=== PATIENT | male | born 1950 | race African-American/Black ===

== ENCOUNTER 2019-09-18 09:07 | Inpatient (IN) | payer OTHER ==
--- NOTE | 2019-09-18 09:26 | PDOC ---
History of Present Illness - General Chief Complaint: Shortness of Breath Stated Complaint: SOB Time Seen by Provider: 09/18/19 09:24 History Source: Patient Exam Limitations: No Limitations - History of Present Illness Initial Comments: 09/18/19 11:21 69 yo M with a hx of schizophrenia, COPD, CAD (s/p pacemaker), aortic aneurysm, CVA, and previous [place] presents to the emergency department with SOB that began yesterday. The patient is presenting from [facility] (formerly [facility]). Per the patient, he started having SOB last night and was unable to tolerate laying down. He does not use home O2. Denies the following: fevers, chills, cough, chest pain, lightheadedness, headache, arm and neck pain, back pain, and abdominal pain. Allergies: PCN 09/18/19 13:44 Past History - Past Medical History Allergies/Adverse Reactions: Allergies Allergy/AdvReac Type Severity Reaction Status Date / Time Penicillins Allergy Verified 09/18/19 09:31 Home Medications: Ambulatory Orders Albuterol Sulfate Inhaler - [Ventolin HFA Inhaler -] 1 puff IH TID 09/18/19 Amantadine HCl [Amantadine] 100 mg PO DAILY 09/18/19 Carbidopa/Levodopa 10/100 [Sinemet 10/100 -] 1 each PO BID 09/18/19 Citalopram Hydrobromide [Celexa -] 20 mg PO DAILY 09/18/19 Ferrous Sulfate 325 mg PO DAILY 09/18/19 Fluticasone Prop 0.05% Nasal [Flonase -] 2 spray NS DAILY 09/18/19 Fluticasone/Salmeterol [Advair 250-50 Diskus] 1 each IH DAILY 09/18/19 Haloperidol Lactate [Haldol] 5 mg IM MONTHLY 09/18/19 Ipratropium/Albuterol Sulfate [Combivent Respimat 20-100 Mcg] 1 gm IH QID Latanoprost/Pf [Latanoprost 0.005% Eye Drop] 1 drop OU DAILY 09/18/19 Omeprazole Magnesium [Prilosec Otc] 20 mg PO DAILY 09/18/19 Risperidone [Risperdal] 1 mg PO BID 09/18/19 Umeclidinium [place] [Incruse Ellipta] 1 puff IH DAILY 09/18/19 Diltiazem Cd [Cardizem Cd -] 180 mg PO DAILY #30 cap.cd.24h 09/24/19 Folic Acid - 1 mg PO DAILY tablet 09/24/19 Losartan Potassium [Cozaar -] 50 mg PO DAILY #30 tablet 09/24/19 Metoprolol Succinate [Toprol XL -] 100 mg PO BID #60 tab.sr.24h 09/24/19 Simvastatin [Zocor] 20 mg PO HS #30 tablet 09/24/19 Thiamine HCl [Vitamin B1 -] 100 mg PO DAILY tablet 09/24/19 Anemia: No Asthma: No Cancer: No Cardiac Disorders: No CVA: No COPD: No CHF: No Dementia: No Diabetes: No GI Disorders: No Disorders: No HTN: Yes Hypercholesterolemia: Yes Liver Disease: No Seizures: No Thyroid Disease: No - Surgical History Cardiac Surgery: Yes (open heart sx in 1965) - Psycho Social/Smoking Cessation Hx Smoking History: Current every day smoker Have you smoked in the past 12 months: Yes Number of Cigarettes Smoked Daily: 10 'Breaking Loose' booklet given: 10/08/16 Hx Alcohol Use: Yes Drug/Substance Use Hx: No Substance Use Type: Alcohol Hx Substance Use Treatment: Yes Review of Systems - Review of Systems Able to Perform ROS?: Yes Is the patient limited Sami proficient: No Constitutional: No: Chills, Diaphoresis, Fever, Weakness HEENTM: No: Eye Pain, Ear Pain, Nose Pain, Throat Pain, Mouth Pain Respiratory: Yes: Shortness of Breath, SOB with Exertion, SOB at Rest. No: Cough, Hemoptysis Cardiac (ROS): No: Chest Pain, Lightheadedness, Palpitations, Chest Tightness ABD/GI: No: Constipated, Diarrhea, Nausea, Rectal Bleeding, Vomiting, Tarry Stools : No: Burning, Dysuria, Hematuria Musculoskeletal: No: Back Pain, Joint Pain, Neck Pain Integumentary: No: Bruising, Erythema, Rash Neurological: No: Headache, Numbness, Tingling, Tremors Psychiatric: No: Change in Appetite Endocrine: No: Unexplained Weight Loss Hematologic/Lymphatic: No: Anemia *Physical Exam - Physical Exam General Appearance: Yes: Nourished, Appropriately Dressed. No: Apparent Distress, Intoxicated HEENT: positive: EOMI, HYACINTH, Normal Voice, Symmetrical, Pharynx Normal, Hearing Grossly Normal. negative: Pale Conjunctivae, Scleral Icterus (R), Scleral Icterus (L), Muffled/Hoarse voice, Pharyngeal Erythema, Tonsillar Exudate, Tonsillar Erythema, Nasal Congestion, Rhinorrhea, Sinus Tenderness, Excessive drooling Neck: positive: Trachea midline, Supple. negative: Tender, Lymphadenopathy (R) , Lymphadenopathy (L), Tender lateral, Tender midline Respiratory/Chest: positive: Decreased Breath Sounds. negative: Chest Tender, Respiratory Distress, Accessory Muscle Use, Crackles, Rales, Rhonchi, Stridor, Wheezing Cardiovascular: positive: Regular Rhythm, S1, S2, Tachycardia, Systolic Murmur ( grade 1) Gastrointestinal/Abdominal: positive: Normal Bowel Sounds, Flat, Soft. negative : Tender, Distended, Guarding, Rebound Lymphatic: negative: Adenopathy Musculoskeletal: positive: Normal Inspection. negative: CVA Tenderness, Vertebral Tenderness Extremity: positive: Normal Capillary Refill, Normal Inspection, Normal Range of Motion. negative: Tender, Swelling, Calf Tenderness Integumentary: positive: Normal Color, Dry, Warm Neurologic: positive: Fully Oriented, Alert, Normal Mood/Affect ED Treatment Course - LABORATORY CBC & Chemistry Diagram: 09/22/19 06:18 09/23/19 05:48 Medical Decision Making - Medical Decision Making 69 yo M with a hx of schizophrenia, COPD, CAD (s/p pacemaker), aortic aneurysm, CVA, and previous WI presents to the emergency department with SOB that began yesterday. Initial vitals: Initial Vital Signs Temp Pulse Resp BP Pulse Ox 98.6 F 108 H 25 H 117/88 93 L 09/18/19 09:25 09/18/19 09:25 09/18/19 09:25 09/18/19 09:25 09/18/19 09:25 Work up: patient presents with SOB that can be secondary to COPD vs CHF exacerbation or a mixed aspect. The patient endorses SOB with positional changes while in bed and is unable to lay down. Will obtain cbc, cmp, trops, bnp, CXR. Laboratory Tests 09/18/19 09/18/19 09/18/19 10:15 10:15 10:15 WBC 14.6 H RBC 3.77 L Hgb 11.0 L Hct 32.9 L MCV 87.2 MCH 29.2 MCHC 33.5 RDW 14.3 Plt Count 160 D MPV 7.1 L D Absolute Neuts (auto) 13.3 H Neutrophils % 90.8 H Lymphocytes % 2.6 L Monocytes % 6.3 Eosinophils % 0.2 Basophils % 0.1 Nucleated RBC % 0 PT with INR 19.50 H INR 1.64 H Sodium 116 L* Potassium 5.3 H Chloride 84 L Carbon Dioxide 23 Anion Gap 9 BUN 19.9 H Creatinine 1.1 Est GFR (CKD-EPI)AfAm 79.52 Est GFR (CKD-EPI)NonAf 68.61 Random Glucose 117 H Calcium 8.4 L Total Bilirubin 1.0 AST 27 ALT 27 Alkaline Phosphatase 66 Creatine Kinase 260 Creatine Kinase Index 1.8 CK-MB (CK-2) 4.8 H Troponin I < 0.02 B-Natriuretic Peptide 1009.1 H Total Protein 7.4 Albumin 3.6 Urine Color Urine Appearance Urine pH Ur Specific [place] Urine Protein Urine Glucose (UA) Urine Ketones Urine Blood Urine Nitrite Urine Bilirubin Urine Urobilinogen Ur Leukocyte Esterase Urine Osmolality Ur Random Sodium Influenza A (Rapid) Influenza B (Rapid) 09/18/19 09/18/19 09/18/19 12:30 12:30 12:30 WBC RBC Hgb Hct MCV MCH MCHC RDW Plt Count MPV Absolute Neuts (auto) Neutrophils % Lymphocytes % Monocytes % Eosinophils % Basophils % Nucleated RBC % PT with INR INR Sodium Potassium Chloride Carbon Dioxide Anion Gap BUN Creatinine Est GFR (CKD-EPI)AfAm Est GFR (CKD-EPI)NonAf Random Glucose Calcium Total Bilirubin AST ALT Alkaline Phosphatase Creatine Kinase Creatine Kinase Index CK-MB (CK-2) Troponin I B-Natriuretic Peptide Total Protein Albumin Urine Color Yellow Urine Appearance Clear Urine pH 7.0 Ur Specific [place] 1.004 L Urine Protein Negative Urine Glucose (UA) Negative Urine Ketones Negative Urine Blood Negative Urine Nitrite Negative Urine Bilirubin Negative Urine Urobilinogen 1.0 Ur Leukocyte Esterase Negative Urine Osmolality 116 L Ur Random Sodium 14 L Influenza A (Rapid) Influenza B (Rapid) 09/18/19 09/18/19 12:30 12:34 WBC RBC Hgb Hct MCV MCH MCHC RDW Plt Count MPV Absolute Neuts (auto) Neutrophils % Lymphocytes % Monocytes % Eosinophils % Basophils % Nucleated RBC % PT with INR INR Sodium 119 L Potassium 5.0 Chloride 85 L Carbon Dioxide 24 Anion Gap 10 BUN 19.4 H Creatinine 1.0 Est GFR (CKD-EPI)AfAm 89.23 Est GFR (CKD-EPI)NonAf 76.99 Random Glucose 109 H Calcium 8.6 Total Bilirubin AST ALT Alkaline Phosphatase Creatine Kinase Creatine Kinase Index CK-MB (CK-2) Troponin I B-Natriuretic Peptide Total Protein Albumin Urine Color Urine Appearance Urine pH Ur Specific [place] Urine Protein Urine Glucose (UA) Urine Ketones Urine Blood Urine Nitrite Urine Bilirubin Urine Urobilinogen Ur Leukocyte Esterase Urine Osmolality Ur Random Sodium Influenza A (Rapid) Negative Influenza B (Rapid) Negative Patient treated with duoneb and solumedrol. WBC elevated. 116 Na and 5.3 K. Trop negative with increased BNP. Obtained urine osm and Na to determine etiology of hyponatremia. Patient has hyonatremia in a hypervolemic state with CHF exacerbation. Nephrology was consulted and aware CXR shows a patchy infiltrate on the right side; possibly PNA in setting of hyponatremia. Legionella antigen negative. Aztreonam and Vancomycin started 09/18/19 13:55 POCUS: reveals bilateral apical B lines, no pleural effusions, moderate reduction of EF on LV without pericardial effusion. IVC dilated with <50% collapsibility. Patient started on bipap. Patient to be admitted to hospital for severe hyponatremia. Patient at this time will not require hypertonic saline as they are not in an AMS state. EKG: ventricular rate is 108 bpm, Sinus tachycardia with q waves in V2-V3. No ST elevations or depressions. Discharge - Discharge Information Problems reviewed: Yes Clinical Impression/Diagnosis: CHF exacerbation, COPD (chronic obstructive pulmonary disease), Hyponatremia - Follow up/Referral - Patient Discharge Instructions - Post Discharge Activity
[2019-09-18] MEDS ORDERED: methylPREDNISolone NA SUCC 125 MG/2 ML VIAL IVPB ONE (09:53)
[2019-09-18] MEDS ORDERED: ALBUTEROL SO4 2.5/IPRATROPIUM 0.5 INH SOL 3 ML VIAL.NEB. NEB ONE ×2 (09:53→09:57)
[2019-09-18] MEDS ORDERED: methylPREDNISolone NA SUCC 125 MG/2 ML VIAL ONE (09:57)
[2019-09-18 10:39] LABS: BASO % 0.1 % (0-2.0); EOS % 0.2 % (0-4.5); HEMATOCRIT 32.9 % (35.4-49); LYMPH % 2.6 % (8-40); MCH 29.2 pg (25.7-33.7); MCHC 33.5 g/dl (32.0-35.9); MEAN CELL VOLUME 87.2 fl (80-96); MEAN PLT VOLUME 7.1 fl (7.5-11.1); MONO % 6.3 % (3.8-10.2); NEUT % 90.8 % (42.8-82.8); PLATELET COUNT 160 K/MM3 (134-434); RBC 3.77 M/mm3 (4.00-5.60); RDW 14.3 % (11.9-15.9); WHITE BLOOD COUNT 14.6 K/mm3 (4.0-10.0)
[2019-09-18 10:56] LABS: INR 1.64 (0.83-1.09); PROTHROMBIN TIME (PATIENT) 19.5 SEC (9.7-13.0)
--- NOTE | 2019-09-18 11:19 | PDOC ---
Documentation entered by Madelaine Obregon SCRIBE, acting as scribe for Misty Bacon MD. Misty Bacon MD: This documentation has been prepared by the Mindi la Brenda, SCRIBE, under my direction and personally reviewed by me in its entirety. I confirm that the documentation accurately reflects all work, treatment, procedures, and medical decision making performed by me. Attending Attestation - Resident Resident Name: Nigel Malone - ED Attending Attestation I have performed the following: I have examined & evaluated the patient, The case was reviewed & discussed with the resident, I agree w/resident's findings & plan, Exceptions are as noted - HPI HPI: 69 year old male, with a significant PMH of schizophrenia, depression, HTN and HLD who presents with SOB since last night. Denies any fever, recent illness, cough, medication non-adherence. Allergies: Penicillins Past surgical history: Open heart sx in 1965 Social history: Current everyday smoker and alcohol use. PCP: Ahmet - Physicial Exam PE: GENERAL: Awake, alert, and fully oriented, in no acute distress HEAD: No signs of trauma EYES: PERRLA, EOMI, sclera anicteric, conjunctiva clear ENT: Auricles normal inspection, hearing grossly normal, nares patent, oropharynx clear without exudates. Moist mucosa NECK: Normal ROM, supple, no lymphadenopathy, JVD, or masses LUNGS: Dec air entry B/L. No wheezes, no crackles HEART: Regular rate and rhythm, normal S1 and S2, no murmurs, rubs or gallops ABDOMEN: Soft, nontender, normoactive bowel sounds. No guarding, no rebound. No masses EXTREMITIES: Normal range of motion, no edema. No clubbing or cyanosis. No cords, erythema, or tenderness NEUROLOGICAL: Cranial nerves II through XII grossly intact. Normal speech. Motor and sensation intact SKIN: Warm, dry, normal turgor, no rashes or lesions noted. - Medical Decision Making Pt with SOB, history of COPD/CHF. Suspect this is a mixed disturbance. Will obtain labs, CXR. Will place on BiPAP, as he appears to have intravascular depletion, and lasix may cause hypotension at present. Will monitor on BiPAP, will consider lasix when he improves. Addendum: Patient found to have hyponatremia which appears to be hypervolemic. Case discussed with renal. As patient is not altered, will not consider hypertonic saline at this point. Will admit.
[2019-09-18 11:36] LABS: ALBUMIN 3.6 g/dl (3.4-5.0); ALK PHOS 66 U/L (45-117); ANION GAP 9 MMOL/L (8-16); BLOOD UREA NITROGEN 19.9 mg/dL (7-18); CALCIUM 8.4 mg/dL (8.5-10.1); CHLORIDE 84 mmol/L (98-107); CO2 23 mmol/L (21-32); CREATININE 1.1 mg/dL (0.55-1.3); GLUCOSE,RANDOM 117 mg/dL (74-106); N-TERMINAL BNP 1009.1 pg/ml (5-125); POTASSIUM 5.3 mmol/L (3.5-5.1); SGOT/AST 27 U/L (15-37); SGPT/ALT 27 U/L (13-61); TOT PROT 7.4 g/dl (6.4-8.2)
[2019-09-18 11:44] LABS: SODIUM 116 mmol/L (136-145)
[2019-09-18] MEDS ORDERED: AZITHROMYCIN IVPB 500 MG in DEXTROSE 5%-WATER - 250 ML IVPB ONE (12:11)
[2019-09-18] MEDS ORDERED: AZTREONAM 2 GM in DEXTROSE 5%-WATER 100 ML IVPB ONE (12:11)
[2019-09-18] MEDS ORDERED: VANCOMYCIN 2,000 MG in DEXTROSE 5%-WATER - 250 ML IVPB ONE (12:16)
[2019-09-18] MEDS ORDERED: VANCOMYCIN 2,000 MG in DEXTROSE 5%-WATER - 500 ML IVPB ONE (12:24)
[2019-09-18] MEDS ORDERED: AZITHROMYCIN IVPB 500 MG/250 ML BAG IVPB ONE (12:45)
[2019-09-18 13:00] LABS: URINE APPEARANCE CLEAR; URINE BILIRUBIN NEGATIVE (NEGATIVE); URINE COLOR YELLOW; URINE GLUCOSE (UA) NEGATIVE (NEGATIVE); URINE KETONE NEGATIVE (NEGATIVE); URINE LEUK ESTERASE NEGATIVE (NEGATIVE); URINE NITRITE NEGATIVE (NEGATIVE); URINE PROTEIN NEGATIVE (NEGATIVE)
--- NOTE | 2019-09-18 13:17 | EKG ---
Test Reason : Blood Pressure : / mmHG Vent. Rate : 108 BPM Atrial Rate : 108 BPM P-R Int : 188 ms QRS Dur : 080 ms QT Int : 316 ms P-R-T Axes : 051 -05 058 degrees QTc Int : 423 ms SINUS TACHYCARDIA ANTEROSEPTAL INFARCT , AGE UNDETERMINED ABNORMAL ECG NO PREVIOUS ECGS AVAILABLE Confirmed by VIOLA DE LA VEGA MD ([id number]) on 09/18/2019 1:16:58 PM Referred By: Confirmed By:VIOLA DE LA VEGA MD
[2019-09-18 13:25] LABS: BLOOD UREA NITROGEN 19.4 mg/dL (7-18); CALCIUM 8.6 mg/dL (8.5-10.1)
--- NOTE | 2019-09-18 14:19 | PN ---
Teaching Attending Note Name of Resident: Radha Ramsey ATTENDING PHYSICIAN STATEMENT I saw and evaluated the patient. I reviewed the resident's note and discussed the case with the resident. I agree with the resident's findings and plan as documented. SUBJECTIVE: He is a 69 Y/O M W Etoh abuse, chronic hyponatermia( sen in the labs in [facility]) known Afib/ Aflutter who was supposed to be on Amiodarone for rate control and PPM ( tachybradicadia). He was seen in the EP clinic in [place] [id number] on 09/16/2019 during that visit he had Mary/ AFL with RVR, and plan was to monitor him as he had not started Amiodarone at home and if he still keeps to be tachycardic to start him on Amiodarone. He states that for 1 week he has been having gradual onset, worsening RUELAS, denies any palpitation, lightheadedness with the episode. At this time, He states that he called 911 as this episode was more severe than the ones before.states that he has taken all of his medications this morning. In the ED there was concern for volume overload, Patient was placed on BIPAP. but he has not been hypoxic since admission to the ED. He has no sign of volume overload, has very trace edema, rales are very minimal. he has had no recent TTE of cardiac cath (last cath in 2008 with mid LAD disease with no need for intervention) OBJECTIVE: CBCD WBC 14.6 K/mm3 (4.0-10.0) H 09/18/19 10:15 RBC 3.77 M/mm3 (4.00-5.60) L 09/18/19 10:15 Hgb 11.0 GM/dL (11.7-16.9) L 09/18/19 10:15 Hct 32.9 % (35.4-49) L 09/18/19 10:15 MCV 87.2 fl (80-96) 09/18/19 10:15 MCHC 33.5 g/dl (32.0-35.9) 09/18/19 10:15 RDW 14.3 % (11.9-15.9) 09/18/19 10:15 Plt Count 160 K/MM3 (134-434) D 09/18/19 10:15 MPV 7.1 fl (7.5-11.1) L D 09/18/19 10:15 CMP Sodium 119 mmol/L (136-145) L 09/18/19 12:34 Potassium 5.0 mmol/L (3.5-5.1) 09/18/19 12:34 Chloride 85 mmol/L (98-107) L 09/18/19 12:34 Carbon Dioxide 24 mmol/L (21-32) 09/18/19 12:34 Anion Gap 10 MMOL/L (8-16) 09/18/19 12:34 BUN 19.4 mg/dL (7-18) H 09/18/19 12:34 Creatinine 1.0 mg/dL (0.55-1.3) 09/18/19 12:34 Random Glucose 109 mg/dL (74-106) H 09/18/19 12:34 Calcium 8.6 mg/dL (8.5-10.1) 09/18/19 12:34 Total Bilirubin 1.0 mg/dL (0.2-1) 09/18/19 10:15 AST 27 U/L (15-37) 09/18/19 10:15 ALT 27 U/L (13-61) 09/18/19 10:15 Alkaline Phosphatase 66 U/L (45-117) 09/18/19 10:15 Total Protein 7.4 g/dl (6.4-8.2) 09/18/19 10:15 Albumin 3.6 g/dl (3.4-5.0) 09/18/19 10:15 CARDIAC ENZYMES Creatine Kinase 260 U/L (26-308) 09/18/19 10:15 Troponin I < 0.02 ng/ml (0.00-0.05) 09/18/19 10:15 Vital Signs - 24 hr 09/18/19 09/18/19 09/18/19 09:25 09:30 09:42 Temperature 98.6 F 98.6 F Pulse Rate 108 H Pulse Rate [ 105 H Apical] Respiratory 25 H 25 H Rate Blood Pressure 117/88 Blood Pressure 117/88 [Right Arm] O2 Sat by Pulse 93 L 95 95 Oximetry (%) 09/18/19 09/18/19 09/18/19 10:05 11:52 12:19 Temperature 98.1 F Pulse Rate Pulse Rate [ 110 H 103 H Apical] Respiratory 20 22 H Rate Blood Pressure Blood Pressure 115/85 115/85 [Right Arm] O2 Sat by Pulse 100 95 98 Oximetry (%) 09/18/19 12:46 Temperature 99.5 F Pulse Rate Pulse Rate [ Apical] Respiratory Rate Blood Pressure Blood Pressure [Right Arm] O2 Sat by Pulse Oximetry (%) PhEX: Saturating 100% on RA, off BIPAP, not tachycardic and in no respiratory distress at this time. CVS:S1S2, tachy to 120 Lungs: Has good air movement, minimal bibasilar rales no wheezing Abd; murphy hernia with no tenderness EXT: has no edema ASSESSMENT AND PLAN: At this time the RUELAS and SOB is most likely in the setting of demand ischemia rather than pulmonary etiology such as pulmonary edema VS COPD exacerbation. At this time will treat for possible [place] ( is already on AC), will get better HR control with starting the patient on Amiodarone. No need for diuretics at this time. Will C/W BB Afib/ afluter with RVR, rate cotrol , C/W AC will get TTE Will MINOO Will give DAPT, high dose statin He has known CAD, is active smoker, obese, Etoh abuser Hyponatremia: chronic , will send urine osmolality and studies, most likely in the setting of chronic Etoh abuse Etoh abuse: 3-4 x24 ounce beers/ day Will start on thaimin, folate, monitor for withdrawal.
--- NOTE | 2019-09-18 14:19 | CONSULT ---
Consultation: REQUESTING PROVIDER: Dr Bacon CONSULT REQUEST: Hyponatremia HISTORY OF PRESENT ILLNESS: 69 y.o male with PMH of schizophrenia, CAD, CABG (1965) AAA, CVA, MT presents to the ED with complaints of shortness of breath. patient states that his shortness of breath began last night- he states that he was walking around his apartment and developed sudden onset of dyspnea- he denies any cough/fevers or sick contacts. He also endorsed orthopnea; he does not feel that his legs are swollen-he does use inhalers and said that last night he had to use them numerous times. he does not endorse any dizziness/weakness/numbness/ changes in gait; patient does endorse drinking around 3 24z a day in the ED- patient was placed on BIPAP notable albs: Na 115-->119, K 5.3-->5.0, Cr 1.0, BNP 1009 CXR done showing cardiomegaly with possible infiltrate developing at the left base- patient was given duonebs; vanc/ceftriaxone/azithro REVIEW OF SYSTEMS: CONSTITUTIONAL: Absent: fever, chills, diaphoresis, generalized weakness, malaise, loss of appetite, weight change HEENT: Absent: rhinorrhea, nasal congestion, throat pain, throat swelling, difficulty swallowing, mouth swelling, ear pain, eye pain, visual changes CARDIOVASCULAR: Absent: chest pain, syncope, palpitations, irregular heart rate, lightheadedness , peripheral edema RESPIRATORY: Present: shortness of breath, dyspnea with exertion, orthopnea Absent: cough, , wheezing, stridor, hemoptysis GASTROINTESTINAL: Absent: abdominal pain, abdominal distension, nausea, vomiting, diarrhea, constipation, melena, hematochezia GENITOURINARY: Absent: dysuria, frequency, urgency, hesitancy, hematuria, flank pain, genital pain MUSCULOSKELETAL: Absent: myalgia, arthralgia, joint swelling, back pain, neck pain SKIN: Absent: rash, itching, pallor HEMATOLOGIC/IMMUNOLOGIC: Absent: easy bleeding, easy bruising, lymphadenopathy, frequent infections ENDOCRINE: Absent: unexplained weight gain, unexplained weight loss, heat intolerance, cold intolerance NEUROLOGIC: Absent: headache, focal weakness or paresthesias, dizziness, unsteady gait, seizure, mental status changes, bladder or bowel incontinence PSYCHIATRIC: Absent: anxiety, depression, suicidal or homicidal ideation, hallucinations. PHYSICAL EXAMINATION Vital Signs - 24 hr 01/17/20 01/17/20 01/17/20 09:25 09:30 09:42 Temperature 98.6 F 98.6 F Pulse Rate 108 H Pulse Rate [ 105 H Apical] Respiratory 25 H 25 H Rate Blood Pressure 117/88 Blood Pressure 117/88 [Right Arm] O2 Sat by Pulse 93 L 95 95 Oximetry (%) 09/18/19 09/18/19 09/18/19 10:05 11:52 12:19 Temperature 98.1 F Pulse Rate Pulse Rate [ 110 H 103 H Apical] Respiratory 20 22 H Rate Blood Pressure Blood Pressure 115/85 115/85 [Right Arm] O2 Sat by Pulse 100 95 98 Oximetry (%) 09/18/19 12:46 Temperature 99.5 F Pulse Rate Pulse Rate [ Apical] Respiratory Rate Blood Pressure Blood Pressure [Right Arm] O2 Sat by Pulse Oximetry (%) GENERAL: Awake, alert, and fully oriented, wearing BIPAP in no acute distress.. EYES: PEERLA: EOMI: no scleral icterus NECK: no JVD; no lymphadenopathy LUNGS: CTA B/L; no rales, rhonchi or weezing . HEART: Regular rate and rhythm, normal S1 and S2 without murmur, rub or gallop. ABDOMEN: Soft, NT/ND +BS in all 4 quadrants . MUSCULOSKELETAL: Normal range of motion at all joints. No bony deformities or tenderness. No CVA tenderness. EXTREMITIES: warm; well-perfused, no clubbing/cyanosis trace LE edema B.L PSYCHIATRIC: Cooperative. Good eye contact. Appropriate mood and affect. SKIN: Warm, dry, normal turgor, no rashes or lesions noted. Laboratory Results - last 24 hr 09/18/19 09/18/19 09/18/19 10:15 10:15 10:15 WBC 14.6 H RBC 3.77 L Hgb 11.0 L Hct 32.9 L MCV 87.2 MCH 29.2 MCHC 33.5 RDW 14.3 Plt Count 160 D MPV 7.1 L D Absolute Neuts (auto) 13.3 H Neutrophils % 90.8 H Lymphocytes % 2.6 L Monocytes % 6.3 Eosinophils % 0.2 Basophils % 0.1 Nucleated RBC % 0 PT with INR 19.50 H INR 1.64 H Sodium 116 L* Potassium 5.3 H Chloride 84 L Carbon Dioxide 23 Anion Gap 9 BUN 19.9 H Creatinine 1.1 Est GFR (CKD-EPI)AfAm 79.52 Est GFR (CKD-EPI)NonAf 68.61 Random Glucose 117 H Calcium 8.4 L Total Bilirubin 1.0 AST 27 ALT 27 Alkaline Phosphatase 66 Creatine Kinase 260 Creatine Kinase Index 1.8 CK-MB (CK-2) 4.8 H Troponin I < 0.02 B-Natriuretic Peptide 1009.1 H Total Protein 7.4 Albumin 3.6 Urine Color Urine Appearance Urine pH Ur Specific [place] Urine Protein Urine Glucose (UA) Urine Ketones Urine Blood Urine Nitrite Urine Bilirubin Urine Urobilinogen Ur Leukocyte Esterase Ur Random Sodium Influenza A (Rapid) Influenza B (Rapid) 09/18/19 09/18/19 09/18/19 12:30 12:30 12:30 WBC RBC Hgb Hct MCV MCH MCHC RDW Plt Count MPV Absolute Neuts (auto) Neutrophils % Lymphocytes % Monocytes % Eosinophils % Basophils % Nucleated RBC % PT with INR INR Sodium Potassium Chloride Carbon Dioxide Anion Gap BUN Creatinine Est GFR (CKD-EPI)AfAm Est GFR (CKD-EPI)NonAf Random Glucose Calcium Total Bilirubin AST ALT Alkaline Phosphatase Creatine Kinase Creatine Kinase Index CK-MB (CK-2) Troponin I B-Natriuretic Peptide Total Protein Albumin Urine Color Yellow Urine Appearance Clear Urine pH 7.0 Ur Specific [place] 1.004 L Urine Protein Negative Urine Glucose (UA) Negative Urine Ketones Negative Urine Blood Negative Urine Nitrite Negative Urine Bilirubin Negative Urine Urobilinogen 1.0 Ur Leukocyte Esterase Negative Ur Random Sodium 14 L Influenza A (Rapid) Negative Influenza B (Rapid) Negative 09/18/19 12:34 WBC RBC Hgb Hct MCV MCH MCHC RDW Plt Count MPV Absolute Neuts (auto) Neutrophils % Lymphocytes % Monocytes % Eosinophils % Basophils % Nucleated RBC % PT with INR INR Sodium 119 L Potassium 5.0 Chloride 85 L Carbon Dioxide 24 Anion Gap 10 BUN 19.4 H Creatinine 1.0 Est GFR (CKD-EPI)AfAm 89.23 Est GFR (CKD-EPI)NonAf 76.99 Random Glucose 109 H Calcium 8.6 Total Bilirubin AST ALT Alkaline Phosphatase Creatine Kinase Creatine Kinase Index CK-MB (CK-2) Troponin I B-Natriuretic Peptide Total Protein Albumin Urine Color Urine Appearance Urine pH Ur Specific [place] Urine Protein Urine Glucose (UA) Urine Ketones Urine Blood Urine Nitrite Urine Bilirubin Urine Urobilinogen Ur Leukocyte Esterase Ur Random Sodium Influenza A (Rapid) Influenza B (Rapid) ASSESSMENT/PLAN: 69 y.o male with PMH of schizophrenia, CAD, CABG (1965) AAA, CVA, MT presents to the ED with complaints of shortness of breath. patient states that his shortness of breath began last night found to be hyponatremic to 116 on arrival #Hyponatremia f/u echo results fluid restriction f/u urine and plasma osmolalities avoid overcorrection of sodium; no more than 8-10 in 24hours BMP q4H Dispo: We will continue to follow the patient. Thank you for this consultative opportunity. Visit type - Emergency Visit Emergency Visit: Yes ED Registration Date: 09/18/19 Care time: The patient presented to the Emergency Department on the above date and was hospitalized for further evaluation of their emergent condition. - New Patient This patient is new to me today: Yes Date on this admission: 09/18/19 - Critical Care Critical Care patient: No ATTENDING PHYSICIAN STATEMENT I saw and evaluated the patient. I reviewed the resident's note and discussed the case with the resident. I agree with the resident's findings and plan as documented. SUBJECTIVE: OBJECTIVE: ASSESSMENT AND PLAN:
[2019-09-18] MEDS ORDERED: METOPROLOL TARTRATE 5 MG/5 ML VIAL IVPUSH ONE (14:47)
[2019-09-18] MEDS ORDERED: METOPROLOL TARTRATE 5 MG/5 ML VIAL ONE (14:51)
--- NOTE | 2019-09-18 14:59 | HP ---
CHIEF COMPLAINT: sob PCP: Dr. Leo HISTORY OF PRESENT ILLNESS: 69 y.o male with PMHx of schizophrenia, CAD, CABG (1965) AAA, PAfib/Aflutter, s/ p recent PPM, ETOH abuse (3-24oz a day) dependence , chronic hyponatremia, presenting to the ED from [facility] because of worsening SOB over the past week with exertion. Says he used to walk 2-3 blocks before getting tired but now has to slow down when walking the same amount. He presented today after developing severe SOB when walking. He says he sees a assistant sales director but does not recall their name. Per [facility] records, He was recently discharged a few months ago from [facility] with fall, found hyponatremic and had Afib/Aflutter with RVR, then transferred for [employer] Pacemaker placement on 07/28. He was then seen at [facility] on 09/16/2019 during that visit he had Afib/AFL with RVR, and the plan plan was to monitor him and if not improved to be started on Amiodarone for tachy-dora syndrome, which was never done. Patient denies palpitations, recent illness, nausea, vomiting, fevers, chills, diarrhea, urinary changes. In the ER there was concern for volume overload and placed the patient on BiPap= . Na 115-->119, K 5.3-->5.0, Cr 1.0, BNP 1009 CXR done showing cardiomegaly with possible infiltrate developing at the left base- patient was given duonebs; vanc /ceftriaxone/azithro Recent Travel: none PAST MEDICAL HISTORY: per HPI PAST SURGICAL HISTORY: Social History: Smoking: smokes half ppd Alcohol: 3-24oz beers a day Drugs: denies Allergies Penicillins Allergy (Verified 09/18/19 09:31) HOME MEDICATIONS: Home Medications Medication Instructions Recorded Albuterol Sulfate Inhaler - 1 puff IH TID 09/18/19 [Ventolin Hfa Inhaler -] Amantadine HCl [Amantadine] 100 mg PO DAILY 09/18/19 Apixaban [Eliquis] 5 mg PO BID 09/18/19 Carbidopa/Levodopa [Sinemet 1 each PO BID 09/18/19 -] Citalopram Hydrobromide [Celexa -] 20 mg PO DAILY 09/18/19 Diclofenac Potassium [Zipsor] 25 mg PO BID 09/18/19 Ferrous Sulfate 325 mg PO DAILY 09/18/19 Fluticasone Prop 0.05% Nasal 2 spray NS DAILY 09/18/19 [Flonase -] Fluticasone/Salmeterol [Advair 1 each IH DAILY 09/18/19 250-50 Diskus] Haloperidol Lactate [Haldol] 5 mg IM MONTHLY 09/18/19 Ipratropium/Albuterol Sulfate 1 gm IH QID 09/18/19 [Combivent Respimat Inhal [place]] Latanoprost/Pf [Latanoprost 0.005% 1 drop OU DAILY 09/18/19 Eye Drop] Losartan Potassium [Cozaar] 100 mg PO DAILY 09/18/19 Metoprolol Succinate [Toprol Xl] 25 mg PO DAILY 09/18/19 Nifedipine ER [Procardia Xl -] 30 mg PO DAILY 09/18/19 Omeprazole Magnesium [Prilosec Otc] 20 mg PO DAILY 09/18/19 Risperidone [Risperdal] 1 mg PO BID 09/18/19 Simvastatin [Zocor -] 40 mg PO HS 09/18/19 Umeclidinium [place] [Incruse 1 puff IH DAILY 09/18/19 Ellipta] REVIEW OF SYSTEMS per HPI PHYSICAL EXAMINATION Vital Signs - 24 hr 09/18/19 09/18/19 09/18/19 09:25 09:30 09:42 Temperature 98.6 F 98.6 F Pulse Rate 108 H Pulse Rate [ 105 H Apical] Respiratory 25 H 25 H Rate Blood Pressure 117/88 Blood Pressure 117/88 [Right Arm] O2 Sat by Pulse 93 L 95 95 Oximetry (%) 09/18/19 09/18/19 09/18/19 10:05 11:52 12:19 Temperature 98.1 F Pulse Rate Pulse Rate [ 110 H 103 H Apical] Respiratory 20 22 H Rate Blood Pressure Blood Pressure 115/85 115/85 [Right Arm] O2 Sat by Pulse 100 95 98 Oximetry (%) 09/18/19 12:46 Temperature 99.5 F Pulse Rate Pulse Rate [ Apical] Respiratory Rate Blood Pressure Blood Pressure [Right Arm] O2 Sat by Pulse Oximetry (%) GENERAL: a/o x 3, in NAD. off bipap EYES: PEERLA: EOMI: no scleral icterus NECK: no JVD; no lymphadenopathy LUNGS: mild crackles at the bases HEART: Regular rate and rhythm, normal S1 and S2 without murmur, rub or gallop. ABDOMEN: Soft, nt, nd, +abdominal hernia EXTREMITIES: warm; trace LE edema b/l SKIN: Warm, dry, normal turgor, no rashes or lesions noted. Laboratory Results - last 24 hr 09/18/19 09/18/19 09/18/19 10:15 10:15 10:15 WBC 14.6 H RBC 3.77 L Hgb 11.0 L Hct 32.9 L MCV 87.2 MCH 29.2 MCHC 33.5 RDW 14.3 Plt Count 160 D MPV 7.1 L D Absolute Neuts (auto) 13.3 H Neutrophils % 90.8 H Lymphocytes % 2.6 L Monocytes % 6.3 Eosinophils % 0.2 Basophils % 0.1 Nucleated RBC % 0 PT with INR 19.50 H INR 1.64 H Sodium 116 L* Potassium 5.3 H Chloride 84 L Carbon Dioxide 23 Anion Gap 9 BUN 19.9 H Creatinine 1.1 Est GFR (CKD-EPI)AfAm 79.52 Est GFR (CKD-EPI)NonAf 68.61 Random Glucose 117 H Calcium 8.4 L Total Bilirubin 1.0 AST 27 ALT 27 Alkaline Phosphatase 66 Creatine Kinase 260 Creatine Kinase Index 1.8 CK-MB (CK-2) 4.8 H Troponin I < 0.02 B-Natriuretic Peptide 1009.1 H Total Protein 7.4 Albumin 3.6 Urine Color Urine Appearance Urine pH Ur Specific [place] Urine Protein Urine Glucose (UA) Urine Ketones Urine Blood Urine Nitrite Urine Bilirubin Urine Urobilinogen Ur Leukocyte Esterase Ur Random Sodium Influenza A (Rapid) Influenza B (Rapid) 09/18/19 09/18/19 09/18/19 12:30 12:30 12:30 WBC RBC Hgb Hct MCV MCH MCHC RDW Plt Count MPV Absolute Neuts (auto) Neutrophils % Lymphocytes % Monocytes % Eosinophils % Basophils % Nucleated RBC % PT with INR INR Sodium Potassium Chloride Carbon Dioxide Anion Gap BUN Creatinine Est GFR (CKD-EPI)AfAm Est GFR (CKD-EPI)NonAf Random Glucose Calcium Total Bilirubin AST ALT Alkaline Phosphatase Creatine Kinase Creatine Kinase Index CK-MB (CK-2) Troponin I B-Natriuretic Peptide Total Protein Albumin Urine Color Yellow Urine Appearance Clear Urine pH 7.0 Ur Specific [place] 1.004 L Urine Protein Negative Urine Glucose (UA) Negative Urine Ketones Negative Urine Blood Negative Urine Nitrite Negative Urine Bilirubin Negative Urine Urobilinogen 1.0 Ur Leukocyte Esterase Negative Ur Random Sodium 14 L Influenza A (Rapid) Negative Influenza B (Rapid) Negative 09/18/19 12:34 WBC RBC Hgb Hct MCV MCH MCHC RDW Plt Count MPV Absolute Neuts (auto) Neutrophils % Lymphocytes % Monocytes % Eosinophils % Basophils % Nucleated RBC % PT with INR INR Sodium 119 L Potassium 5.0 Chloride 85 L Carbon Dioxide 24 Anion Gap 10 BUN 19.4 H Creatinine 1.0 Est GFR (CKD-EPI)AfAm 89.23 Est GFR (CKD-EPI)NonAf 76.99 Random Glucose 109 H Calcium 8.6 Total Bilirubin AST ALT Alkaline Phosphatase Creatine Kinase Creatine Kinase Index CK-MB (CK-2) Troponin I B-Natriuretic Peptide Total Protein Albumin Urine Color Urine Appearance Urine pH Ur Specific [place] Urine Protein Urine Glucose (UA) Urine Ketones Urine Blood Urine Nitrite Urine Bilirubin Urine Urobilinogen Ur Leukocyte Esterase Ur Random Sodium Influenza A (Rapid) Influenza B (Rapid) ASSESSMENT/PLAN: PMHx of schizophrenia, CAD, CABG (1965) AAA, PAfib/Aflutter, s/p recent PPM, ETOH abuse (3-24oz a day) dependence , chronic hyponatremia, presenting to the ED from [facility] because of worsening SOB over the past week with exertion. #SOB -likely 2/2 CHF -trop neg x 2, FU repeat -tele monitoring -mild volume overload. if in respiratory distress give 20mg IV lasix. -echo -cont home meds -no amio at this time per cardiology -i/o -CXR done showing cardiomegaly with possible infiltrate developing at the left base. -no abx at this time. low clinical suspicion for pna #hx of Afib/Aflutter -rate control toprol 25mg BID per cards -cont ax #Severe hyponatremia -patient with chronic hyponatremia per records -fluid restriction -f/u urine and plasma osmolalities -avoid overcorrection of sodium; no more than 8-10 in 24hours -BMP q4H #CAD -cont. current management. #Etoh abuse -counseled patient on importance of quitting drinking. #dvt ppx -eliquis Visit type - Emergency Visit Emergency Visit: Yes ED Registration Date: 09/18/19 Care time: The patient presented to the Emergency Department on the above date and was hospitalized for further evaluation of their emergent condition. - New Patient This patient is new to me today: Yes Date on this admission: 09/22/19 - Critical Care Critical Care patient: No ATTENDING PHYSICIAN STATEMENT I saw and evaluated the patient. I reviewed the resident's note and discussed the case with the resident. I agree with the resident's findings and plan as documented. SUBJECTIVE: OBJECTIVE: ASSESSMENT AND PLAN:
[2019-09-18] MEDS ORDERED: NITROGLYCERIN SUBLINGUAL 1/200 0.3 MG BTL SL ONE (15:33)
[2019-09-18] MEDS ORDERED: AMIODARONE HCL 150 MG/3 ML VIAL IVPUSH ONE ×3 (15:38→16:30)
[2019-09-18] MEDS ORDERED: ASPIRIN 325 MG ENTERIC COATED TABLET (FP) PO ONE (15:43)
[2019-09-18] MEDS ORDERED: CLOPIDOGREL BISULFATE 300 MG TABLET PO ONE (15:43)
--- NOTE | 2019-09-18 16:01 | CON.CARD ---
Cardiology Consult (text) - Consultation Consultation Note: cc: sob hpi: 69 m hx schizophrenia, copd, afib with tachy/dora s/p ppm, cva, cad/mi with last cath 2008 with non obs dz, etoh abuse, smoker, here with sob. Past several days with sob and orthopnea. No cp palps dizzy loc pnd orthopnea le edema. Found to have na 116. pmh: per hpi psh: ppm social: +tob +etoh abuse fam: no premature cad, scd ros: per hpi; all others nl meds: Ambulatory Orders Albuterol Sulfate Inhaler - [Ventolin Hfa Inhaler -] 1 puff IH TID 09/18/19 Amantadine HCl [Amantadine] 100 mg PO DAILY 09/18/19 Apixaban [Eliquis] 5 mg PO BID 09/18/19 Carbidopa/Levodopa 10/100 [Sinemet 10/100 -] 1 each PO BID 09/18/19 Citalopram Hydrobromide [Celexa -] 20 mg PO DAILY 09/18/19 Diclofenac Potassium [Zipsor] 25 mg PO BID 09/18/19 Ferrous Sulfate 325 mg PO DAILY 09/18/19 Fluticasone Prop 0.05% Nasal [Flonase -] 2 spray NS DAILY 09/18/19 Fluticasone/Salmeterol [Advair 250-50 Diskus] 1 each IH DAILY 09/18/19 Haloperidol Lactate [Haldol] 5 mg IM MONTHLY 09/18/19 Ipratropium/Albuterol Sulfate [Combivent Respimat Inhal [place]] 1 gm IH QID 09/18 Latanoprost/Pf [Latanoprost 0.005% Eye Drop] 1 drop OU DAILY 09/18/19 Losartan Potassium [Cozaar] 100 mg PO DAILY 09/18/19 Metoprolol Succinate [Toprol Xl] 25 mg PO DAILY 09/18/19 Nifedipine ER [Procardia Xl -] 30 mg PO DAILY 09/18/19 Omeprazole Magnesium [Prilosec Otc] 20 mg PO DAILY 09/18/19 Risperidone [Risperdal] 1 mg PO BID 09/18/19 Simvastatin [Zocor -] 40 mg PO HS 09/18/19 Umeclidinium [place] [Incruse Ellipta] 1 puff IH DAILY 09/18/19 Vital Signs Period Temp Pulse Resp BP Sys/Cesar Pulse Ox Last 24 Hr 98.1 F-99.5 F 103-114 20-25 105-117/67-88 93-100 nad no jvd rrr s1s2 no mrg cta bl nl eff aao3 no jaundice diaphoresis pos dp pt no carotid bruits abd nt nd pos bs trace le edema, no c/c Laboratory Last Values WBC 14.6 K/mm3 (4.0-10.0) H 09/18/19 10:15 RBC 3.77 M/mm3 (4.00-5.60) L 09/18/19 10:15 Hgb 11.0 GM/dL (11.7-16.9) L 09/18/19 10:15 Hct 32.9 % (35.4-49) L 09/18/19 10:15 MCV 87.2 fl (80-96) 09/18/19 10:15 MCH 29.2 pg (25.7-33.7) 09/18/19 10:15 MCHC 33.5 g/dl (32.0-35.9) 09/18/19 10:15 RDW 14.3 % (11.9-15.9) 09/18/19 10:15 Plt Count 160 K/MM3 (134-434) D 09/18/19 10:15 MPV 7.1 fl (7.5-11.1) L D 09/18/19 10:15 Absolute Neuts (auto) 13.3 K/mm3 (1.5-8.0) H 09/18/19 10:15 Neutrophils % 90.8 % (42.8-82.8) H 09/18/19 10:15 Lymphocytes % 2.6 % (8-40) L 09/18/19 10:15 Monocytes % 6.3 % (3.8-10.2) 09/18/19 10:15 Eosinophils % 0.2 % (0-4.5) 09/18/19 10:15 Basophils % 0.1 % (0-2.0) 09/18/19 10:15 Nucleated RBC % 0 % (0-0) 09/18/19 10:15 PT with INR 19.50 SEC (9.7-13.0) H 09/18/19 10:15 INR 1.64 (0.83-1.09) H 09/18/19 10:15 Sodium 119 mmol/L (136-145) L 09/18/19 12:34 Potassium 5.0 mmol/L (3.5-5.1) 09/18/19 12:34 Chloride 85 mmol/L (98-107) L 09/18/19 12:34 Carbon Dioxide 24 mmol/L (21-32) 09/18/19 12:34 Anion Gap 10 MMOL/L (8-16) 09/18/19 12:34 BUN 19.4 mg/dL (7-18) H 09/18/19 12:34 Creatinine 1.0 mg/dL (0.55-1.3) 09/18/19 12:34 Est GFR (CKD-EPI)AfAm 89.23 09/18/19 12:34 Est GFR (CKD-EPI)NonAf 76.99 09/18/19 12:34 Random Glucose 109 mg/dL (74-106) H 09/18/19 12:34 Calcium 8.6 mg/dL (8.5-10.1) 09/18/19 12:34 Total Bilirubin 1.0 mg/dL (0.2-1) 09/18/19 10:15 AST 27 U/L (15-37) 09/18/19 10:15 ALT 27 U/L (13-61) 09/18/19 10:15 Alkaline Phosphatase 66 U/L (45-117) 09/18/19 10:15 Creatine Kinase 260 U/L (26-308) 09/18/19 10:15 Creatine Kinase Index 1.8 % (0.0-5.0) 09/18/19 10:15 CK-MB (CK-2) 4.8 ng/mL (0.5-3.6) H 09/18/19 10:15 Troponin I < 0.02 ng/ml (0.00-0.05) 09/18/19 10:15 B-Natriuretic Peptide 1009.1 pg/ml (5-125) H 09/18/19 10:15 Total Protein 7.4 g/dl (6.4-8.2) 09/18/19 10:15 Albumin 3.6 g/dl (3.4-5.0) 09/18/19 10:15 Urine Color Yellow 09/18/19 12:30 Urine Appearance Clear 09/18/19 12:30 Urine pH 7.0 (5.0-8.0) 09/18/19 12:30 Ur Specific [place] 1.004 (1.010-1.035) L 09/18/19 12:30 Urine Protein Negative (NEGATIVE) 09/18/19 12:30 Urine Glucose (UA) Negative (NEGATIVE) 09/18/19 12:30 Urine Ketones Negative (NEGATIVE) 09/18/19 12:30 Urine Blood Negative (NEGATIVE) 09/18/19 12:30 Urine Nitrite Negative (NEGATIVE) 09/18/19 12:30 Urine Bilirubin Negative (NEGATIVE) 09/18/19 12:30 Urine Urobilinogen 1.0 mg/dL (0.2-1.0) 09/18/19 12:30 Ur Leukocyte Esterase Negative (NEGATIVE) 09/18/19 12:30 Urine Osmolality 116 mosm/kg (300-900) L 09/18/19 12:30 Ur Random Sodium 14 MMOL/L (40-220) L 09/18/19 12:30 Influenza A (Rapid) Negative (Negative) 09/18/19 12:30 Influenza B (Rapid) Negative (Negative) 09/18/19 12:30 ecg: sr 108, nl intervals, no ischemic changes cxr: mild congestion, ?pna tele: sr a/p: 69 m hx schizophrenia, copd, afib with tachy/dora s/p ppm, cva, cad/mi with last cath 2008 with non obs dz, etoh abuse, smoker, here with sob. sob, chf: -no signs of acs. trop negx1. ecg w/o ischemic findings. would monitor on tele and continue to trend troponin. -appears to be have mild vol overload but also with severe hyponatremia. currently resp status is stable so will try to allow na to correct before diuresing and potentially worsening na. If develops resp distress then would give iv lasix 20 mg at that time. plan was d/w renal as well. -check echo afib: -has ppm for tachy/dora syndrome per charts -in sr currently -start toprol 25 bid (on toprol at home), monitor on tele, titrate up if needed for rate control -resume home eliquis -would hold off on amio for now given his psych meds that may may prolong qtc cad, remote mi: -no recent pci -no anginal sxs -no signs acs as above -cont statin, ac, bb etoh, tob use: -cessation discussed
--- NOTE | 2019-09-18 16:06 | ECHO ---
Name: ELMIRA HAZEL Exam:Adult Echocardiogram Study Date: 09/18/2019 03:24 PM Age: 69 yrs Height: 69 in Weight: 202 lb BSA: 2.1 m2 MMode/2D Measurements & Calculations IVSd: 0.81 cm Ao root diam: 4.4 cm LVIDd: 6.3 cm LA dimension: 4.5 cm LVIDs: 4.3 cm ACS: 2.6 cm LVPWd: 0.81 cm IVSs: 1.0 cm LVPWs: 1.3 cm EDV(Teich): 203.5 ml ESV(Teich): 83.8 ml Doppler Measurements & Calculations MV E max danny: 83.4 cm/sec Ao V2 max: 122.7 cm/sec MV A max danny: 41.0 cm/sec Ao max P.0 mmHg MV E/A: 2.0 AI P1/2t: 456.9 msec AI max danny: 394.2 cm/sec TR max danny: 180.0 cm/sec AI max P.2 mmHg TR max P.0 mmHg AI dec slope: 252.7 cm/sec2 PI end-d danny: 123.5 cm/sec Med Peak E' Danny: 7.7 cm/sec Med E/e': 10.9 Lat Peak E' Danny: 12.5 cm/sec Lat E/e': 6.7 Procedure The study was technically difficult with many images being suboptimal in quality. Left Ventricle The left ventricle is mildly dilated. Left ventricular systolic function is grossly normal. Ejection Fraction = 50%. Regional wall motion abnormalities cannot be excluded due to limited visualization. Right Ventricle There is a pacemaker lead in the right ventricle. The right ventricle is grossly normal size. The rig ht ventricular systolic function is grossly normal. Atria The left atrium is mildly dilated. Right atrial size is normal. Mitral Valve The mitral valve is grossly normal. There is no mitral valve stenosis. There is trace mitral regurgit ation. Tricuspid Valve The tricuspid valve is normal in structure and function. There is mild tricuspid regurgitation. Aortic Valve The aortic valve opens well. No hemodynamically significant valvular aortic stenosis. Mild aortic regurgitation. Pulmonic Valve The pulmonic valve is not well seen, but is grossly normal. There is no pulmonic valvular stenosis. M ild pulmonic valvular regurgitation. Great Vessels Mild aortic root dilatation. Pericardium/Pleura There is no pericardial effusion. Interpretation Summary The study was technically difficult with many images being suboptimal in quality. Regional wall motion abnormalities cannot be excluded due to limited visualization. Left ventricular systolic function is grossly normal. There is a pacemaker lead in the right ventricle. The left atrium is mildly dilated. There is mild tricuspid regurgitation. Mild aortic regurgitation. Mild aortic root dilatation. There is no pericardial effusion. MD Singh *Eliseo 09/18/2019 04:06 PM
--- NOTE | 2019-09-18 16:41 | PN ---
Teaching Attending Note Name of Resident: Evie García (Nephrology) ATTENDING PHYSICIAN STATEMENT I saw and evaluated the patient. I reviewed the resident's note and discussed the case with the resident. I agree with the resident's findings and plan as documented. Renal Pt is a 69 year old male with pmhx of schizophrenia, depression and htn who presents to the ER with shortness of breath. He was found to be hyponatremic and I was called to evaluate him. He drinks at least 3 of the 24 oz beer bottles per day. He denies chest pain. He denies nsaid use. He has history of hyponatremia. He says that he feels better with bipap. pmhx hyponatremia, schizophrenia, htn hle allergies pcn socialhx etoh abuse ros dyspnea Current Medications Generic Name Dose Route Start Last Admin Trade Name Freq PRN Reason Stop Dose Admin Amiodarone HCl 300 mg 09/18/19 16:30 Cordarone Injection - IVPUSH 09/18/19 16:31 ONCE ONE Apixaban 5 mg 09/19/19 10:00 Eliquis - PO BID ALYSA Atorvastatin Calcium 80 mg 09/18/19 22:00 Lipitor - PO HS ALYSA Metoprolol Succinate 25 mg 09/18/19 22:00 Toprol Xl - PO BID ALYSA Laboratory Tests 09/18/19 09/18/19 09/18/19 10:15 10:15 10:15 WBC 14.6 H Hgb 11.0 L PT with INR 19.50 H INR 1.64 H Sodium 116 L* Creatinine Troponin I < 0.02 B-Natriuretic Peptide 1009.1 H Ur Specific [place] Urine Osmolality Ur Random Sodium 09/18/19 09/18/19 09/18/19 12:30 12:30 12:30 WBC Hgb PT with INR INR Sodium Creatinine Troponin I B-Natriuretic Peptide Ur Specific [place] 1.004 L Urine Osmolality 116 L Ur Random Sodium 14 L 09/18/19 09/18/19 12:34 15:44 WBC Hgb PT with INR INR Sodium 119 L Pending Creatinine 1.0 Troponin I Pending B-Natriuretic Peptide Ur Specific [place] Urine Osmolality Ur Random Sodium Last Vital Signs Temp Pulse Resp BP Pulse Ox 99.5 F 114 H 21 H 105/67 97 09/18/19 12:46 09/18/19 15:47 09/18/19 15:47 09/18/19 15:47 09/18/19 15:59 cxr congestive changes cardio s1s2 pulm rhonchi, on bipap gi soft ext trace edema neuro awake skin neg rash circ pols pulses Impression 1. hyponatremia 2. schizophrenia 3. depression 4. congestion on cxr with elevated bnp 5. r/o chf - echo pending, decrease wall motion on bedside echo in er 6. etoh abuse 7. a-fib Plan - pt has now sg and low osm and is in turn making dilute urine - follow repeat sodium - pt is mildly hypervolemic and if his resp status does not improve can give lasix, 20 mg - restrict free water - admit to monitored setting - monitor for withdrawl - discussed with medical insurance claims processor - follow echo - discussed with cardio
[2019-09-18] MEDS ORDERED: AMIODARONE HCL 150 MG/3 ML VIAL IVPB ONE (17:00)
[2019-09-18] MEDS ORDERED: ASPIRIN 325 MG ENTERIC COATED TABLET (FP) ONE (17:37)
[2019-09-18] MEDS ORDERED: CLOPIDOGREL BISULFATE 300 MG TABLET ONE (17:38)
[2019-09-18 19:35] LABS: POTASSIUM 4.5 mmol/L (3.5-5.1)
[2019-09-18 19:36] LABS: BLOOD UREA NITROGEN 18.6 mg/dL (7-18); CALCIUM 9.1 mg/dL (8.5-10.1); CREATININE 1.2 mg/dL (0.55-1.3)
--- NOTE | 2019-09-18 19:38 | PN ---
Progress Note (short form) - Note Progress Note: Laboratory Tests 09/18/19 16:30 Sodium 122 L Potassium 4.5 pt autocorrecting, cont to observe restrict free water
[2019-09-18] MEDS ORDERED: ATORVASTATIN CA 80 MG TABLET (FP) PO SCH (22:00)
[2019-09-18] MEDS ORDERED: PATIENT'S OWN MEDICATION (NON-FORMULARY) (Simvastatin 40 MG) PO SCH (22:00)
[2019-09-19] MEDS: CARBIDOPA/LEVODOPA 10/100 TABLET (FP) PO SCH ×3 (00:07→22:32)
[2019-09-19] MEDS: LATANOPROST 0.005% OPHTH SOLN 2.5ML BOTTLE OU SCH ×2 (00:07→22:32)
[2019-09-19] MEDS: metoPROLOL SUCCINATE 25 MG TAB.SR.24H (FP) PO SCH ×3 (00:07→22:32)
[2019-09-19] MEDS: risperiDONE 1 MG TABLET PO SCH ×3 (00:07→22:32)
[2019-09-19] MEDS: ATORVASTATIN CA 20 MG TABLET (FP) PO SCH ×2 (00:07→22:32)
[2019-09-19 01:18] VITALS: BMI 29.5
[2019-09-19 07:45] LABS: BASO % 0.2 % (0-2.0); HEMATOCRIT 32.8 % (35.4-49); HEMOGLOBIN 10.8 GM/dL (11.7-16.9); LYMPH % 2.3 % (8-40); MCH 28.7 pg (25.7-33.7); MCHC 32.9 g/dl (32.0-35.9); MEAN CELL VOLUME 87.2 fl (80-96); MEAN PLT VOLUME 7.8 fl (7.5-11.1); MONO % 5.7 % (3.8-10.2); NEUT % 91.8 % (42.8-82.8); PLATELET COUNT 151 K/MM3 (134-434); RBC 3.76 M/mm3 (4.00-5.60); RDW 14.5 % (11.9-15.9)
[2019-09-19 08:36] LABS: ALBUMIN 3.5 g/dl (3.4-5.0); BILIRUBIN,TOTAL 0.9 mg/dL (0.2-1); BLOOD UREA NITROGEN 14.6 mg/dL (7-18); CREATININE 0.9 mg/dL (0.55-1.3); MAGNESIUM 2.3 mg/dL (1.8-2.4); PHOSPHOROUS 3.5 mg/dL (2.5-4.9); POTASSIUM 4.4 mmol/L (3.5-5.1); TOT PROT 7.3 g/dl (6.4-8.2)
[2019-09-19] MEDS ORDERED: LOSARTAN POTASSIUM 50 MG TABLET (FP) PO SCH (10:00)
[2019-09-19] MEDS ORDERED: PATIENT'S OWN MEDICATION (NON-FORMULARY) (Losartan Potassium [Cozaar] 100 MG) PO SCH (10:00)
[2019-09-19] MEDS ORDERED: PATIENT'S OWN MEDICATION (NON-FORMULARY) (Omeprazole Magnesium [Prilosec Otc] 20 MG) PO SCH (10:00)
[2019-09-19] MEDS ORDERED: PATIENT'S OWN MEDICATION (NON-FORMULARY) (Latanoprost/Pf [Latanoprost 0.005% Eye Drop] 1 D OU SCH (10:00)
[2019-09-19] MEDS ORDERED: PATIENT'S OWN MEDICATION (NON-FORMULARY) (Ferrous Sulfate [Ferrous Sulfate] 325 MG) PO SCH (10:00)
[2019-09-19] MEDS: CITALOPRAM HYDROBROMIDE 20 MG TABLET PO SCH (10:01)
[2019-09-19] MEDS: APIXABAN 5 MG TABLET PO SCH ×2 (10:01→22:32)
[2019-09-19] MEDS: FERROUS SO4 325 MG TABLET (FP) PO SCH (10:01)
[2019-09-19] MEDS: THIAMINE HCL 100 MG TABLET (FP) PO SCH (10:01)
[2019-09-19] MEDS: FOLIC ACID 1 MG TABLET (FP) PO SCH (10:01)
[2019-09-19] MEDS: PANTOPRAZOLE 20 MG TABLET PO SCH (10:02)
[2019-09-19] MEDS ORDERED: PT OWN MED DRAWER 7, Y5N ONE (10:05)
[2019-09-19] MEDS: FLUTICASONE PROP 0.05% 16 GM NASAL SPRAY NS SCH (11:07)
[2019-09-19] MEDS: TIOTROPIUM BROMIDE 2.5 MCG (SPIRIVA) RESPIMAT INHALER IH SCH (11:08)
[2019-09-19] MEDS: AMANTADINE HCL 100 MG TABLET PO SCH (11:09)
--- NOTE | 2019-09-19 12:02 | PN ---
Progress Note (short form) - Note Progress Note: s: no cp sob palps dizzy Current Medications Generic Name Dose Route Start Last Admin Trade Name Freq PRN Reason Stop Dose Admin Amantadine HCl 100 mg 09/19/19 10:00 09/19/19 11:09 Symmetrel - PO 100 mg DAILY ALYSA Administration Apixaban 5 mg 09/19/19 10:00 09/19/19 10:01 Eliquis - PO 5 mg BID ALYSA Administration Atorvastatin Calcium 20 mg 09/18/19 22:00 09/19/19 00:07 Lipitor - PO 20 mg HS ALYSA Administration Carbidopa/Levodopa 1 each 09/18/19 22:00 09/19/19 10:03 Sinemet 10/100 - PO 1 each BID ALYSA Administration Citalopram Hydrobromide 20 mg 09/19/19 10:00 09/19/19 10:01 Celexa - PO 20 mg DAILY ALYSA Administration Ferrous Sulfate 325 mg 09/19/19 10:00 09/19/19 10:01 Feosol - PO 325 mg DAILY ALYSA Administration Fluticasone Propionate 2 spray 09/19/19 10:00 09/19/19 11:07 Flonase - NS 2 sprays DAILY ALYSA Administration Folic Acid 1 mg 09/19/19 10:00 09/19/19 10:01 Folic Acid - PO 1 mg DAILY ALYSA Administration Latanoprost 1 drop 09/18/19 22:00 09/19/19 00:07 Xalatan 0.005% Eye Drops - OU 1 drop HS ALYSA Administration Losartan Potassium 100 mg 09/19/19 10:00 09/19/19 10:03 Cozaar - PO Not Given DAILY ALYSA Metoprolol Succinate 25 mg 09/18/19 22:00 09/19/19 10:03 Toprol Xl - PO 25 mg BID ALYSA Administration Pantoprazole Sodium 20 mg 09/19/19 10:00 09/19/19 10:02 Protonix - PO 20 mg DAILY ALYSA Administration Pneumococcal 13-Valent Conj Vacc 0.5 ml 09/19/19 13:00 Prevnar 13 Syringe - IM 09/19/19 13:01 .ONCE ONE Risperidone 1 mg 09/18/19 22:00 09/19/19 10:01 Risperdal - PO 1 mg BID ALYSA Administration Thiamine HCl 100 mg 09/19/19 10:00 09/19/19 10:01 Vitamin B1 - PO 100 mg DAILY ALYSA Administration Tiotropium [place] 2 puff 09/19/19 10:00 09/19/19 11:08 Spiriva Respimat IH 2 puff DAILY ALYSA Administration Vital Signs Period Temp Pulse Resp BP Sys/Cesar Pulse Ox Last 24 Hr 97.8 F-99.5 F 103-116 14-24 84-124/57-85 93-100 nad no jvd rrr s1s2 no mrg cta bl nl eff aao3 no jaundice diaphoresis pos dp pt no carotid bruits abd nt nd pos bs no le edema CBC, BMP 09/19/19 06:18 09/19/19 06:18 ecg: sr 108, nl intervals, no ischemic changes cxr: mild congestion, ?pna tele: sr a/p: 69 m hx schizophrenia, copd, afib with tachy/dora s/p ppm, cva, cad/mi with last cath 2008 with non obs dz, etoh abuse, smoker, here with sob. sob, chf: -no signs of acs. trop negx2. ecg w/o ischemic findings. -appears to be have mild vol overload but also with severe hyponatremia. currently resp status is stable so will try to allow na to correct before diuresing and potentially worsening na. Today na improving. -check echo afib: -has ppm for tachy/dora syndrome per charts -in sr currently -cont toprol, monitor on tele -resume home eliquis cad, remote mi: -no recent pci -no anginal sxs -no signs acs as above -cont statin, ac, bb etoh, tob use: -cessation discussed
--- NOTE | 2019-09-19 12:09 | PN ---
Progress Note, Physician History of Present Illness: Patient seen and examined at bedside sodium continues to correct on its own with free water restriction. today Na is 125 up from 122 yesterday He states he is feeling better today and continues to improve from a respiratory standpoint. He denies nausea vomiting fever chills chest pain urinary or GI symptoms. WBC count jumped up to 24k from 14.6k likely from steroids received yesterday. medrol discontinued since then. Remains afebrile. - Current Medication List Current Medications: Active Medications Amantadine HCl (Symmetrel -) 100 mg PO DAILY [facility] Last Admin: 09/19/19 11:09 Dose: 100 mg Apixaban (Eliquis -) 5 mg PO BID [facility] Last Admin: 09/19/19 10:01 Dose: 5 mg Atorvastatin Calcium (Lipitor -) 20 mg PO HS [facility] Last Admin: 09/19/19 00:07 Dose: 20 mg Carbidopa/Levodopa (Sinemet 10/100 -) 1 each PO BID [facility] Last Admin: 09/19/19 10:03 Dose: 1 each Citalopram Hydrobromide (Celexa -) 20 mg PO DAILY [facility] Last Admin: 09/19/19 10:01 Dose: 20 mg Ferrous Sulfate (Feosol -) 325 mg PO DAILY [facility] Last Admin: 09/19/19 10:01 Dose: 325 mg Fluticasone Propionate (Flonase -) 2 spray NS DAILY [facility] Last Admin: 09/19/19 11:07 Dose: 2 sprays Folic Acid (Folic Acid -) 1 mg PO DAILY [facility] Last Admin: 09/19/19 10:01 Dose: 1 mg Latanoprost (Xalatan 0.005% Eye Drops -) 1 drop OU HS [facility] Last Admin: 09/19/19 00:07 Dose: 1 drop Losartan Potassium (Cozaar -) 100 mg PO DAILY [facility] Last Admin: 09/19/19 10:03 Dose: Not Given Metoprolol Succinate (Toprol Xl -) 25 mg PO BID [facility] Last Admin: 09/19/19 10:03 Dose: 25 mg Pantoprazole Sodium (Protonix -) 20 mg PO DAILY [facility] Last Admin: 09/19/19 10:02 Dose: 20 mg Pneumococcal 13-Valent Conj Vacc (Prevnar 13 Syringe -) 0.5 ml IM .ONCE ONE Stop: 09/19/19 13:01 Risperidone (Risperdal -) 1 mg PO BID [facility] Last Admin: 09/19/19 10:01 Dose: 1 mg Thiamine HCl (Vitamin B1 -) 100 mg PO DAILY [facility] Last Admin: 09/19/19 10:01 Dose: 100 mg Tiotropium [place] (Spiriva Respimat) 2 puff IH DAILY [facility] Last Admin: 09/19/19 11:08 Dose: 2 puff - Objective Vital Signs: Vital Signs Temperature 98.8 F 09/19/19 09:57 Pulse Rate 114 H 09/19/19 09:57 Respiratory Rate 19 09/19/19 09:57 Blood Pressure 84/69 L 09/19/19 09:57 O2 Sat by Pulse Oximetry (%) 97 09/19/19 08:10 Constitutional: Yes: Well Nourished, No Distress Eyes: Yes: EOM Intact HENT: Yes: Atraumatic Neck: Yes: Supple Cardiovascular: Yes: Tachycardia Respiratory: Yes: Wheezes (occasional scattered expiratory wheezing) Gastrointestinal: Yes: Soft, Hernia (large ventral hernia appreciated). No: Tenderness, Tenderness, Rebound Genitourinary: Yes: Other (no suprapubic tenderness) Edema: No Neurological: Yes: Alert Psychiatric: Yes: Alert Labs: CBC, BMP 09/19/19 06:18 09/19/19 06:18 INR, PTT INR 1.64 (0.83-1.09) H 09/18/19 10:15 - ....Imaging Other: Report Reviewed (Echo reviewed) Impression/Plan Impression/Plan: 69M with PMHx of schizophrenia, CAD, CABG (1964) AAA, PAfib/Aflutter, s/p recent PPM, ETOH abuse/dependence , chronic hyponatremia, presenting to the ED from [facility] because of worsening SOB over the past week with exertion found to have severely low sodium of 116 on admission. Shortness of breath/RUELAS no overt volume overload echo noted to have normal LVEF and LV dilation Occasional OVCs on tele cardiology consult appreciated- if in respiratory distress give 20mg IV lasix. possible Pneumonia-continue holding ABx off steroids afebrile monitor WBC count as it jumped up tp 24K from 14.6 likely from solumedrol which has been discontinued hx of Afib/Aflutter Toprol Xl 25mg po BID-cant titrate up due to borderline hypotension continue apixiban Severe hyponatremia improving/self correcting with free water restriction f/u nephrology Na 125 today continue to trend BMP Iron Deficiency anemia continue home dose of iron CAD continue statin continue beta lexy continue Losartan Etoh abuse monitor for withdrawals Psych continue risperdal continue celexa continue sinimet-denies history of parkinsons continue amantadine for extrapyramidal symptom avoidance dvt ppx on eliquis Visit type - Emergency Visit Emergency Visit: Yes ED Registration Date: 09/18/19 Care time: The patient presented to the Emergency Department on the above date and was hospitalized for further evaluation of their emergent condition. - New Patient This patient is new to me today: Yes Date on this admission: 09/19/19 - Critical Care Critical Care patient: No
[2019-09-19] MEDS ORDERED: PNEUMOC 13-VAL CONJ-DIP CRM/PF 0.5 ML DISP.SYRIN IM ONE (13:00)
--- NOTE | 2019-09-19 13:15 | EKG ---
Test Reason : Blood Pressure : / mmHG Vent. Rate : 116 BPM Atrial Rate : 232 BPM P-R Int : 000 ms QRS Dur : 080 ms QT Int : 336 ms P-R-T Axes : 062 007 049 degrees QTc Int : 467 ms ATRIAL FLUTTER WITH 2:1 A-V CONDUCTION ANTEROSEPTAL INFARCT (CITED ON OR BEFORE 18-SEP-2019) ABNORMAL ECG WHEN COMPARED WITH ECG OF 18-SEP-2019 09:22, ATRIAL FLUTTER HAS REPLACED SINUS RHYTHM Confirmed by FRAN CHRISTIANSON MD ([id number]) on 09/19/2019 1:15:29 PM Referred By: Confirmed By:FRAN CHRISTIANSON MD
[2019-09-19 14:36] LABS: ANISOCYTOSIS 1+; MACROCYTOSIS 0; OVALOCYTE 1+; PLATELET ESTIMATE DECREASED; TARGET CELLS 1+; TEAR DROP CELLS 1+
--- NOTE | 2019-09-19 17:41 | PN ---
Progress Note (short form) - Note Progress Note: 1. hyponatremia 2. schizophrenia 3. depression 4. congestion on cxr with elevated bnp 5. r/o chf - echo pending, decrease wall motion on bedside echo in er 6. etoh abuse 7. a-fib Current Medications Amantadine HCl (Symmetrel -) 100 mg PO DAILY [facility] Last Admin: 09/19/19 11:09 Dose: 100 mg Apixaban (Eliquis -) 5 mg PO BID [facility] Last Admin: 09/19/19 10:01 Dose: 5 mg Atorvastatin Calcium (Lipitor -) 20 mg PO HS [facility] Last Admin: 09/19/19 00:07 Dose: 20 mg Carbidopa/Levodopa (Sinemet 10/100 -) 1 each PO BID [facility] Last Admin: 09/19/19 10:03 Dose: 1 each Citalopram Hydrobromide (Celexa -) 20 mg PO DAILY [facility] Last Admin: 09/19/19 10:01 Dose: 20 mg Ferrous Sulfate (Feosol -) 325 mg PO DAILY [facility] Last Admin: 09/19/19 10:01 Dose: 325 mg Fluticasone Propionate (Flonase -) 2 spray NS DAILY [facility] Last Admin: 09/19/19 11:07 Dose: 2 sprays Folic Acid (Folic Acid -) 1 mg PO DAILY [facility] Last Admin: 09/19/19 10:01 Dose: 1 mg Latanoprost (Xalatan 0.005% Eye Drops -) 1 drop OU HS [facility] Last Admin: 09/19/19 00:07 Dose: 1 drop Losartan Potassium (Cozaar -) 100 mg PO DAILY [facility] Last Admin: 09/19/19 10:03 Dose: Not Given Metoprolol Succinate (Toprol Xl -) 25 mg PO BID [facility] Last Admin: 09/19/19 10:03 Dose: 25 mg Pantoprazole Sodium (Protonix -) 20 mg PO DAILY [facility] Last Admin: 09/19/19 10:02 Dose: 20 mg Risperidone (Risperdal -) 1 mg PO BID [facility] Last Admin: 09/19/19 10:01 Dose: 1 mg Thiamine HCl (Vitamin B1 -) 100 mg PO DAILY [facility] Last Admin: 09/19/19 10:01 Dose: 100 mg Tiotropium [place] (Spiriva Respimat) 2 puff IH DAILY [facility] Last Admin: 09/19/19 11:08 Dose: 2 puff Last Vital Signs Temp Pulse Resp BP Pulse Ox 98.4 F 102 H 21 H 104/88 97 09/19/19 14:25 09/19/19 14:25 09/19/19 14:25 09/19/19 14:25 09/19/19 08:10 CBC, BMP 09/19/19 06:18 09/19/19 06:18 Plan - pt has now sg and low osm and is in turn making dilute urine - follow repeat sodium - pt is mildly hypervolemic and if his resp status does not improve can give lasix, 20 mg - restrict free water - admit to monitored setting - monitor for withdrawl - discussed with medical claims assistant - follow echo - discussed with cardio
[2019-09-20 07:27] LABS: BASO % 0.2 % (0-2.0); EOS % 0.4 % (0-4.5); HEMATOCRIT 34.2 % (35.4-49); HEMOGLOBIN 11.3 GM/dL (11.7-16.9); LYMPH % 6.8 % (8-40); MCH 28.8 pg (25.7-33.7); MEAN CELL VOLUME 87.3 fl (80-96); MEAN PLT VOLUME 7.9 fl (7.5-11.1); MONO % 6.9 % (3.8-10.2); NEUT % 85.7 % (42.8-82.8); PLATELET COUNT 181 K/MM3 (134-434); RBC 3.92 M/mm3 (4.00-5.60); RDW 14.3 % (11.9-15.9); WHITE BLOOD COUNT 21.7 K/mm3 (4.0-10.0)
[2019-09-20 07:40] LABS: BLOOD UREA NITROGEN 21.6 mg/dL (7-18); CALCIUM 8.7 mg/dL (8.5-10.1); CREATININE 0.9 mg/dL (0.55-1.3); POTASSIUM 4.2 mmol/L (3.5-5.1)
[2019-09-20] MEDS: THIAMINE HCL 100 MG TABLET (FP) PO SCH (09:50)
[2019-09-20] MEDS: risperiDONE 1 MG TABLET PO SCH ×2 (09:50→21:38)
[2019-09-20] MEDS: CARBIDOPA/LEVODOPA 10/100 TABLET (FP) PO SCH ×2 (09:50→21:41)
[2019-09-20] MEDS: CITALOPRAM HYDROBROMIDE 20 MG TABLET PO SCH (09:50)
[2019-09-20] MEDS: APIXABAN 5 MG TABLET PO SCH ×2 (09:51→21:40)
[2019-09-20] MEDS: FERROUS SO4 325 MG TABLET (FP) PO SCH (09:51)
[2019-09-20] MEDS: LOSARTAN POTASSIUM 50 MG TABLET (FP) PO SCH (09:51)
[2019-09-20] MEDS: PANTOPRAZOLE 20 MG TABLET PO SCH (09:51)
[2019-09-20] MEDS: FLUTICASONE PROP 0.05% 16 GM NASAL SPRAY NS SCH (09:53)
[2019-09-20] MEDS: TIOTROPIUM BROMIDE 2.5 MCG (SPIRIVA) RESPIMAT INHALER IH SCH (09:53)
--- NOTE | 2019-09-20 09:54 | PN ---
Progress Note, Physician History of Present Illness: Patient seen and examined at bedside sodium continues to correct on its own with free water restriction. today Na is 126 up from 125 yesterday He states he is feeling better today and continues to improve from a respiratory standpoint. not using nasal cannula O2 as much at this point. He denies nausea vomiting fever chills chest pain urinary or GI symptoms. WBC count coming down to 21.7K today from 24K yesterday likely from steroids received 2 days ago. medrol discontinued since then. Remains afebrile. Sinus tachycardia on telemetry - Current Medication List Current Medications: Active Medications Amantadine HCl (Symmetrel -) 100 mg PO DAILY [facility] Last Admin: 09/19/19 11:09 Dose: 100 mg Apixaban (Eliquis -) 5 mg PO BID [facility] Last Admin: 09/19/19 22:32 Dose: 5 mg Atorvastatin Calcium (Lipitor -) 20 mg PO HS [facility] Last Admin: 09/19/19 22:32 Dose: 20 mg Carbidopa/Levodopa (Sinemet 10/100 -) 1 each PO BID [facility] Last Admin: 09/19/19 22:32 Dose: 1 each Citalopram Hydrobromide (Celexa -) 20 mg PO DAILY [facility] Last Admin: 09/19/19 10:01 Dose: 20 mg Ferrous Sulfate (Feosol -) 325 mg PO DAILY [facility] Last Admin: 09/19/19 10:01 Dose: 325 mg Fluticasone Propionate (Flonase -) 2 spray NS DAILY [facility] Last Admin: 09/19/19 11:07 Dose: 2 sprays Folic Acid (Folic Acid -) 1 mg PO DAILY [facility] Last Admin: 09/19/19 10:01 Dose: 1 mg Latanoprost (Xalatan 0.005% Eye Drops -) 1 drop OU HS [facility] Last Admin: 09/19/19 22:32 Dose: 1 drop Losartan Potassium (Cozaar -) 50 mg PO DAILY [facility] Metoprolol Succinate (Toprol Xl -) 50 mg PO BID [facility] Pantoprazole Sodium (Protonix -) 20 mg PO DAILY [facility] Last Admin: 09/19/19 10:02 Dose: 20 mg Risperidone (Risperdal -) 1 mg PO BID [facility] Last Admin: 09/19/19 22:32 Dose: 1 mg Thiamine HCl (Vitamin B1 -) 100 mg PO DAILY [facility] Last Admin: 09/19/19 10:01 Dose: 100 mg Tiotropium [place] (Spiriva Respimat) 2 puff IH DAILY [facility] Last Admin: 09/19/19 11:08 Dose: 2 puff - Objective Vital Signs: Vital Signs Temperature 98.2 F 09/20/19 01:28 Pulse Rate 110 H 09/20/19 05:42 Respiratory Rate 18 09/20/19 08:29 Blood Pressure 112/72 09/20/19 05:42 O2 Sat by Pulse Oximetry (%) 97 09/20/19 08:29 Constitutional: Yes: Well Nourished, No Distress Eyes: Yes: EOM Intact HENT: Yes: Atraumatic Neck: Yes: Supple Cardiovascular: Yes: Tachycardia Respiratory: Yes: (has bibasilar crackles but no wheezing today) Gastrointestinal: Yes: Soft, Hernia (large ventral hernia appreciated). No: Tenderness, Tenderness, Rebound Genitourinary: Yes: Other (no suprapubic tenderness) Edema: No Neurological: Yes: Alert Psychiatric: Yes: Alert Labs: CBC, BMP 09/20/19 06:17 09/20/19 06:17 INR, PTT INR 1.64 (0.83-1.09) H 09/18/19 10:15 Impression/Plan Impression/Plan: 69M with PMHx of schizophrenia, CAD, CABG (1964) AAA, PAfib/Aflutter, s/p recent PPM, ETOH abuse/dependence , chronic hyponatremia, presenting to the ED from [facility] because of worsening SOB over the past week with exertion found to have severely low sodium of 116 on admission. Shortness of breath/RUELAS no overt volume overload echo noted to have normal LVEF and LV dilation Occasional PVCs on tele cardiology consult appreciated- if in respiratory distress give 20mg IV lasix. possible Pneumonia-continue holding ABx off steroids afebrile monitor WBC count-down to 21.7K today from 24K yesterday from 14.6 likely from solumedrol which has been discontinued hx of Afib/Aflutter Needs better rate control Toprol Xl increased to 50mg po BID from 25mg po BID continue apixiban Severe hyponatremia improving/self correcting with free water restriction f/u nephrology Na 126 today continue to trend BMP Iron Deficiency anemia continue home dose of iron CAD continue statin continue beta lexy but increased metoprolol XL to 50mg BID from 25mg BID continue Losartan Etoh abuse monitor for withdrawals Psych continue risperdal continue celexa continue sinimet-patient denies history of parkinsons continue amantadine for extrapyramidal symptom avoidance dvt ppx on eliquis Visit type - Emergency Visit Emergency Visit: Yes ED Registration Date: 09/18/19 Care time: The patient presented to the Emergency Department on the above date and was hospitalized for further evaluation of their emergent condition. - New Patient This patient is new to me today: No - Critical Care Critical Care patient: No
[2019-09-20] MEDS ORDERED: PT OWN MED DRAWER 7, Y5N ONE (09:55)
[2019-09-20] MEDS: AMANTADINE HCL 100 MG TABLET PO SCH (09:56)
--- NOTE | 2019-09-20 10:27 | PN ---
Progress Note (short form) - Note Progress Note: s: no cp sob palps dizzy Current Medications Generic Name Dose Route Start Last Admin Trade Name Freq PRN Reason Stop Dose Admin Amantadine HCl 100 mg 09/19/19 10:00 09/20/19 09:56 Symmetrel - PO 100 mg DAILY [facility] Administration Apixaban 5 mg 09/19/19 10:00 09/20/19 09:51 Eliquis - PO 5 mg BID [facility] Administration Atorvastatin Calcium 20 mg 09/18/19 22:00 09/19/19 22:32 Lipitor - PO 20 mg HS [facility] Administration Carbidopa/Levodopa 1 each 09/18/19 22:00 09/20/19 09:50 Sinemet 10/100 - PO 1 each BID [facility] Administration Citalopram Hydrobromide 20 mg 09/19/19 10:00 09/20/19 09:50 Celexa - PO 20 mg DAILY [facility] Administration Ferrous Sulfate 325 mg 09/19/19 10:00 09/20/19 09:51 Feosol - PO 325 mg DAILY [facility] Administration Fluticasone Propionate 2 spray 09/19/19 10:00 09/20/19 09:53 Flonase - NS 2 sprays DAILY [facility] Administration Folic Acid 1 mg 09/19/19 10:00 09/19/19 10:01 Folic Acid - PO 1 mg DAILY [facility] Administration Latanoprost 1 drop 09/18/19 22:00 09/19/19 22:32 Xalatan 0.005% Eye Drops - OU 1 drop HS [facility] Administration Losartan Potassium 50 mg 09/20/19 08:10 09/20/19 09:51 Cozaar - PO 50 mg DAILY [facility] Administration Metoprolol Succinate 50 mg 09/20/19 08:09 09/20/19 09:51 Toprol Xl - PO 50 mg BID [facility] Administration Pantoprazole Sodium 20 mg 09/19/19 10:00 09/20/19 09:51 Protonix - PO 20 mg DAILY [facility] Administration Risperidone 1 mg 09/18/19 22:00 09/20/19 09:50 Risperdal - PO 1 mg BID [facility] Administration Thiamine HCl 100 mg 09/19/19 10:00 09/20/19 09:50 Vitamin B1 - PO 100 mg DAILY [facility] Administration Tiotropium [place] 2 puff 09/19/19 10:00 09/20/19 09:53 Spiriva Respimat IH 2 puff DAILY [facility] Administration Vital Signs Period Temp Pulse Resp BP Sys/Cesar Pulse Ox Last 24 Hr 98.2 F-98.4 F 102-118 18-21 104-134/72-88 97-98 nad no jvd rrr s1s2 no mrg cta bl nl eff aao3 no jaundice diaphoresis pos dp pt no carotid bruits abd nt nd pos bs no le edema CBC, BMP 09/20/19 06:17 09/20/19 06:17 ecg: sr 108, nl intervals, no ischemic changes cxr: mild congestion, ?pna tele: aflutter with variable avb, rvr at times to 130 a/p: 69 m hx schizophrenia, copd, afib/flutter with tachy/dora s/p ppm, cva, cad/mi with last cath 2008 with non obs dz, etoh abuse, smoker, here with sob. sob, chf: -no signs of acs. trop negx2. ecg w/o ischemic findings. -vol status appears stable w/o diuretic, continue to manage hyponatremia, has been improving. -check echo afib/flutter: -has ppm for tachy/dora syndrome per charts -here having aflutter with rvr at times, will increase toprol, cont tele -on eliquis cad, remote mi: -no recent pci -no anginal sxs -no signs acs -cont statin, ac, bb etoh, tob use: -cessation discussed htn: -will decrease losartan dose to allow for more bp room for bb for rate control. Monitor bp.
[2019-09-20] MEDS: FOLIC ACID 1 MG TABLET (FP) PO SCH (10:30)
[2019-09-20 12:55] LABS: ANISOCYTOSIS 1+; MACROCYTOSIS 0; PLATELET ESTIMATE NORMAL; TARGET CELLS 1+; TEAR DROP CELLS 1+
[2019-09-20 17:38] LABS: BLOOD UREA NITROGEN 20.8 mg/dL (7-18); CALCIUM 8.9 mg/dL (8.5-10.1); POTASSIUM 4.2 mmol/L (3.5-5.1)
--- NOTE | 2019-09-20 20:23 | PN ---
Progress Note (short form) - Note Progress Note: 1. hyponatremia 2. schizophrenia 3. depression 4. congestion on cxr with elevated bnp 5. r/o chf - echo pending, decrease wall motion on bedside echo in er 6. etoh abuse 7. a-fib Current Medications Amantadine HCl (Symmetrel -) 100 mg PO DAILY [facility] Last Admin: 09/20/19 09:56 Dose: 100 mg Apixaban (Eliquis -) 5 mg PO BID [facility] Last Admin: 09/20/19 09:51 Dose: 5 mg Atorvastatin Calcium (Lipitor -) 20 mg PO HS [facility] Last Admin: 09/19/19 22:32 Dose: 20 mg Carbidopa/Levodopa (Sinemet 10/100 -) 1 each PO BID [facility] Last Admin: 09/20/19 09:50 Dose: 1 each Citalopram Hydrobromide (Celexa -) 20 mg PO DAILY [facility] Last Admin: 09/20/19 09:50 Dose: 20 mg Ferrous Sulfate (Feosol -) 325 mg PO DAILY [facility] Last Admin: 09/20/19 09:51 Dose: 325 mg Fluticasone Propionate (Flonase -) 2 spray NS DAILY [facility] Last Admin: 09/20/19 09:53 Dose: 2 sprays Folic Acid (Folic Acid -) 1 mg PO DAILY [facility] Last Admin: 09/20/19 10:30 Dose: 1 mg Latanoprost (Xalatan 0.005% Eye Drops -) 1 drop OU HS [facility] Last Admin: 09/19/19 22:32 Dose: 1 drop Losartan Potassium (Cozaar -) 50 mg PO DAILY [facility] Last Admin: 09/20/19 09:51 Dose: 50 mg Metoprolol Succinate (Toprol Xl -) 50 mg PO BID [facility] Last Admin: 09/20/19 09:51 Dose: 50 mg Pantoprazole Sodium (Protonix -) 20 mg PO DAILY [facility] Last Admin: 09/20/19 09:51 Dose: 20 mg Risperidone (Risperdal -) 1 mg PO BID [facility] Last Admin: 09/20/19 09:50 Dose: 1 mg Thiamine HCl (Vitamin B1 -) 100 mg PO DAILY [facility] Last Admin: 09/20/19 09:50 Dose: 100 mg Tiotropium [place] (Spiriva Respimat) 2 puff IH DAILY [facility] Last Admin: 09/20/19 09:53 Dose: 2 puff Last Vital Signs Temp Pulse Resp BP Pulse Ox 98.5 F 131 H 20 150/93 97 09/20/19 18:00 09/20/19 18:00 09/20/19 18:00 09/20/19 18:00 09/20/19 08:29 CBC, BMP 09/20/19 06:17 09/20/19 16:17 CBC, BMP 09/19/19 06:18 09/19/19 06:18 IMP- Hyponatremia - serum sodium is trending in good direction No sign of fluid overload Plan continue current tx monitor labs
[2019-09-20] MEDS: ATORVASTATIN CA 20 MG TABLET (FP) PO SCH (21:38)
[2019-09-20] MEDS: LATANOPROST 0.005% OPHTH SOLN 2.5ML BOTTLE OU SCH (21:40)
[2019-09-21 07:16] LABS: BASO % 0.3 % (0-2.0); EOS % 0.6 % (0-4.5); HEMATOCRIT 33.7 % (35.4-49); HEMOGLOBIN 11.3 GM/dL (11.7-16.9); LYMPH % 8.6 % (8-40); MCH 29.1 pg (25.7-33.7); MCHC 33.4 g/dl (32.0-35.9); MEAN CELL VOLUME 87.1 fl (80-96); MONO % 11.1 % (3.8-10.2); NEUT % 79.4 % (42.8-82.8); PLATELET COUNT 191 K/MM3 (134-434); RBC 3.87 M/mm3 (4.00-5.60); RDW 14.2 % (11.9-15.9); WHITE BLOOD COUNT 16.2 K/mm3 (4.0-10.0)
--- NOTE | 2019-09-21 08:08 | PN ---
Teaching Attending Note Name of Resident: Radha Ramsey ATTENDING PHYSICIAN STATEMENT I saw and evaluated the patient. I reviewed the resident's note and discussed the case with the resident. I agree with the resident's findings and plan as documented. SUBJECTIVE: Comfortably sitting OBJECTIVE: Vital Signs Temperature 99.3 F 09/21/19 01:57 Pulse Rate 119 H 09/21/19 06:00 Respiratory Rate 09/21/19 06:00 Blood Pressure 140/73 09/21/19 06:00 O2 Sat by Pulse Oximetry (%) 97 09/20/19 08:29 General: Elderly man, comfortable, not in distress HEENT; mucous membranes moist, no anemia, no jaundice, PERRLA, no nystagmus Neck: No JVD, supple, no bruit, thyroid palpably normal, normal carotid pulsations. Chest: Nontender, bilateral basal rales. CVS: S1-S2 irregular no murmur/gallop/rub Abdomen: Nondistended, soft, bowel sounds present. 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 , no gross motor sensory deficit CBC, BMP 09/21/19 05:10 09/20/19 16:17 Active Medications Amantadine HCl (Symmetrel -) 100 mg PO DAILY [facility] Last Admin: 09/20/19 09:56 Dose: 100 mg Apixaban (Eliquis -) 5 mg PO BID [facility] Last Admin: 09/20/19 21:40 Dose: 5 mg Atorvastatin Calcium (Lipitor -) 20 mg PO HS [facility] Last Admin: 09/20/19 21:38 Dose: 20 mg Carbidopa/Levodopa (Sinemet 10/100 -) 1 each PO BID [facility] Last Admin: 09/20/19 21:41 Dose: 1 each Citalopram Hydrobromide (Celexa -) 20 mg PO DAILY [facility] Last Admin: 09/20/19 09:50 Dose: 20 mg Ferrous Sulfate (Feosol -) 325 mg PO DAILY [facility] Last Admin: 09/20/19 09:51 Dose: 325 mg Fluticasone Propionate (Flonase -) 2 spray NS DAILY [facility] Last Admin: 09/20/19 09:53 Dose: 2 sprays Folic Acid (Folic Acid -) 1 mg PO DAILY [facility] Last Admin: 09/20/19 10:30 Dose: 1 mg Latanoprost (Xalatan 0.005% Eye Drops -) 1 drop OU HS [facility] Last Admin: 09/20/19 21:40 Dose: 1 drop Losartan Potassium (Cozaar -) 50 mg PO DAILY [facility] Last Admin: 09/20/19 09:51 Dose: 50 mg Metoprolol Succinate (Toprol Xl -) 50 mg PO BID [facility] Last Admin: 09/20/19 21:38 Dose: 50 mg Pantoprazole Sodium (Protonix -) 20 mg PO DAILY [facility] Last Admin: 09/20/19 09:51 Dose: 20 mg Risperidone (Risperdal -) 1 mg PO BID [facility] Last Admin: 09/20/19 21:38 Dose: 1 mg Thiamine HCl (Vitamin B1 -) 100 mg PO DAILY [facility] Last Admin: 09/20/19 09:50 Dose: 100 mg Tiotropium [place] (Spiriva Respimat) 2 puff IH DAILY [facility] Last Admin: 09/20/19 09:53 Dose: 2 puff Echocardiogram: Normal echo ASSESSMENT AND PLAN:69 y.o male with PMHx of schizophrenia, CADs/p CABG AAA, PAfib/Aflutter, s/p recent PPM, ETOH abuse (3-24oz a day) dependence , chronic hyponatremia, presenting to the ED from [facility] because of worsening SOB over the past week with exertion Impression: CHF exacerbation. A. fib/flutter with RVR Problem List - Problems (1) CHF exacerbation Assessment/Plan: Patient presents with decompensated diastolic heart failure in the setting of A. fib with RVR, continue Lasix, echo shows normal ejection fraction, rate controlled, will follow cardiology recommendations continue anticoagulation Code(s): I50.9 - HEART FAILURE, UNSPECIFIED (2) Hyponatremia Assessment/Plan: Chronic hyponatremia asymptomatic most likely due to psych medication will observe at present patient sodium is 126 will continue free water restriction and Lasix. Code(s): E87.1 - HYPO-OSMOLALITY AND HYPONATREMIA (3) CAD (coronary artery disease) Assessment/Plan: Stable not in acute distress denies any chest pain no acute ST-T changes troponins are normal. Problems reviewed: Yes Code(s): I25.10 - ATHSCL HEART DISEASE OF [place] CORONARY ARTERY W/O ANG PCTRS (4) Atrial fibrillation Assessment/Plan: Atrial fibrillation/flutter with rapid ventricular rate continue anticoagulation will optimize heart rate control as per cardiology recommendations. Problems reviewed: Yes Code(s): I48.91 - UNSPECIFIED ATRIAL FIBRILLATION (5) ETOH abuse Assessment/Plan: Recovering from EtOH withdrawal continue Librium, follow-up electrolytes and seizure precautions. Problems reviewed: Yes Code(s): F10.10 - ALCOHOL ABUSE, UNCOMPLICATED (6) Hypercholesteremia Assessment/Plan: Continue statin Problems reviewed: Yes Code(s): E78.0 - PURE HYPERCHOLESTEROLEMIA * DO NOT USE * (7) Hypertension Assessment/Plan: Well-controlled continue all home medications Problems reviewed: Yes Code(s): I10 - ESSENTIAL (PRIMARY) HYPERTENSION Qualifiers: Hypertension type: essential hypertension Qualified Code(s): I10 - Essential (primary) hypertension (8) Schizophrenia Assessment/Plan: Continue all home medication at present comfortable not in acute agitation denies any suicidal homicidal ideation. Problems reviewed: Yes Code(s): F20.9 - SCHIZOPHRENIA, UNSPECIFIED (9) COPD (chronic obstructive pulmonary disease) Assessment/Plan: Chronic continue all home medications. Problems reviewed: Yes Code(s): J44.9 - CHRONIC OBSTRUCTIVE PULMONARY DISEASE, UNSPECIFIED
[2019-09-21] MEDS ORDERED: PT OWN MED DRAWER 7, Y5N ONE ×2 (08:24→09:33)
[2019-09-21 09:02] LABS: ALBUMIN 3.2 g/dl (3.4-5.0); BILIRUBIN,TOTAL 0.9 mg/dL (0.2-1); CALCIUM 8.5 mg/dL (8.5-10.1); CREATININE 0.9 mg/dL (0.55-1.3); TOT PROT 6.9 g/dl (6.4-8.2)
[2019-09-21] MEDS: APIXABAN 5 MG TABLET PO SCH ×2 (09:34→22:28)
[2019-09-21] MEDS: CARBIDOPA/LEVODOPA 10/100 TABLET (FP) PO SCH ×2 (09:34→22:29)
[2019-09-21] MEDS: risperiDONE 1 MG TABLET PO SCH ×2 (09:34→22:28)
[2019-09-21] MEDS: CITALOPRAM HYDROBROMIDE 20 MG TABLET PO SCH (09:34)
[2019-09-21] MEDS: FERROUS SO4 325 MG TABLET (FP) PO SCH (09:34)
[2019-09-21] MEDS: PANTOPRAZOLE 20 MG TABLET PO SCH (09:34)
[2019-09-21] MEDS: FOLIC ACID 1 MG TABLET (FP) PO SCH (09:34)
[2019-09-21] MEDS: AMANTADINE HCL 100 MG TABLET PO SCH (09:35)
[2019-09-21] MEDS: LOSARTAN POTASSIUM 50 MG TABLET (FP) PO SCH (09:35)
[2019-09-21] MEDS: THIAMINE HCL 100 MG TABLET (FP) PO SCH (09:35)
[2019-09-21] MEDS: FLUTICASONE PROP 0.05% 16 GM NASAL SPRAY NS SCH (09:36)
[2019-09-21] MEDS: TIOTROPIUM BROMIDE 2.5 MCG (SPIRIVA) RESPIMAT INHALER IH SCH (09:36)
--- NOTE | 2019-09-21 10:50 | PN ---
Progress Note (short form) - Note Progress Note: s: no cp sob palps dizzy Current Medications Generic Name Dose Route Start Last Admin Trade Name Freq PRN Reason Stop Dose Admin Amantadine HCl 100 mg 09/19/19 10:00 09/21/19 09:35 Symmetrel - PO 100 mg DAILY ALYSA Administration Apixaban 5 mg 09/19/19 10:00 09/21/19 09:34 Eliquis - PO 5 mg BID ALYSA Administration Atorvastatin Calcium 20 mg 09/18/19 22:00 09/20/19 21:38 Lipitor - PO 20 mg HS ALYSA Administration Carbidopa/Levodopa 1 each 09/18/19 22:00 09/21/19 09:34 Sinemet 10/100 - PO 1 each BID ALYSA Administration Citalopram Hydrobromide 20 mg 09/19/19 10:00 09/21/19 09:34 Celexa - PO 20 mg DAILY ALYSA Administration Diltiazem HCl 120 mg 09/21/19 10:00 09/21/19 09:34 Cardizem Cd - PO 120 mg DAILY ALYSA Administration Ferrous Sulfate 325 mg 09/19/19 10:00 09/21/19 09:34 Feosol - PO 325 mg DAILY ALYSA Administration Fluticasone Propionate 2 spray 09/19/19 10:00 09/21/19 09:36 Flonase - NS 2 sprays DAILY ALYSA Administration Folic Acid 1 mg 09/19/19 10:00 09/21/19 09:34 Folic Acid - PO 1 mg DAILY ALYSA Administration Latanoprost 1 drop 09/18/19 22:00 09/20/19 21:40 Xalatan 0.005% Eye Drops - OU 1 drop HS ALYSA Administration Losartan Potassium 50 mg 09/20/19 08:10 09/21/19 09:35 Cozaar - PO 50 mg DAILY ALYSA Administration Metoprolol Succinate 50 mg 09/20/19 08:09 09/21/19 09:34 Toprol Xl - PO 50 mg BID ALYSA Administration Pantoprazole Sodium 20 mg 09/19/19 10:00 09/21/19 09:34 Protonix - PO 20 mg DAILY ALYSA Administration Risperidone 1 mg 09/18/19 22:00 09/21/19 09:34 Risperdal - PO 1 mg BID ALYSA Administration Thiamine HCl 100 mg 09/19/19 10:00 09/21/19 09:35 Vitamin B1 - PO 100 mg DAILY ALYSA Administration Tiotropium [place] 2 puff 09/19/19 10:00 09/21/19 09:36 Spiriva Respimat IH 2 puff DAILY ALYSA Administration Vital Signs Period Temp Pulse Resp BP Sys/Cesar Pulse Ox Last 24 Hr 98 F-99.8 F 119-131 20-20 117-150/66-102 nad no jvd rrr s1s2 no mrg cta bl nl eff aao3 no jaundice diaphoresis pos dp pt no carotid bruits abd nt nd pos bs no le edema CBC, BMP 09/21/19 05:10 09/21/19 05:23 ecg: sr 108, nl intervals, no ischemic changes cxr: mild congestion, ?pna tele: aflutter with variable avb, rvr at times to 130 a/p: 69 m hx schizophrenia, copd, afib/flutter with tachy/dora s/p ppm, cva, cad/mi with last cath 2008 with non obs dz, etoh abuse, smoker, here with sob. sob, chf: -no signs of acs. trop negx2. ecg w/o ischemic findings. -vol status appears stable w/o diuretic, continue to manage hyponatremia, has been improving. -check echo afib/flutter: -has ppm for tachy/dora syndrome per charts -here having aflutter with rvr at times, cont toprol, will add dilt as well, cont tele -on eliquis cad, remote mi: -no recent pci -no anginal sxs -no signs acs -cont statin, ac, bb etoh, tob use: -cessation discussed htn: -stable
--- NOTE | 2019-09-21 11:53 | PN ---
Physical Exam: SUBJECTIVE: Patient seen and examined. No events overnight. no complaints, denies sob, chest pain, palpitations. rate not controlled. OBJECTIVE: Vital Signs Period Temp Pulse Resp BP Sys/Cesar Pulse Ox Last 24 Hr 98 F-99.8 F 119-131 -20 117-150/66-102 GENERAL: a/o x 3, in NAD EYES: PEERLA: EOMI: no scleral icterus NECK: no JVD; no lymphadenopathy LUNGS: bibasilar crackles HEART: Regular rate and rhythm, normal S1 and S2 without murmur, rub or gallop. ABDOMEN: Soft, nt, nd, +abdominal hernia EXTREMITIES: warm; trace LE edema b/l Laboratory Results - last 24 hr 09/20/19 09/20/19 09/21/19 06:17 16:17 05:10 WBC 16.2 H RBC 3.87 L Hgb 11.3 L Hct 33.7 L MCV 87.1 MCH 29.1 MCHC 33.4 RDW 14.2 Plt Count 191 MPV 8.0 Absolute Neuts (auto) 12.8 H Neutrophils % 79.4 Neutrophils % (Manual) 74.0 Band Neutrophils % 4.0 Lymphocytes % 8.6 D Lymphocytes % (Manual) 8.0 D Monocytes % 11.1 H Monocytes % (Manual) 6 Eosinophils % 0.6 Eosinophils % (Manual) 0.0 Basophils % 0.3 Basophils % (Manual) 0.0 Myelocytes % (Man) 0 Promyelocytes % (Man) 0 Blast Cells % (Manual) 0 Nucleated RBC % 0 0 Metamyelocytes 0 D Hypochromia 0 Platelet Estimate Normal Platelet Comment Present Polychromasia 0 Poikilocytosis 1+ Anisocytosis 1+ Microcytosis 2+ Macrocytosis 0 Spherocytes 1+ Target Cells 1+ Tear Drop Cells 1+ Elba Cells 1+ Acanthocytes (Spur) 1+ Schistocytes 1+ Sodium 126 L Potassium 4.2 Chloride 91 L Carbon Dioxide 24 Anion Gap 11 BUN 20.8 H Creatinine 1.0 Est GFR (CKD-EPI)AfAm 89.23 Est GFR (CKD-EPI)NonAf 76.99 Random Glucose 95 Calcium 8.9 Total Bilirubin AST ALT Alkaline Phosphatase Total Protein Albumin 09/21/19 05:23 WBC RBC Hgb Hct MCV MCH MCHC RDW Plt Count MPV Absolute Neuts (auto) Neutrophils % Neutrophils % (Manual) Band Neutrophils % Lymphocytes % Lymphocytes % (Manual) Monocytes % Monocytes % (Manual) Eosinophils % Eosinophils % (Manual) Basophils % Basophils % (Manual) Myelocytes % (Man) Promyelocytes % (Man) Blast Cells % (Manual) Nucleated RBC % Metamyelocytes Hypochromia Platelet Estimate Platelet Comment Polychromasia Poikilocytosis Anisocytosis Microcytosis Macrocytosis Spherocytes Target Cells Tear Drop Cells Elba Cells Acanthocytes (Spur) Schistocytes Sodium 126 L Potassium 4.0 Chloride 91 L Carbon Dioxide 26 Anion Gap 9 BUN 19.0 H Creatinine 0.9 Est GFR (CKD-EPI)AfAm 101.36 Est GFR (CKD-EPI)NonAf 87.45 Random Glucose 72 L Calcium 8.5 Total Bilirubin 0.9 AST 38 H ALT 42 Alkaline Phosphatase 79 Total Protein 6.9 Albumin 3.2 L Active Medications Generic Name Dose Route Start Last Admin Trade Name Freq PRN Reason Stop Dose Admin Amantadine HCl 100 mg 09/19/19 10:00 09/21/19 09:35 Symmetrel - PO 100 mg DAILY ALYSA Administration Apixaban 5 mg 09/19/19 10:00 09/21/19 09:34 Eliquis - PO 5 mg BID ALYSA Administration Atorvastatin Calcium 20 mg 09/18/19 22:00 09/20/19 21:38 Lipitor - PO 20 mg HS ALYSA Administration Carbidopa/Levodopa 1 each 09/18/19 22:00 09/21/19 09:34 Sinemet 10/100 - PO 1 each BID ALYSA Administration Citalopram Hydrobromide 20 mg 09/19/19 10:00 09/21/19 09:34 Celexa - PO 20 mg DAILY ALYSA Administration Diltiazem HCl 120 mg 09/21/19 10:00 09/21/19 09:34 Cardizem Cd - PO 120 mg DAILY ALYSA Administration Ferrous Sulfate 325 mg 09/19/19 10:00 09/21/19 09:34 Feosol - PO 325 mg DAILY ALYSA Administration Fluticasone Propionate 2 spray 09/19/19 10:00 09/21/19 09:36 Flonase - NS 2 sprays DAILY ALYSA Administration Folic Acid 1 mg 09/19/19 10:00 09/21/19 09:34 Folic Acid - PO 1 mg DAILY ALYSA Administration Latanoprost 1 drop 09/18/19 22:00 09/20/19 21:40 Xalatan 0.005% Eye Drops - OU 1 drop HS ALYSA Administration Losartan Potassium 50 mg 09/20/19 08:10 09/21/19 09:35 Cozaar - PO 50 mg DAILY ALYSA Administration Metoprolol Succinate 50 mg 09/20/19 08:09 09/21/19 09:34 Toprol Xl - PO 50 mg BID ALYSA Administration Pantoprazole Sodium 20 mg 09/19/19 10:00 09/21/19 09:34 Protonix - PO 20 mg DAILY ALYSA Administration Risperidone 1 mg 09/18/19 22:00 09/21/19 09:34 Risperdal - PO 1 mg BID ALYSA Administration Thiamine HCl 100 mg 09/19/19 10:00 09/21/19 09:35 Vitamin B1 - PO 100 mg DAILY ALYSA Administration Tiotropium [place] 2 puff 09/19/19 10:00 09/21/19 09:36 Spiriva Respimat IH 2 puff DAILY ALYSA Administration ASSESSMENT/PLAN: PMHx of schizophrenia, CAD, CABG (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 #SOB -likely 2/2 CHF -trop neg x 3 -no signs of ACS -EKG without ischemia findings -tele monitoring -mild volume overload. if in respiratory distress give 20mg IV lasix. -echo noted -cont home meds -no amio at this time per cardiology -i/o -CXR done showing cardiomegaly with possible infiltrate developing at the left base. -no abx at this time. low clinical suspicion for pna #hx of Afib/Aflutter -rate still not controlled -rate control toprol increased to 50mg BID yesterday -start diltiazem today 120mg #Severe hyponatremia -improving -patient with chronic hyponatremia per records, likely now at baseline -fluid restriction #Leukocytosis -trending down. -likely reactive + steroid use (d/nayan) #CAD -cont. current management. #Etoh abuse -counseled patient on importance of quitting drinking. #dvt ppx -eliquis Visit type - Emergency Visit Emergency Visit: Yes ED Registration Date: 09/18/19 Care time: The patient presented to the Emergency Department on the above date and was hospitalized for further evaluation of their emergent condition. - New Patient This patient is new to me today: No - Critical Care Critical Care patient: No ATTENDING PHYSICIAN STATEMENT I saw and evaluated the patient. I reviewed the resident's note and discussed the case with the resident. I agree with the resident's findings and plan as documented. SUBJECTIVE: OBJECTIVE: ASSESSMENT AND PLAN:
--- NOTE | 2019-09-21 14:35 | PN ---
Progress Note, Physician History of Present Illness: Pt seen and examined at bedside. He is not compliant with fluid intake. - Current Medication List Current Medications: Active Medications Amantadine HCl (Symmetrel -) 100 mg PO DAILY [facility] Last Admin: 09/21/19 09:35 Dose: 100 mg Apixaban (Eliquis -) 5 mg PO BID [facility] Last Admin: 09/21/19 09:34 Dose: 5 mg Atorvastatin Calcium (Lipitor -) 20 mg PO HS [facility] Last Admin: 09/20/19 21:38 Dose: 20 mg Carbidopa/Levodopa (Sinemet 10/100 -) 1 each PO BID [facility] Last Admin: 09/21/19 09:34 Dose: 1 each Citalopram Hydrobromide (Celexa -) 20 mg PO DAILY [facility] Last Admin: 09/21/19 09:34 Dose: 20 mg Diltiazem HCl (Cardizem Cd -) 120 mg PO DAILY [facility] Last Admin: 09/21/19 09:34 Dose: 120 mg Ferrous Sulfate (Feosol -) 325 mg PO DAILY [facility] Last Admin: 09/21/19 09:34 Dose: 325 mg Fluticasone Propionate (Flonase -) 2 spray NS DAILY [facility] Last Admin: 09/21/19 09:36 Dose: 2 sprays Folic Acid (Folic Acid -) 1 mg PO DAILY [facility] Last Admin: 09/21/19 09:34 Dose: 1 mg Latanoprost (Xalatan 0.005% Eye Drops -) 1 drop OU HS [facility] Last Admin: 09/20/19 21:40 Dose: 1 drop Losartan Potassium (Cozaar -) 50 mg PO DAILY [facility] Last Admin: 09/21/19 09:35 Dose: 50 mg Metoprolol Succinate (Toprol Xl -) 50 mg PO BID [facility] Last Admin: 09/21/19 09:34 Dose: 50 mg Pantoprazole Sodium (Protonix -) 20 mg PO DAILY [facility] Last Admin: 09/21/19 09:34 Dose: 20 mg Risperidone (Risperdal -) 1 mg PO BID [facility] Last Admin: 09/21/19 09:34 Dose: 1 mg Thiamine HCl (Vitamin B1 -) 100 mg PO DAILY [facility] Last Admin: 09/21/19 09:35 Dose: 100 mg Tiotropium [place] (Spiriva Respimat) 2 puff IH DAILY [facility] Last Admin: 09/21/19 09:36 Dose: 2 puff - Objective Vital Signs: Vital Signs Temperature 98 F 09/21/19 09:41 Pulse Rate 128 H 09/21/19 09:41 Respiratory Rate 20 09/21/19 09:41 Blood Pressure 131/91 09/21/19 09:41 O2 Sat by Pulse Oximetry (%) 98 09/21/19 09:00 Constitutional: Yes: Calm Eyes: Yes: Conjunctiva Clear HENT: Yes: Atraumatic Neck: Yes: Supple Cardiovascular: Yes: S1, S2 Respiratory: Yes: CTA Bilaterally Gastrointestinal: Yes: Soft Genitourinary: Yes: WNL Musculoskeletal: Yes: WNL Extremities: Yes: WNL Edema: No Neurological: Yes: Oriented Psychiatric: Yes: Oriented Labs: CBC, BMP 09/21/19 05:10 09/21/19 05:23 INR, PTT INR 1.64 (0.83-1.09) H 09/18/19 10:15 Problem List - Problems (1) Atrial fibrillation Code(s): I48.91 - UNSPECIFIED ATRIAL FIBRILLATION (2) Hyponatremia Code(s): E87.1 - HYPO-OSMOLALITY AND HYPONATREMIA Assessment/Plan Current Medications Generic Name Dose Route Start Last Admin Trade Name Freq PRN Reason Stop Dose Admin Amantadine HCl 100 mg 09/19/19 10:00 09/21/19 09:35 Symmetrel - PO 100 mg DAILY ALYSA Administration Apixaban 5 mg 09/19/19 10:00 09/21/19 09:34 Eliquis - PO 5 mg BID ALYSA Administration Atorvastatin Calcium 20 mg 09/18/19 22:00 09/20/19 21:38 Lipitor - PO 20 mg HS ALYSA Administration Carbidopa/Levodopa 1 each 09/18/19 22:00 09/21/19 09:34 Sinemet 10/100 - PO 1 each BID ALYSA Administration Citalopram Hydrobromide 20 mg 09/19/19 10:00 09/21/19 09:34 Celexa - PO 20 mg DAILY ALYSA Administration Diltiazem HCl 120 mg 09/21/19 10:00 09/21/19 09:34 Cardizem Cd - PO 120 mg DAILY ALYSA Administration Ferrous Sulfate 325 mg 09/19/19 10:00 09/21/19 09:34 Feosol - PO 325 mg DAILY ALYSA Administration Fluticasone Propionate 2 spray 09/19/19 10:00 09/21/19 09:36 Flonase - NS 2 sprays DAILY ALYSA Administration Folic Acid 1 mg 09/19/19 10:00 09/21/19 09:34 Folic Acid - PO 1 mg DAILY ALYSA Administration Latanoprost 1 drop 09/18/19 22:00 09/20/19 21:40 Xalatan 0.005% Eye Drops - OU 1 drop HS ALYSA Administration Losartan Potassium 50 mg 09/20/19 08:10 09/21/19 09:35 Cozaar - PO 50 mg DAILY ALYSA Administration Metoprolol Succinate 50 mg 09/20/19 08:09 09/21/19 09:34 Toprol Xl - PO 50 mg BID ALYSA Administration Pantoprazole Sodium 20 mg 09/19/19 10:00 09/21/19 09:34 Protonix - PO 20 mg DAILY ALYSA Administration Risperidone 1 mg 09/18/19 22:00 09/21/19 09:34 Risperdal - PO 1 mg BID ALYSA Administration Thiamine HCl 100 mg 09/19/19 10:00 09/21/19 09:35 Vitamin B1 - PO 100 mg DAILY ALYSA Administration Tiotropium [place] 2 puff 09/19/19 10:00 09/21/19 09:36 Spiriva Respimat IH 2 puff DAILY ALYSA Administration Impression 1. hyponatremia 2. schizophrenia 3. depression 4. congestion on cxr with elevated bnp 5. r/o chf - echo pending, decrease wall motion on bedside echo in er 6. etoh abuse 7. a-fib Plan - restrict free water, this includes ice - repeat urine sodium and osm - admit to monitored setting - repeat labs in am
[2019-09-21 21:49] LABS: PH,URINE 6.5 (5.0-8.0); URINE APPEARANCE CLEAR; URINE BILIRUBIN NEGATIVE (NEGATIVE); URINE COLOR YELLOW; URINE GLUCOSE (UA) NEGATIVE (NEGATIVE); URINE KETONE NEGATIVE (NEGATIVE); URINE LEUK ESTERASE NEGATIVE (NEGATIVE); URINE NITRITE NEGATIVE (NEGATIVE); URINE PROTEIN NEGATIVE (NEGATIVE)
[2019-09-21] MEDS: ATORVASTATIN CA 20 MG TABLET (FP) PO SCH (22:28)
[2019-09-21] MEDS: LATANOPROST 0.005% OPHTH SOLN 2.5ML BOTTLE OU SCH (22:29)
[2019-09-22 07:21] LABS: BASO % 0.6 % (0-2.0); HEMATOCRIT 33.5 % (35.4-49); HEMOGLOBIN 11.3 GM/dL (11.7-16.9); LYMPH % 13.1 % (8-40); MCH 29.3 pg (25.7-33.7); MCHC 33.8 g/dl (32.0-35.9); MEAN CELL VOLUME 86.6 fl (80-96); MEAN PLT VOLUME 7.6 fl (7.5-11.1); MONO % 19.3 % (3.8-10.2); PLATELET COUNT 194 K/MM3 (134-434); RBC 3.87 M/mm3 (4.00-5.60); RDW 14.4 % (11.9-15.9); WHITE BLOOD COUNT 9.5 K/mm3 (4.0-10.0)
[2019-09-22 07:48] LABS: BILIRUBIN,TOTAL 0.8 mg/dL (0.2-1); BLOOD UREA NITROGEN 16.4 mg/dL (7-18); CALCIUM 8.7 mg/dL (8.5-10.1); CREATININE 0.8 mg/dL (0.55-1.3); POTASSIUM 3.9 mmol/L (3.5-5.1); TOT PROT 6.6 g/dl (6.4-8.2)
--- NOTE | 2019-09-22 08:03 | PN ---
Teaching Attending Note Name of Resident: Radha Ramsey ATTENDING PHYSICIAN STATEMENT I saw and evaluated the patient. I reviewed the resident's note and discussed the case with the resident. I agree with the resident's findings and plan as documented. SUBJECTIVE: No new complaints OBJECTIVE: Vital Signs Temperature 98.6 F 09/22/19 02:00 Pulse Rate 113 H 09/22/19 06:00 Respiratory Rate 09/22/19 06:00 Blood Pressure 112/71 09/22/19 06:00 O2 Sat by Pulse Oximetry (%) 98 09/21/19 09:00 eneral: Elderly man, comfortable, not in distress HEENT; mucous membranes moist, no anemia, no jaundice, PERRLA, no nystagmus Neck: No JVD, supple, no bruit, thyroid palpably normal, normal carotid pulsations. Chest: Nontender, bilateral basal rales. CVS: S1-S2 irregular no murmur/gallop/rub Abdomen: Nondistended, soft, bowel sounds present. Extremities: No edema., No cough tenderness, pulses present LUMBER PULLER: AO X3 , no gross motor sensory deficit 09/22/19 06:18 09/22/19 06:18 ASSESSMENT AND PLAN:69 y.o male with PMHx of schizophrenia, CADs/p CABG AAA, PAfib/Aflutter, s/p recent PPM, ETOH abuse (3-24oz a day) dependence , chronic hyponatremia, presenting to the ED from [facility] because of worsening SOB over the past week with exertion Impression: CHF exacerbation. A. fib/flutter with RVR Problem List - Problems (1) CHF exacerbation Assessment/Plan: Patient presents with decompensated diastolic heart failure in the setting of A. fib with RVR, continue Lasix, echo shows normal ejection fraction, rate controlled, will follow cardiology recommendations continue anticoagulation Problems reviewed: Yes Code(s): I50.9 - HEART FAILURE, UNSPECIFIED (2) Hyponatremia Assessment/Plan: Today serum sodium is 129 chronic hyponatremia asymptomatic most likely due to psych medication will observe at present patient sodium is 126 will continue free water restriction and Lasix. Problems reviewed: Yes Code(s): E87.1 - HYPO-OSMOLALITY AND HYPONATREMIA (3) CAD (coronary artery disease) Assessment/Plan: Stable not in acute distress denies any chest pain no acute ST-T changes troponins are normal. Problems reviewed: Yes Code(s): I25.10 - ATHSCL HEART DISEASE OF [place] CORONARY ARTERY W/O ANG PCTRS (4) Atrial fibrillation Assessment/Plan: Atrial fibrillation/flutter with rapid ventricular rate continue anticoagulation will optimize heart rate control as per cardiology recommendations. Code(s): I48.91 - UNSPECIFIED ATRIAL FIBRILLATION (5) ETOH abuse Assessment/Plan: Recovering from EtOH withdrawal continue Librium, follow-up electrolytes and seizure precautions. Code(s): F10.10 - ALCOHOL ABUSE, UNCOMPLICATED (6) Hypercholesteremia Assessment/Plan: Continue statin Code(s): E78.0 - PURE HYPERCHOLESTEROLEMIA * DO NOT USE * (7) Hypertension Assessment/Plan: Well-controlled continue all home medications Code(s): I10 - ESSENTIAL (PRIMARY) HYPERTENSION Qualifiers: Hypertension type: essential hypertension Qualified Code(s): I10 - Essential (primary) hypertension (8) Schizophrenia Assessment/Plan: Continue all home medication at present comfortable not in acute agitation denies any suicidal homicidal ideation. Code(s): F20.9 - SCHIZOPHRENIA, UNSPECIFIED (9) COPD (chronic obstructive pulmonary disease) Assessment/Plan: Chronic continue all home medications. Code(s): J44.9 - CHRONIC OBSTRUCTIVE PULMONARY DISEASE, UNSPECIFIED (10) Parkinson disease Assessment/Plan: On amantadine Problems reviewed: Yes Code(s): G20 - PARKINSON'S DISEASE
[2019-09-22] MEDS ORDERED: PT OWN MED DRAWER 7, Y5N ONE ×2 (09:16→21:06)
[2019-09-22] MEDS: CARBIDOPA/LEVODOPA 10/100 TABLET (FP) PO SCH ×2 (09:20→21:10)
[2019-09-22] MEDS: APIXABAN 5 MG TABLET PO SCH ×2 (09:21→21:10)
[2019-09-22] MEDS: PANTOPRAZOLE 20 MG TABLET PO SCH (09:21)
[2019-09-22] MEDS: THIAMINE HCL 100 MG TABLET (FP) PO SCH (09:21)
[2019-09-22] MEDS: AMANTADINE HCL 100 MG TABLET PO SCH (09:21)
[2019-09-22] MEDS: FERROUS SO4 325 MG TABLET (FP) PO SCH (09:21)
[2019-09-22] MEDS: FOLIC ACID 1 MG TABLET (FP) PO SCH (09:21)
[2019-09-22] MEDS: CITALOPRAM HYDROBROMIDE 20 MG TABLET PO SCH (09:21)
[2019-09-22] MEDS: risperiDONE 1 MG TABLET PO SCH ×2 (09:21→21:10)
[2019-09-22] MEDS: FLUTICASONE PROP 0.05% 16 GM NASAL SPRAY NS SCH (09:22)
[2019-09-22] MEDS: LOSARTAN POTASSIUM 50 MG TABLET (FP) PO SCH (09:22)
[2019-09-22] MEDS: TIOTROPIUM BROMIDE 2.5 MCG (SPIRIVA) RESPIMAT INHALER IH SCH (09:23)
[2019-09-22 11:55] LABS: PLATELET ESTIMATE ADEQUATE
[2019-09-22] MEDS ORDERED: dilTIAZem HCL 60 MG TABLET (FP) PO ONE (12:06)
--- NOTE | 2019-09-22 12:08 | PN ---
Progress Note (short form) - Note Progress Note: s: no cp sob palps dizzy Current Medications Amantadine HCl (Symmetrel -) 100 mg PO DAILY [facility] Last Admin: 09/22/19 09:21 Dose: 100 mg Apixaban (Eliquis -) 5 mg PO BID [facility] Last Admin: 09/22/19 09:21 Dose: 5 mg Atorvastatin Calcium (Lipitor -) 20 mg PO HS [facility] Last Admin: 09/21/19 22:28 Dose: 20 mg Carbidopa/Levodopa (Sinemet 10/100 -) 1 each PO BID [facility] Last Admin: 09/22/19 09:20 Dose: 1 each Citalopram Hydrobromide (Celexa -) 20 mg PO DAILY [facility] Last Admin: 09/22/19 09:21 Dose: 20 mg Diltiazem HCl (Cardizem Cd -) 120 mg PO DAILY [facility] Last Admin: 09/22/19 09:21 Dose: 120 mg Ferrous Sulfate (Feosol -) 325 mg PO DAILY [facility] Last Admin: 09/22/19 09:21 Dose: 325 mg Fluticasone Propionate (Flonase -) 2 spray NS DAILY [facility] Last Admin: 09/22/19 09:22 Dose: 2 sprays Folic Acid (Folic Acid -) 1 mg PO DAILY [facility] Last Admin: 09/22/19 09:21 Dose: 1 mg Latanoprost (Xalatan 0.005% Eye Drops -) 1 drop OU HS [facility] Last Admin: 09/21/19 22:29 Dose: 1 drop Losartan Potassium (Cozaar -) 50 mg PO DAILY [facility] Last Admin: 09/22/19 09:22 Dose: 50 mg Metoprolol Succinate (Toprol Xl -) 50 mg PO BID [facility] Last Admin: 09/22/19 09:21 Dose: 50 mg Pantoprazole Sodium (Protonix -) 20 mg PO DAILY [facility] Last Admin: 09/22/19 09:21 Dose: 20 mg Risperidone (Risperdal -) 1 mg PO BID [facility] Last Admin: 09/22/19 09:21 Dose: 1 mg Thiamine HCl (Vitamin B1 -) 100 mg PO DAILY [facility] Last Admin: 09/22/19 09:21 Dose: 100 mg Tiotropium [place] (Spiriva Respimat) 2 puff IH DAILY [facility] Last Admin: 09/22/19 09:23 Dose: 2 puff Vital Signs Period Temp Pulse Resp BP Sys/Cesar Pulse Ox Last 24 Hr 98 F-99.7 F 91-121 18-20 101-128/67-82 nad no jvd rrr s1s2 no mrg cta bl nl eff aao3 no jaundice diaphoresis pos dp pt no carotid bruits abd nt nd pos bs no le edema ecg: sr 108, nl intervals, no ischemic changes cxr: mild congestion, ?pna tele: aflutter with variable avb, rvr at times to 130 a/p: 69 m hx schizophrenia, copd, afib/flutter with tachy/dora s/p ppm, cva, cad/mi with last cath 2008 with non obs dz, etoh abuse, smoker, here with sob. sob, chf: -no signs of acs. trop negx2. ecg w/o ischemic findings. -vol status appears stable w/o diuretic, continue to manage hyponatremia, has been improving. -check echo afib/flutter: -has ppm for tachy/dora syndrome per charts -here having aflutter with rvr at times, cont toprol, dilt added - inc to 180 mg daily, uptitrate as tolerated -on eliquis cad, remote mi: -no recent pci -no anginal sxs -no signs acs -cont statin, ac, bb etoh, tob use: -cessation discussed htn: -stable
--- NOTE | 2019-09-22 14:11 | PN ---
Physical Exam: SUBJECTIVE: Patient seen and examined. Offers no new complaints. Says he wants to go home. OBJECTIVE: Vital Signs Period Temp Pulse Resp BP Sys/Cesar Pulse Ox Last 24 Hr 98 F-99.7 F 91-121 18-20 101-128/67-82 GENERAL: a/o x 3, in NAD EYES: PEERLA: EOMI: no scleral icterus NECK: no JVD; no lymphadenopathy LUNGS: bibasilar crackles HEART: Regular rate and rhythm, normal S1 and S2 without murmur, rub or gallop. ABDOMEN: Soft, nt, nd, +abdominal hernia EXTREMITIES: warm; trace LE edema b/l Laboratory Results - last 24 hr 09/21/19 09/21/19 09/22/19 21:30 21:30 06:18 WBC 9.5 RBC 3.87 L Hgb 11.3 L Hct 33.5 L MCV 86.6 MCH 29.3 MCHC 33.8 RDW 14.4 Plt Count 194 MPV 7.6 Absolute Neuts (auto) 6.1 Total Counted 100 Neutrophils % 64.0 Neutrophils % (Manual) 71.0 Lymphocytes % 13.1 D Lymphocytes % (Manual) 9.0 Monocytes % 19.3 H Monocytes % (Manual) 16 H D Eosinophils % 3.0 D Eosinophils % (Manual) 2.0 D Basophils % 0.6 Myelocytes % (Man) 2 Nucleated RBC % 0 Platelet Estimate Adequate Platelet Comment Large platelets Sodium Potassium Chloride Carbon Dioxide Anion Gap BUN Creatinine Est GFR (CKD-EPI)AfAm Est GFR (CKD-EPI)NonAf Random Glucose Calcium Total Bilirubin AST ALT Alkaline Phosphatase Total Protein Albumin Urine Color Yellow Urine Appearance Clear Urine pH 6.5 Ur Specific [place] 1.015 Urine Protein Negative Urine Glucose (UA) Negative Urine Ketones Negative Urine Blood Negative Urine Nitrite Negative Urine Bilirubin Negative Urine Urobilinogen 1.0 Ur Leukocyte Esterase Negative Urine Osmolality 443 D 09/22/19 06:18 WBC RBC Hgb Hct MCV MCH MCHC RDW Plt Count MPV Absolute Neuts (auto) Total Counted Neutrophils % Neutrophils % (Manual) Lymphocytes % Lymphocytes % (Manual) Monocytes % Monocytes % (Manual) Eosinophils % Eosinophils % (Manual) Basophils % Myelocytes % (Man) Nucleated RBC % Platelet Estimate Platelet Comment Sodium 129 L Potassium 3.9 Chloride 94 L Carbon Dioxide 28 Anion Gap 7 L BUN 16.4 Creatinine 0.8 Est GFR (CKD-EPI)AfAm 106.38 Est GFR (CKD-EPI)NonAf 91.79 Random Glucose 85 Calcium 8.7 Total Bilirubin 0.8 AST 45 H ALT 50 Alkaline Phosphatase 89 Total Protein 6.6 Albumin 3.0 L Urine Color Urine Appearance Urine pH Ur Specific [place] Urine Protein Urine Glucose (UA) Urine Ketones Urine Blood Urine Nitrite Urine Bilirubin Urine Urobilinogen Ur Leukocyte Esterase Urine Osmolality Active Medications Generic Name Dose Route Start Last Admin Trade Name Anastacia PRN Reason Stop Dose Admin Amantadine HCl 100 mg 09/19/19 10:00 09/22/19 09:21 Symmetrel - PO 100 mg DAILY ALYSA Administration Apixaban 5 mg 09/19/19 10:00 09/22/19 09:21 Eliquis - PO 5 mg BID ALYSA Administration Atorvastatin Calcium 20 mg 09/18/19 22:00 09/21/19 22:28 Lipitor - PO 20 mg HS ALYSA Administration Carbidopa/Levodopa 1 each 09/18/19 22:00 09/22/19 09:20 Sinemet 10/100 - PO 1 each BID ALYSA Administration Citalopram Hydrobromide 20 mg 09/19/19 10:00 09/22/19 09:21 Celexa - PO 20 mg DAILY ALYSA Administration Diltiazem HCl 180 mg 09/22/19 12:07 Cardizem Cd - PO DAILY ALYSA Ferrous Sulfate 325 mg 09/19/19 10:00 09/22/19 09:21 Feosol - PO 325 mg DAILY ALYSA Administration Fluticasone Propionate 2 spray 09/19/19 10:00 09/22/19 09:22 Flonase - NS 2 sprays DAILY ALYSA Administration Folic Acid 1 mg 09/19/19 10:00 09/22/19 09:21 Folic Acid - PO 1 mg DAILY ALYSA Administration Latanoprost 1 drop 09/18/19 22:00 09/21/19 22:29 Xalatan 0.005% Eye Drops - OU 1 drop HS ALYSA Administration Losartan Potassium 50 mg 09/20/19 08:10 09/22/19 09:22 Cozaar - PO 50 mg DAILY ALYSA Administration Metoprolol Succinate 50 mg 09/20/19 08:09 09/22/19 09:21 Toprol Xl - PO 50 mg BID ALYSA Administration Pantoprazole Sodium 20 mg 09/19/19 10:00 09/22/19 09:21 Protonix - PO 20 mg DAILY ALYSA Administration Risperidone 1 mg 09/18/19 22:00 09/22/19 09:21 Risperdal - PO 1 mg BID ALYSA Administration Thiamine HCl 100 mg 09/19/19 10:00 09/22/19 09:21 Vitamin B1 - PO 100 mg DAILY ALYSA Administration Tiotropium [place] 2 puff 09/19/19 10:00 09/22/19 09:23 Spiriva Respimat IH 2 puff DAILY ALYSA Administration ASSESSMENT/PLAN: PMHx of schizophrenia, CAD, CABG (1965) AAA, PAfib/Aflutter, s/p recent PPM, ETOH abuse (3-24oz a day) dependence , chronic hyponatremia, presenting to the ED from [facility] because of worsening SOB over the past week with exertion. #SOB -likely 2/2 CHF -trop neg x 3 -no signs of ACS -EKG without ischemia findings -tele monitoring -lasix if needed. -echo noted -cont home meds -no amio at this time per cardiology -i/o #hx of Afib/Aflutter -rate still not controlled. -rate control toprol 50mg BID -diltiazem increase today to 180mg -monitor BP and HR and will adjust tomorrow if needed. #Severe hyponatremia -improving -patient with chronic hyponatremia per records -fluid restriction #Leukocytosis --resolved -likely reactive + steroid use (d/nayan) #CAD -cont. current management. #Etoh abuse -counseled patient on importance of quitting drinking. #dvt ppx -eliquis dispo: discharge in AM pending better rate control. Visit type - Emergency Visit Emergency Visit: Yes ED Registration Date: 09/18/19 Care time: The patient presented to the Emergency Department on the above date and was hospitalized for further evaluation of their emergent condition. - New Patient This patient is new to me today: Yes Date on this admission: 09/22/19 - Critical Care Critical Care patient: No ATTENDING PHYSICIAN STATEMENT I saw and evaluated the patient. I reviewed the resident's note and discussed the case with the resident. I agree with the resident's findings and plan as documented. SUBJECTIVE: OBJECTIVE: ASSESSMENT AND PLAN:
--- NOTE | 2019-09-22 15:12 | PN ---
Progress Note, Physician History of Present Illness: Pt seen and examined at bedside. He is awake and appears comfortable. - Current Medication List Current Medications: Active Medications Amantadine HCl (Symmetrel -) 100 mg PO DAILY [facility] Last Admin: 09/22/19 09:21 Dose: 100 mg Apixaban (Eliquis -) 5 mg PO BID [facility] Last Admin: 09/22/19 09:21 Dose: 5 mg Atorvastatin Calcium (Lipitor -) 20 mg PO HS [facility] Last Admin: 09/21/19 22:28 Dose: 20 mg Carbidopa/Levodopa (Sinemet 10/100 -) 1 each PO BID [facility] Last Admin: 09/22/19 09:20 Dose: 1 each Citalopram Hydrobromide (Celexa -) 20 mg PO DAILY [facility] Last Admin: 09/22/19 09:21 Dose: 20 mg Diltiazem HCl (Cardizem Cd -) 180 mg PO DAILY [facility] Ferrous Sulfate (Feosol -) 325 mg PO DAILY [facility] Last Admin: 09/22/19 09:21 Dose: 325 mg Fluticasone Propionate (Flonase -) 2 spray NS DAILY [facility] Last Admin: 09/22/19 09:22 Dose: 2 sprays Folic Acid (Folic Acid -) 1 mg PO DAILY [facility] Last Admin: 09/22/19 09:21 Dose: 1 mg Latanoprost (Xalatan 0.005% Eye Drops -) 1 drop OU HS [facility] Last Admin: 09/21/19 22:29 Dose: 1 drop Losartan Potassium (Cozaar -) 50 mg PO DAILY [facility] Last Admin: 09/22/19 09:22 Dose: 50 mg Metoprolol Succinate (Toprol Xl -) 50 mg PO BID [facility] Last Admin: 09/22/19 09:21 Dose: 50 mg Pantoprazole Sodium (Protonix -) 20 mg PO DAILY [facility] Last Admin: 09/22/19 09:21 Dose: 20 mg Risperidone (Risperdal -) 1 mg PO BID [facility] Last Admin: 09/22/19 09:21 Dose: 1 mg Thiamine HCl (Vitamin B1 -) 100 mg PO DAILY [facility] Last Admin: 09/22/19 09:21 Dose: 100 mg Tiotropium [place] (Spiriva Respimat) 2 puff IH DAILY [facility] Last Admin: 09/22/19 09:23 Dose: 2 puff - Objective Vital Signs: Vital Signs Temperature 98 F 09/22/19 09:30 Pulse Rate 118 H 09/22/19 09:30 Respiratory Rate 20 09/22/19 09:30 Blood Pressure 128/82 09/22/19 09:30 O2 Sat by Pulse Oximetry (%) 98 09/21/19 09:00 Constitutional: Yes: Calm Eyes: Yes: Conjunctiva Clear Cardiovascular: Yes: S1, S2 Respiratory: Yes: CTA Bilaterally Gastrointestinal: Yes: Normal Bowel Sounds, Soft Genitourinary: Yes: WNL Musculoskeletal: Yes: WNL Edema: No Neurological: Yes: Oriented Psychiatric: Yes: Oriented Labs: CBC, BMP 09/22/19 06:18 09/22/19 06:18 INR, PTT INR 1.64 (0.83-1.09) H 09/18/19 10:15 Problem List - Problems (1) Atrial fibrillation Code(s): I48.91 - UNSPECIFIED ATRIAL FIBRILLATION (2) Hyponatremia Code(s): E87.1 - HYPO-OSMOLALITY AND HYPONATREMIA Assessment/Plan Current Medications Generic Name Dose Route Start Last Admin Trade Name Freq PRN Reason Stop Dose Admin Amantadine HCl 100 mg 09/19/19 10:00 09/22/19 09:21 Symmetrel - PO 100 mg DAILY ALYSA Administration Apixaban 5 mg 09/19/19 10:00 09/22/19 09:21 Eliquis - PO 5 mg BID ALYSA Administration Atorvastatin Calcium 20 mg 09/18/19 22:00 09/21/19 22:28 Lipitor - PO 20 mg HS ALYSA Administration Carbidopa/Levodopa 1 each 09/18/19 22:00 09/22/19 09:20 Sinemet 10/100 - PO 1 each BID ALYSA Administration Citalopram Hydrobromide 20 mg 09/19/19 10:00 09/22/19 09:21 Celexa - PO 20 mg DAILY ALYSA Administration Diltiazem HCl 180 mg 09/22/19 12:07 Cardizem Cd - PO DAILY ALYSA Ferrous Sulfate 325 mg 09/19/19 10:00 09/22/19 09:21 Feosol - PO 325 mg DAILY ALYSA Administration Fluticasone Propionate 2 spray 09/19/19 10:00 09/22/19 09:22 Flonase - NS 2 sprays DAILY ALYSA Administration Folic Acid 1 mg 09/19/19 10:00 09/22/19 09:21 Folic Acid - PO 1 mg DAILY ALYSA Administration Latanoprost 1 drop 09/18/19 22:00 09/21/19 22:29 Xalatan 0.005% Eye Drops - OU 1 drop HS ALYSA Administration Losartan Potassium 50 mg 09/20/19 08:10 09/22/19 09:22 Cozaar - PO 50 mg DAILY ALYSA Administration Metoprolol Succinate 50 mg 09/20/19 08:09 09/22/19 09:21 Toprol Xl - PO 50 mg BID ALYSA Administration Pantoprazole Sodium 20 mg 09/19/19 10:00 09/22/19 09:21 Protonix - PO 20 mg DAILY ALYSA Administration Risperidone 1 mg 09/18/19 22:00 09/22/19 09:21 Risperdal - PO 1 mg BID AYLSA Administration Thiamine HCl 100 mg 09/19/19 10:00 09/22/19 09:21 Vitamin B1 - PO 100 mg DAILY ALYSA Administration Tiotropium [place] 2 puff 09/19/19 10:00 09/22/19 09:23 Spiriva Respimat IH 2 puff DAILY ALYSA Administration Impression 1. hyponatremia 2. schizophrenia 3. depression 4. congestion on cxr with elevated bnp 5. r/o chf - echo pending, decrease wall motion on bedside echo in er 6. etoh abuse 7. a-fib Plan - sodium improving - urine osm now elevated - restrict free water - repeat labs in am
[2019-09-22] MEDS: ATORVASTATIN CA 20 MG TABLET (FP) PO SCH (21:10)
[2019-09-22] MEDS: LATANOPROST 0.005% OPHTH SOLN 2.5ML BOTTLE OU SCH (21:16)
[2019-09-23 08:43] LABS: BLOOD UREA NITROGEN 12.1 mg/dL (7-18); CALCIUM 8.7 mg/dL (8.5-10.1); CREATININE 0.9 mg/dL (0.55-1.3); TOT PROT 7.1 g/dl (6.4-8.2)
[2019-09-23] MEDS ORDERED: PT OWN MED DRAWER 7, Y5N ONE (08:44)
[2019-09-23] MEDS: CITALOPRAM HYDROBROMIDE 20 MG TABLET PO SCH (09:24)
[2019-09-23] MEDS: risperiDONE 1 MG TABLET PO SCH ×2 (09:24→21:15)
[2019-09-23] MEDS: APIXABAN 5 MG TABLET PO SCH ×2 (09:24→21:15)
[2019-09-23] MEDS: FOLIC ACID 1 MG TABLET (FP) PO SCH (09:25)
[2019-09-23] MEDS: PANTOPRAZOLE 20 MG TABLET PO SCH (09:25)
[2019-09-23] MEDS: FERROUS SO4 325 MG TABLET (FP) PO SCH (09:25)
[2019-09-23] MEDS: LOSARTAN POTASSIUM 50 MG TABLET (FP) PO SCH (09:26)
[2019-09-23] MEDS: FLUTICASONE PROP 0.05% 16 GM NASAL SPRAY NS SCH (09:27)
[2019-09-23] MEDS: TIOTROPIUM BROMIDE 2.5 MCG (SPIRIVA) RESPIMAT INHALER IH SCH (09:27)
[2019-09-23] MEDS: CARBIDOPA/LEVODOPA 10/100 TABLET (FP) PO SCH ×2 (09:28→21:15)
[2019-09-23] MEDS: AMANTADINE HCL 100 MG TABLET PO SCH (09:28)
[2019-09-23] MEDS: THIAMINE HCL 100 MG TABLET (FP) PO SCH (09:40)
--- NOTE | 2019-09-23 11:37 | PN ---
Progress Note, Physician History of Present Illness: Pt seen and examined at bedside. He is awake and appears comfortable. - Current Medication List Current Medications: Active Medications Amantadine HCl (Symmetrel -) 100 mg PO DAILY [facility] Last Admin: 09/23/19 09:28 Dose: 100 mg Apixaban (Eliquis -) 5 mg PO BID [facility] Last Admin: 09/23/19 09:24 Dose: 5 mg Atorvastatin Calcium (Lipitor -) 20 mg PO HS [facility] Last Admin: 09/22/19 21:10 Dose: 20 mg Carbidopa/Levodopa (Sinemet 10/100 -) 1 each PO BID [facility] Last Admin: 09/23/19 09:28 Dose: 1 each Citalopram Hydrobromide (Celexa -) 20 mg PO DAILY [facility] Last Admin: 09/23/19 09:24 Dose: 20 mg Diltiazem HCl (Cardizem Cd -) 180 mg PO DAILY [facility] Last Admin: 09/23/19 09:25 Dose: 180 mg Ferrous Sulfate (Feosol -) 325 mg PO DAILY [facility] Last Admin: 09/23/19 09:25 Dose: 325 mg Fluticasone Propionate (Flonase -) 2 spray NS DAILY [facility] Last Admin: 09/23/19 09:27 Dose: 2 sprays Folic Acid (Folic Acid -) 1 mg PO DAILY [facility] Last Admin: 09/23/19 09:25 Dose: 1 mg Latanoprost (Xalatan 0.005% Eye Drops -) 1 drop OU HS [facility] Last Admin: 09/22/19 21:16 Dose: 1 drop Losartan Potassium (Cozaar -) 50 mg PO DAILY [facility] Last Admin: 09/23/19 09:26 Dose: 50 mg Metoprolol Succinate (Toprol Xl -) 75 mg PO BID [facility] Last Admin: 09/23/19 09:39 Dose: 75 mg Pantoprazole Sodium (Protonix -) 20 mg PO DAILY [facility] Last Admin: 09/23/19 09:25 Dose: 20 mg Risperidone (Risperdal -) 1 mg PO BID [facility] Last Admin: 09/23/19 09:24 Dose: 1 mg Thiamine HCl (Vitamin B1 -) 100 mg PO DAILY [facility] Last Admin: 09/23/19 09:40 Dose: 100 mg Tiotropium [place] (Spiriva Respimat) 2 puff IH DAILY [facility] Last Admin: 09/23/19 09:27 Dose: 2 puff - Objective Vital Signs: Vital Signs Temperature 98 F 09/23/19 08:46 Pulse Rate 130 H 09/23/19 08:46 Respiratory Rate 20 09/23/19 09:00 Blood Pressure 124/97 09/23/19 08:46 O2 Sat by Pulse Oximetry (%) 95 09/23/19 09:00 Constitutional: Yes: Calm Eyes: Yes: Conjunctiva Clear HENT: Yes: Atraumatic Neck: Yes: Supple Cardiovascular: Yes: S1, S2 Respiratory: Yes: CTA Bilaterally Gastrointestinal: Yes: Normal Bowel Sounds, Soft Genitourinary: Yes: WNL Musculoskeletal: Yes: WNL Edema: No Neurological: Yes: Oriented Psychiatric: Yes: Oriented Labs: CBC, BMP 09/22/19 06:18 09/23/19 05:48 INR, PTT INR 1.64 (0.83-1.09) H 09/18/19 10:15 Problem List - Problems (1) Atrial fibrillation Code(s): I48.91 - UNSPECIFIED ATRIAL FIBRILLATION (2) Hyponatremia Code(s): E87.1 - HYPO-OSMOLALITY AND HYPONATREMIA Assessment/Plan Current Medications Generic Name Dose Route Start Last Admin Trade Name Freq PRN Reason Stop Dose Admin Amantadine HCl 100 mg 09/19/19 10:00 09/23/19 09:28 Symmetrel - PO 100 mg DAILY ALYSA Administration Apixaban 5 mg 09/19/19 10:00 09/23/19 09:24 Eliquis - PO 5 mg BID ALYSA Administration Atorvastatin Calcium 20 mg 09/18/19 22:00 09/22/19 21:10 Lipitor - PO 20 mg HS ALYSA Administration Carbidopa/Levodopa 1 each 09/18/19 22:00 09/23/19 09:28 Sinemet 10/100 - PO 1 each BID ALYSA Administration Citalopram Hydrobromide 20 mg 09/19/19 10:00 09/23/19 09:24 Celexa - PO 20 mg DAILY ALYSA Administration Diltiazem HCl 180 mg 09/22/19 12:07 09/23/19 09:25 Cardizem Cd - PO 180 mg DAILY ALYSA Administration Ferrous Sulfate 325 mg 09/19/19 10:00 09/23/19 09:25 Feosol - PO 325 mg DAILY ALYSA Administration Fluticasone Propionate 2 spray 09/19/19 10:00 09/23/19 09:27 Flonase - NS 2 sprays DAILY ALYSA Administration Folic Acid 1 mg 09/19/19 10:00 09/23/19 09:25 Folic Acid - PO 1 mg DAILY ALYSA Administration Latanoprost 1 drop 09/18/19 22:00 09/22/19 21:16 Xalatan 0.005% Eye Drops - OU 1 drop HS ALYSA Administration Losartan Potassium 50 mg 09/20/19 08:10 09/23/19 09:26 Cozaar - PO 50 mg DAILY ALYSA Administration Metoprolol Succinate 75 mg 09/23/19 10:00 09/23/19 09:39 Toprol Xl - PO 75 mg BID ALYSA Administration Pantoprazole Sodium 20 mg 09/19/19 10:00 09/23/19 09:25 Protonix - PO 20 mg DAILY ALYSA Administration Risperidone 1 mg 09/18/19 22:00 09/23/19 09:24 Risperdal - PO 1 mg BID ALYSA Administration Thiamine HCl 100 mg 09/19/19 10:00 09/23/19 09:40 Vitamin B1 - PO 100 mg DAILY ALYSA Administration Tiotropium [place] 2 puff 09/19/19 10:00 09/23/19 09:27 Spiriva Respimat IH 2 puff DAILY ALYSA Administration Impression 1. hyponatremia 2. schizophrenia 3. depression 4. congestion on cxr with elevated bnp 5. r/o chf - echo pending, decrease wall motion on bedside echo in er 6. etoh abuse 7. a-fib Plan - soduim has stayed at 129 - can add trial of salt tabs - will need close follow up - he remains at risk to fall - recommend that he stops drinking alcohol
--- NOTE | 2019-09-23 12:44 | PN ---
Progress Note (short form) - Note Progress Note: s: no cp sob palps dizzy Current Medications Amantadine HCl (Symmetrel -) 100 mg PO DAILY [facility] Last Admin: 09/23/19 09:28 Dose: 100 mg Apixaban (Eliquis -) 5 mg PO BID [facility] Last Admin: 09/23/19 09:24 Dose: 5 mg Atorvastatin Calcium (Lipitor -) 20 mg PO HS [facility] Last Admin: 09/22/19 21:10 Dose: 20 mg Carbidopa/Levodopa (Sinemet 10/100 -) 1 each PO BID [facility] Last Admin: 09/23/19 09:28 Dose: 1 each Citalopram Hydrobromide (Celexa -) 20 mg PO DAILY [facility] Last Admin: 09/23/19 09:24 Dose: 20 mg Diltiazem HCl (Cardizem Cd -) 180 mg PO DAILY [facility] Last Admin: 09/23/19 09:25 Dose: 180 mg Ferrous Sulfate (Feosol -) 325 mg PO DAILY [facility] Last Admin: 09/23/19 09:25 Dose: 325 mg Fluticasone Propionate (Flonase -) 2 spray NS DAILY [facility] Last Admin: 09/23/19 09:27 Dose: 2 sprays Folic Acid (Folic Acid -) 1 mg PO DAILY [facility] Last Admin: 09/23/19 09:25 Dose: 1 mg Latanoprost (Xalatan 0.005% Eye Drops -) 1 drop OU HS [facility] Last Admin: 09/22/19 21:16 Dose: 1 drop Losartan Potassium (Cozaar -) 50 mg PO DAILY [facility] Last Admin: 09/23/19 09:26 Dose: 50 mg Metoprolol Succinate (Toprol Xl -) 75 mg PO BID [facility] Last Admin: 09/23/19 09:39 Dose: 75 mg Pantoprazole Sodium (Protonix -) 20 mg PO DAILY [facility] Last Admin: 09/23/19 09:25 Dose: 20 mg Risperidone (Risperdal -) 1 mg PO BID [facility] Last Admin: 09/23/19 09:24 Dose: 1 mg Sodium Chloride (Sodium Chloride Tablet -) 1 gm PO DAILY [facility] Thiamine HCl (Vitamin B1 -) 100 mg PO DAILY [facility] Last Admin: 09/23/19 09:40 Dose: 100 mg Tiotropium [place] (Spiriva Respimat) 2 puff IH DAILY [facility] Last Admin: 09/23/19 09:27 Dose: 2 puff Vital Signs Period Temp Pulse Resp BP Sys/Cesar Pulse Ox Last 24 Hr 97.9 F-99.1 F 70-130 18-20 99-143/61-97 95-95 nad no jvd rrr s1s2 no mrg cta bl nl eff aao3 no jaundice diaphoresis pos dp pt no carotid bruits abd nt nd pos bs no le edema ecg: sr 108, nl intervals, no ischemic changes cxr: mild congestion, ?pna tele: aflutter with variable avb, rvr at times to 130 a/p: 69 m hx schizophrenia, copd, afib/flutter with tachy/dora s/p ppm, cva, cad/mi with last cath 2008 with non obs dz, etoh abuse, smoker, here with sob. sob, chronic diastolic chf: -no signs of acs. trop negx2. ecg w/o ischemic findings. -vol status appears stable w/o diuretic, continue to manage hyponatremia, has been improving. - echo tds, grossly nl LV function afib/flutter: -has ppm for tachy/dora syndrome per charts -here having aflutter with rvr at times, cont toprol, dilt added - inc to 180 mg daily, metoprolol inc to 75 mg BID -on eliquis cad, remote mi: -no recent pci -no anginal sxs -no signs acs -cont statin, ac, bb etoh, tob use: -cessation discussed htn: -stable
[2019-09-23] MEDS: SODIUM CHLORIDE 1 GM TABLET PO SCH (12:46)
--- NOTE | 2019-09-23 12:52 | PN ---
Teaching Attending Note Name of Resident: Radha Ramsey ATTENDING PHYSICIAN STATEMENT I saw and evaluated the patient. I reviewed the resident's note and discussed the case with the resident. I agree with the resident's findings and plan as documented. SUBJECTIVE: No new complaint remained stable telemetry still shows a flutter/fibrillation OBJECTIVE: Vital Signs Temperature 98 F 09/23/19 08:46 Pulse Rate 130 H 09/23/19 08:46 Respiratory Rate 20 09/23/19 09:00 Blood Pressure 124/97 09/23/19 08:46 O2 Sat by Pulse Oximetry (%) 95 09/23/19 09:00 General: Elderly man, comfortable, not in distress HEENT; mucous membranes moist, no anemia, no jaundice, PERRLA, no nystagmus Neck: No JVD, supple, no bruit, thyroid palpably normal, normal carotid pulsations. Chest: Nontender, bilateral basal rales. CVS: S1-S2 irregular no murmur/gallop/rub Abdomen: Nondistended, soft, bowel sounds present. Extremities: No edema., No calf tenderness, pulses present RN CVOR: AO X3 , no gross motor sensory deficit CBC, BMP 09/22/19 06:18 09/23/19 05:48 ASSESSMENT AND PLAN:69 y.o male with PMHx of schizophrenia, CADs/p CABG AAA, PAfib/Aflutter, s/p recent PPM, ETOH abuse (3-24oz a day) dependence , chronic hyponatremia, presenting to the ED from [facility] because of worsening SOB over the past week with exertion Plan, heart rate is poorly controlled we will increase metoprolol to 75 mg BID and observe Problem List - Problems (1) CHF exacerbation Assessment/Plan: Patient presents with decompensated diastolic heart failure in the setting of A. fib with RVR, continue Lasix, echo shows normal ejection fraction, rate controlled, will follow cardiology recommendations continue anticoagulation Code(s): I50.9 - HEART FAILURE, UNSPECIFIED (2) Hyponatremia Assessment/Plan: Today serum sodium is 129 chronic hyponatremia asymptomatic most likely due to psych medication will observe at present patient sodium is 126 will continue free water restriction and Lasix. Code(s): E87.1 - HYPO-OSMOLALITY AND HYPONATREMIA (3) CAD (coronary artery disease) Assessment/Plan: Stable not in acute distress denies any chest pain no acute ST-T changes troponins are normal. Code(s): I25.10 - ATHSCL HEART DISEASE OF [place] CORONARY ARTERY W/O ANG PCTRS (4) Atrial fibrillation Assessment/Plan: Atrial fibrillation/flutter with rapid ventricular rate continue anticoagulation will optimize heart rate control as per cardiology recommendations. Code(s): I48.91 - UNSPECIFIED ATRIAL FIBRILLATION (5) ETOH abuse Assessment/Plan: Recovering from EtOH withdrawal continue Librium, follow-up electrolytes and seizure precautions. Code(s): F10.10 - ALCOHOL ABUSE, UNCOMPLICATED (6) Hypercholesteremia Code(s): E78.0 - PURE HYPERCHOLESTEROLEMIA * DO NOT USE * (7) Hypertension Assessment/Plan: Well-controlled continue all home medications Code(s): I10 - ESSENTIAL (PRIMARY) HYPERTENSION Qualifiers: Hypertension type: essential hypertension Qualified Code(s): I10 - Essential (primary) hypertension (8) Schizophrenia Assessment/Plan: Continue all home medication at present comfortable not in acute agitation denies any suicidal homicidal ideation. Code(s): F20.9 - SCHIZOPHRENIA, UNSPECIFIED (9) COPD (chronic obstructive pulmonary disease) Assessment/Plan: Chronic continue all home medications. Code(s): J44.9 - CHRONIC OBSTRUCTIVE PULMONARY DISEASE, UNSPECIFIED (10) Parkinson disease Assessment/Plan: On amantadine Code(s): G20 - PARKINSON'S DISEASE
[2019-09-23] MEDS: LATANOPROST 0.005% OPHTH SOLN 2.5ML BOTTLE OU SCH (21:13)
[2019-09-23] MEDS: ATORVASTATIN CA 20 MG TABLET (FP) PO SCH (21:15)
--- NOTE | 2019-09-24 09:19 | PN ---
Teaching Attending Note Name of Resident: Radha Ramsey ATTENDING PHYSICIAN STATEMENT I saw and evaluated the patient. I reviewed the resident's note and discussed the case with the resident. I agree with the resident's findings and plan as documented. SUBJECTIVE: OBJECTIVE: Vital Signs Period Temp Pulse Resp BP Sys/Cesar Pulse Ox Last 24 Hr 97.9 F-99.3 F 66-113 18-20 108-135/61-91 91 General: Elderly man, comfortable, not in distress HEENT; mucous membranes moist, no anemia, no jaundice, PERRLA, no nystagmus Neck: No JVD, supple, no bruit, thyroid palpably normal, normal carotid pulsations. Chest: Nontender, bilateral basal rales. CVS: S1-S2 irregular no murmur/gallop/rub Abdomen: Nondistended, soft, bowel sounds present. Extremities: No edema., No calf tenderness, pulses present EXCELLENCE MANAGER: AO X3 , no gross motor sensory deficit CBC, BMP 09/22/19 06:18 09/23/19 05:48 ASSESSMENT AND PLAN:69 y.o male with PMHx of schizophrenia, CADs/p CABG AAA, PAfib/Aflutter, s/p recent PPM, ETOH abuse (3-24oz a day) dependence , chronic hyponatremia, presenting to the ED from [facility] because of worsening SOB over the past week with exertion Plan, heart rate is better controlled but not optimal will increase metoprolol to 100mg BID and observe ASSESSMENT AND PLAN: Problem List - Problems (1) CHF exacerbation Assessment/Plan: Patient presents with decompensated diastolic heart failure in the setting of A. fib with RVR, continue Lasix, echo shows normal ejection fraction, rate controlled, will follow cardiology recommendations continue anticoagulation Code(s): I50.9 - HEART FAILURE, UNSPECIFIED (2) Hyponatremia Assessment/Plan: Today serum sodium is 129 chronic hyponatremia asymptomatic most likely due to psych medication will observe at present patient sodium is 126 will continue free water restriction and Lasix. Code(s): E87.1 - HYPO-OSMOLALITY AND HYPONATREMIA (3) CAD (coronary artery disease) Assessment/Plan: Stable not in acute distress denies any chest pain no acute ST-T changes troponins are normal. Code(s): I25.10 - ATHSCL HEART DISEASE OF [place] CORONARY ARTERY W/O ANG PCTRS (4) Atrial fibrillation Assessment/Plan: Atrial fibrillation/flutter with rapid ventricular rate continue anticoagulation will optimize heart rate control as per cardiology recommendations. Code(s): I48.91 - UNSPECIFIED ATRIAL FIBRILLATION (5) ETOH abuse Assessment/Plan: Recovering from EtOH withdrawal continue Librium, follow-up electrolytes and seizure precautions. Code(s): F10.10 - ALCOHOL ABUSE, UNCOMPLICATED (6) Hypercholesteremia Assessment/Plan: Continue statin Code(s): E78.0 - PURE HYPERCHOLESTEROLEMIA * DO NOT USE * (7) Hypertension Assessment/Plan: Well-controlled continue all home medications Code(s): I10 - ESSENTIAL (PRIMARY) HYPERTENSION Qualifiers: Hypertension type: essential hypertension Qualified Code(s): I10 - Essential (primary) hypertension (8) Schizophrenia Assessment/Plan: Continue all home medication at present comfortable not in acute agitation denies any suicidal homicidal ideation. Code(s): F20.9 - SCHIZOPHRENIA, UNSPECIFIED (9) COPD (chronic obstructive pulmonary disease) Assessment/Plan: Chronic continue all home medications. Code(s): J44.9 - CHRONIC OBSTRUCTIVE PULMONARY DISEASE, UNSPECIFIED (10) Parkinson disease Assessment/Plan: On amantadine Code(s): G20 - PARKINSON'S DISEASE
[2019-09-24] MEDS ORDERED: PT OWN MED DRAWER 7, Y5N ONE (09:26)
[2019-09-24] MEDS: PANTOPRAZOLE 20 MG TABLET PO SCH (09:31)
[2019-09-24] MEDS: risperiDONE 1 MG TABLET PO SCH (09:31)
[2019-09-24] MEDS: FOLIC ACID 1 MG TABLET (FP) PO SCH (09:31)
[2019-09-24] MEDS: CARBIDOPA/LEVODOPA 10/100 TABLET (FP) PO SCH (09:31)
[2019-09-24] MEDS: FERROUS SO4 325 MG TABLET (FP) PO SCH (09:31)
[2019-09-24] MEDS: CITALOPRAM HYDROBROMIDE 20 MG TABLET PO SCH (09:31)
[2019-09-24] MEDS: APIXABAN 5 MG TABLET PO SCH (09:31)
[2019-09-24] MEDS: SODIUM CHLORIDE 1 GM TABLET PO SCH (09:32)
[2019-09-24] MEDS: AMANTADINE HCL 100 MG TABLET PO SCH (09:32)
[2019-09-24] MEDS: LOSARTAN POTASSIUM 50 MG TABLET (FP) PO SCH (09:32)
[2019-09-24] MEDS: TIOTROPIUM BROMIDE 2.5 MCG (SPIRIVA) RESPIMAT INHALER IH SCH (09:32)
[2019-09-24] MEDS: THIAMINE HCL 100 MG TABLET (FP) PO SCH (09:32)
[2019-09-24] MEDS: FLUTICASONE PROP 0.05% 16 GM NASAL SPRAY NS SCH (09:39)
[2019-09-24 09:46] VITALS: BP 116/80; PULSE 98; TEMP 97.3
--- NOTE | 2019-09-24 10:55 | PN ---
Progress Note (short form) - Note Progress Note: s: no cp sob palps dizzy Current Medications Generic Name Dose Route Start Last Admin Trade Name Freq PRN Reason Stop Dose Admin Amantadine HCl 100 mg 09/19/19 10:00 09/24/19 09:32 Symmetrel - PO 100 mg DAILY ALYSA Administration Apixaban 5 mg 09/19/19 10:00 09/24/19 09:31 Eliquis - PO 5 mg BID ALYSA Administration Atorvastatin Calcium 20 mg 09/18/19 22:00 09/23/19 21:15 Lipitor - PO 20 mg HS ALYSA Administration Carbidopa/Levodopa 1 each 09/18/19 22:00 09/24/19 09:31 Sinemet 10/100 - PO 1 each BID ALYSA Administration Citalopram Hydrobromide 20 mg 09/19/19 10:00 09/24/19 09:31 Celexa - PO 20 mg DAILY ALYSA Administration Diltiazem HCl 180 mg 09/22/19 12:07 09/24/19 09:32 Cardizem Cd - PO 180 mg DAILY ALYSA Administration Ferrous Sulfate 325 mg 09/19/19 10:00 09/24/19 09:31 Feosol - PO 325 mg DAILY ALYSA Administration Fluticasone Propionate 2 spray 09/19/19 10:00 09/24/19 09:39 Flonase - NS 2 sprays DAILY ALYSA Administration Folic Acid 1 mg 09/19/19 10:00 09/24/19 09:31 Folic Acid - PO 1 mg DAILY ALYSA Administration Latanoprost 1 drop 09/18/19 22:00 09/23/19 21:13 Xalatan 0.005% Eye Drops - OU 1 drop HS ALYSA Administration Losartan Potassium 50 mg 09/20/19 08:10 09/24/19 09:32 Cozaar - PO 50 mg DAILY ALYSA Administration Metoprolol Succinate 100 mg 09/24/19 07:30 09/24/19 09:31 Toprol Xl - PO 100 mg BID ALYSA Administration Pantoprazole Sodium 20 mg 09/19/19 10:00 09/24/19 09:31 Protonix - PO 20 mg DAILY ALYSA Administration Risperidone 1 mg 09/18/19 22:00 09/24/19 09:31 Risperdal - PO 1 mg BID ALYSA Administration Sodium Chloride 1 gm 09/23/19 11:45 09/24/19 09:32 Sodium Chloride Tablet - PO 1 gm DAILY ALYSA Administration Thiamine HCl 100 mg 09/19/19 10:00 09/24/19 09:32 Vitamin B1 - PO 100 mg DAILY ALYSA Administration Tiotropium [place] 2 puff 09/19/19 10:00 09/24/19 09:32 Spiriva Respimat IH 2 puff DAILY ALYSA Administration Vital Signs Period Temp Pulse Resp BP Sys/Cesar Pulse Ox Last 24 Hr 97.3 F-99.3 F 66-113 - 108-135/61-91 91-97 nad no jvd rrr s1s2 no mrg cta bl nl eff aao3 no jaundice diaphoresis pos dp pt no carotid bruits abd nt nd pos bs no le edema CBC, BMP 09/22/19 06:18 09/23/19 05:48 ecg: sr 108, nl intervals, no ischemic changes cxr: mild congestion, ?pna tele: aflutter, rate controlled a/p: 69 m hx schizophrenia, copd, afib/flutter with tachy/dora s/p ppm, cva, cad/mi with last cath 2008 with non obs dz, etoh abuse, smoker, here with sob. sob, chf: -echo here unremarkable -no signs of acs. trop negx2. ecg w/o ischemic findings. -vol status appears stable w/o diuretic, continue to manage hyponatremia afib/flutter: -has ppm for tachy/dora syndrome per charts -tele showing aflutter, rate controlled now on current meds. -on eliquis cad, remote mi: -no recent pci -no anginal sxs -no signs acs -cont statin, ac, bb etoh, tob use: -cessation discussed htn: -stable cardiac dey stable for dc
--- NOTE | 2019-09-24 11:09 | DS ---
Physical Exam: SUBJECTIVE: Patient seen and examined. Offers no new complaints. Says he wants to go home. OBJECTIVE: Vital Signs Period Temp Pulse Resp BP Sys/Cesar Pulse Ox Last 24 Hr 97.3 F-99.3 F 66-113 18-20 108-135/61-91 91-97 PHYSICAL EXAM GENERAL: a/o x 3, in NAD EYES: PEERLA: EOMI: no scleral icterus NECK: no JVD; no lymphadenopathy LUNGS: bibasilar crackles HEART: Regular rate and rhythm, normal S1 and S2 without murmur, rub or gallop. ABDOMEN: Soft, nt, nd, +abdominal hernia EXTREMITIES: warm; trace LE edema b/l LABS HOSPITAL COURSE: Date of Admission:09/18/19 PMHx of schizophrenia, CAD, CABG (1965) AAA, PAfib/Aflutter, s/p recent PPM, ETOH abuse (3-24oz a day) dependence , chronic hyponatremia, presenting to the ED from [facility] because of worsening SOB over the past week with exertion. #SOB -resolved -likely 2/2 CHF -no lasix given during hospitalization -trop neg x 3 -no signs of ACS -EKG without ischemia findings -echo noted -cont home meds #hx of Afib/Aflutter -HR controlled. -will discharge on Toprol XL 100mg daily -discharge on diltiazem 180mg #Severe hyponatremia -improving -patient with chronic hyponatremia per records -fluid restriction #Leukocytosis -resolved -likely reactive + steroid use (d/nayan) #CAD -cont. current management. #Etoh abuse -counseled patient on importance of quitting drinking. Date of Discharge: 09/24/19 Minutes to complete discharge: 35 Discharge Summary Problems reviewed: Yes Reason For Visit: COPD,PNEUMONIA Current Active Problems Atrial fibrillation (Acute) CAD (coronary artery disease) (Acute) CHF exacerbation (Acute) COPD (chronic obstructive pulmonary disease) (Acute) ETOH abuse (Acute) Hyponatremia (Acute) Parkinson disease (Acute) - Instructions Diet, Activity, Other Instructions: You were admitted because you had shortness of breath, electrolyte abnormalities and a rapid heart rate. Please follow up with your primary care doctor in 1 week. Follow up with your paralegal supervisor in 1 week. We made some changes to your medications. We took you off your Nicardapine and decreased your Losartan to 50mg We also added Diltiazem 180mg once a day. We increased your Toprol XL to 100mg twice a day. If you develop chest pain, shortness of breath, or palpitations, then please go to the emergency department. Referrals: Ahmet Fernández [Primary Care Provider] - 1 Week Disposition: [facility] FACILITY - Home Medications Comprehensive Discharge Medication List: Ambulatory Orders Albuterol Sulfate Inhaler - [Ventolin HFA Inhaler -] 1 puff IH TID 09/18/19 Amantadine HCl [Amantadine] 100 mg PO DAILY 09/18/19 Carbidopa/Levodopa 10/100 [Sinemet 10/100 -] 1 each PO BID 09/18/19 Citalopram Hydrobromide [Celexa -] 20 mg PO DAILY 09/18/19 Ferrous Sulfate 325 mg PO DAILY 09/18/19 Fluticasone Prop 0.05% Nasal [Flonase -] 2 spray NS DAILY 09/18/19 Fluticasone/Salmeterol [Advair 250-50 Diskus] 1 each IH DAILY 09/18/19 Haloperidol Lactate [Haldol] 5 mg IM MONTHLY 09/18/19 Ipratropium/Albuterol Sulfate [Combivent Respimat 20-100 Mcg] 1 gm IH QID Latanoprost/Pf [Latanoprost 0.005% Eye Drop] 1 drop OU DAILY 09/18/19 Omeprazole Magnesium [Prilosec Otc] 20 mg PO DAILY 09/18/19 Risperidone [Risperdal] 1 mg PO BID 09/18/19 Umeclidinium [place] [Incruse Ellipta] 1 puff IH DAILY 09/18/19 Diltiazem Cd [Cardizem Cd -] 180 mg PO DAILY #30 cap.cd.24h 09/24/19 Folic Acid - 1 mg PO DAILY tablet 09/24/19 Losartan Potassium [Cozaar -] 50 mg PO DAILY #30 tablet 09/24/19 Metoprolol Succinate [Toprol XL -] 100 mg PO BID #60 tab.sr.24h 09/24/19 Simvastatin [Zocor] 20 mg PO HS #30 tablet 09/24/19 Thiamine HCl [Vitamin B1 -] 100 mg PO DAILY tablet 09/24/19 This patient is new to me today: No Emergency Visit: Yes ED Registration Date: 09/18/19 Care time: The patient presented to the Emergency Department on the above date and was hospitalized for further evaluation of their emergent condition. Critical Care patient: No - Discharge Referral Referred to [facility] No ATTENDING PHYSICIAN STATEMENT I saw and evaluated the patient. I reviewed the resident's note and discussed the case with the resident. I agree with the resident's findings and plan as documented. SUBJECTIVE: OBJECTIVE: ASSESSMENT AND PLAN:
--- NOTE | 2019-09-24 13:02 | PN ---
Progress Note, Physician History of Present Illness: Pt seen and examined at bedside. He is awake and alert. He denies shortness of breath. - Current Medication List Current Medications: Active Medications Amantadine HCl (Symmetrel -) 100 mg PO DAILY [facility] Last Admin: 09/24/19 09:32 Dose: 100 mg Apixaban (Eliquis -) 5 mg PO BID [facility] Last Admin: 09/24/19 09:31 Dose: 5 mg Atorvastatin Calcium (Lipitor -) 20 mg PO HS [facility] Last Admin: 09/23/19 21:15 Dose: 20 mg Carbidopa/Levodopa (Sinemet 10/100 -) 1 each PO BID [facility] Last Admin: 09/24/19 09:31 Dose: 1 each Citalopram Hydrobromide (Celexa -) 20 mg PO DAILY [facility] Last Admin: 09/24/19 09:31 Dose: 20 mg Diltiazem HCl (Cardizem Cd -) 180 mg PO DAILY [facility] Last Admin: 09/24/19 09:32 Dose: 180 mg Ferrous Sulfate (Feosol -) 325 mg PO DAILY [facility] Last Admin: 09/24/19 09:31 Dose: 325 mg Fluticasone Propionate (Flonase -) 2 spray NS DAILY [facility] Last Admin: 09/24/19 09:39 Dose: 2 sprays Folic Acid (Folic Acid -) 1 mg PO DAILY [facility] Last Admin: 09/24/19 09:31 Dose: 1 mg Latanoprost (Xalatan 0.005% Eye Drops -) 1 drop OU HS [facility] Last Admin: 09/23/19 21:13 Dose: 1 drop Losartan Potassium (Cozaar -) 50 mg PO DAILY [facility] Last Admin: 09/24/19 09:32 Dose: 50 mg Metoprolol Succinate (Toprol Xl -) 100 mg PO BID [facility] Last Admin: 09/24/19 09:31 Dose: 100 mg Pantoprazole Sodium (Protonix -) 20 mg PO DAILY [facility] Last Admin: 09/24/19 09:31 Dose: 20 mg Risperidone (Risperdal -) 1 mg PO BID [facility] Last Admin: 09/24/19 09:31 Dose: 1 mg Sodium Chloride (Sodium Chloride Tablet -) 1 gm PO DAILY [facility] Last Admin: 09/24/19 09:32 Dose: 1 gm Thiamine HCl (Vitamin B1 -) 100 mg PO DAILY [facility] Last Admin: 09/24/19 09:32 Dose: 100 mg Tiotropium [place] (Spiriva Respimat) 2 puff IH DAILY ALYSA Last Admin: 09/24/19 09:32 Dose: 2 puff - Objective Vital Signs: Vital Signs Temperature 97.3 F L 09/24/19 09:00 Pulse Rate 98 H 09/24/19 09:00 Respiratory Rate 18 09/24/19 09:00 Blood Pressure 116/80 09/24/19 09:00 O2 Sat by Pulse Oximetry (%) 97 09/24/19 09:00 Constitutional: Yes: Calm Eyes: Yes: Conjunctiva Clear HENT: Yes: Atraumatic Neck: Yes: Supple Cardiovascular: Yes: S1, S2 Respiratory: Yes: CTA Bilaterally Gastrointestinal: Yes: Normal Bowel Sounds, Soft Genitourinary: Yes: WNL Musculoskeletal: Yes: WNL Edema: No Neurological: Yes: Oriented Psychiatric: Yes: Oriented Labs: CBC, BMP 09/22/19 06:18 09/23/19 05:48 INR, PTT INR 1.64 (0.83-1.09) H 09/18/19 10:15 Problem List - Problems (1) Atrial fibrillation Code(s): I48.91 - UNSPECIFIED ATRIAL FIBRILLATION (2) Hyponatremia Code(s): E87.1 - HYPO-OSMOLALITY AND HYPONATREMIA Assessment/Plan Current Medications Generic Name Dose Route Start Last Admin Trade Name Anastacia PRN Reason Stop Dose Admin Amantadine HCl 100 mg 09/19/19 10:00 09/24/19 09:32 Symmetrel - PO 100 mg DAILY ALYSA Administration Apixaban 5 mg 09/19/19 10:00 09/24/19 09:31 Eliquis - PO 5 mg BID ALYSA Administration Atorvastatin Calcium 20 mg 09/18/19 22:00 09/23/19 21:15 Lipitor - PO 20 mg HS ALYSA Administration Carbidopa/Levodopa 1 each 09/18/19 22:00 09/24/19 09:31 Sinemet 10/100 - PO 1 each BID ALYSA Administration Citalopram Hydrobromide 20 mg 09/19/19 10:00 09/24/19 09:31 Celexa - PO 20 mg DAILY ALYSA Administration Diltiazem HCl 180 mg 09/22/19 12:07 09/24/19 09:32 Cardizem Cd - PO 180 mg DAILY ALYSA Administration Ferrous Sulfate 325 mg 09/19/19 10:00 09/24/19 09:31 Feosol - PO 325 mg DAILY ALYSA Administration Fluticasone Propionate 2 spray 09/19/19 10:00 09/24/19 09:39 Flonase - NS 2 sprays DAILY ALYSA Administration Folic Acid 1 mg 09/19/19 10:00 09/24/19 09:31 Folic Acid - PO 1 mg DAILY ALYSA Administration Latanoprost 1 drop 09/18/19 22:00 09/23/19 21:13 Xalatan 0.005% Eye Drops - OU 1 drop HS ALYSA Administration Losartan Potassium 50 mg 09/20/19 08:10 09/24/19 09:32 Cozaar - PO 50 mg DAILY ALYSA Administration Metoprolol Succinate 100 mg 09/24/19 07:30 09/24/19 09:31 Toprol Xl - PO 100 mg BID ALYSA Administration Pantoprazole Sodium 20 mg 09/19/19 10:00 09/24/19 09:31 Protonix - PO 20 mg DAILY ALYSA Administration Risperidone 1 mg 09/18/19 22:00 09/24/19 09:31 Risperdal - PO 1 mg BID ALYSA Administration Sodium Chloride 1 gm 09/23/19 11:45 09/24/19 09:32 Sodium Chloride Tablet - PO 1 gm DAILY ALYSA Administration Thiamine HCl 100 mg 09/19/19 10:00 09/24/19 09:32 Vitamin B1 - PO 100 mg DAILY ALYSA Administration Tiotropium [place] 2 puff 09/19/19 10:00 09/24/19 09:32 Spiriva Respimat IH 2 puff DAILY ALYSA Administration Impression 1. hyponatremia 2. schizophrenia 3. depression 4. congestion on cxr with elevated bnp 5. r/o chf - echo pending, decrease wall motion on bedside echo in er 6. etoh abuse 7. a-fib Plan - no new labs - will need outpt follow up - can see in office if he comes - restrict free water - recommend he does not drink alcohol
== END 2019-09-24 14:30 | DRG 640 ==
LOC: JER 09:07 → JERBED 14:14 → J4W 23:41
PROVIDERS: ADMIT Internal Medicine; ATTEND Internal Medicine
DX: E87.1 Hypo-osmolality and hyponatremia (principal); I50.31 Acute diastolic (congestive) heart failure; J44.1 Chronic obstructive pulmonary disease with (acute) exacerbation; I48.92 Unspecified atrial flutter; D50.9 Iron deficiency anemia, unspecified; I11.0 Hypertensive heart disease with heart failure; I48.91 Unspecified atrial fibrillation; I25.10 Atherosclerotic heart disease of native coronary artery without angina pectoris; G20 Parkinson's disease; F10.10 Alcohol abuse, uncomplicated; F20.9 Schizophrenia, unspecified; Z95.1 Presence of aortocoronary bypass graft; D72.829 Elevated white blood cell count, unspecified; F32.9 Major depressive disorder, single episode, unspecified
CPT/HCPCS: 36415; 71045-TC-FY; 80048; 80053; 80061; 81003; 82550; 82553; 83721; 83735; 83880; 83935; 84100; 84300; 84443; 84484; 85025; 85610; 87040; 87086; 87804; 87899; 90670; 93005; 93010; 93306-TC; 99285-25; J2794

== ENCOUNTER 2020-11-07 14:15 | Inpatient (IN) | payer OTHER ==
[2020-11-07] MEDS ORDERED: ACETAMINOPHEN 1000 MG/100 ML VIAL (NON FORMULARY) IVPB ONE (14:41)
[2020-11-07] MEDS ORDERED: ASPIRIN 81 MG CHEWABLE TABLETS PO ONE (14:42)
[2020-11-07] MEDS ORDERED: ACETAMINOPHEN INJECTION 100 ML IVPB ONE (14:42)
[2020-11-07 14:43] VITALS: BMI 27.3
[2020-11-07] MEDS ORDERED: ASPIRIN 81 MG CHEWABLE TABLETS ONE (14:44)
[2020-11-07] MEDS ORDERED: VANCOMYCIN 1 GM in D5W (PRE-DOCKED) 1,000 MG/250 ML IVPB ONE (14:58)
[2020-11-07] MEDS ORDERED: CEFEPIME HCL/D5W 2 GM/50 ML BAG IVPB ONE (15:05)
[2020-11-07] MEDS ORDERED: AZTREONAM 2 GM/10 ML SYRINGE (RESTRICTED TO ID) IVPUSH ONE (15:08)
[2020-11-07] MEDS ORDERED: VANCOMYCIN 1 GRAM (PRE-DOCKED) 1,000 MG/250 ML BAG IVPB ONE (15:10)
[2020-11-07] MEDS ORDERED: CEFEPIME 2 GM/100 ML BAG IVPB ONE (15:11)
[2020-11-07] MEDS ORDERED: AZTREONAM 2 GM in DEXTROSE 5%-WATER 100 ML IVPB ONE (15:15)
[2020-11-07] MEDS ORDERED: AZTREONAM 1 GM VIAL (RESTRICTED TO ID) ONE (15:49)
[2020-11-07 15:54] LABS: BASO % 0.2 % (0-2.0); EOS % 0.3 % (0-4.5); HEMATOCRIT 36.8 % (35.4-49); HEMOGLOBIN 12.5 GM/dL (11.7-16.9); MCH 30.1 pg (25.7-33.7); MCHC 33.9 g/dl (32.0-35.9); MEAN CELL VOLUME 88.8 fl (80-96); MEAN PLT VOLUME 8.5 fl (7.5-11.1); MONO % 10.4 % (3.8-10.2); NEUT % 85.1 % (42.8-82.8); PLATELET COUNT 240 K/MM3 (134-434); RBC 4.14 M/mm3 (4.00-5.60); RDW 13.3 % (11.9-15.9); WHITE BLOOD COUNT 17.7 K/mm3 (4.0-10.0)
[2020-11-07 16:02] LABS: INR 1.94 (0.83-1.09)
[2020-11-07 16:05] LABS: ACTIVATED PTT 35.1 SECONDS (25.2-36.5)
[2020-11-07 16:09] LABS: CHLORIDE 90 mmol/L (98-107); POTASSIUM 4.3 mmol/L (3.5-5.1); SODIUM 127 mmol/L (136-145)
[2020-11-07 16:12] LABS: ALBUMIN 3.3 g/dl (3.4-5.0); ANION GAP 9 MMOL/L (8-16); CO2 29 mmol/L (21-32); GLUCOSE,RANDOM 102 mg/dL (74-106)
[2020-11-07 16:15] LABS: CREATININE 0.7 mg/dL (0.55-1.3); SGOT/AST 23 U/L (15-37); SGPT/ALT 35 U/L (13-61)
[2020-11-07 16:16] LABS: BILIRUBIN,TOTAL 0.5 mg/dL (0.2-1); TOT PROT 7.3 g/dl (6.4-8.2)
[2020-11-07 16:18] LABS: ALK PHOS 124 U/L (45-117)
[2020-11-07 16:26] LABS: CALCIUM 8.8 mg/dL (8.5-10.1)
[2020-11-07 16:58] LABS: ANISOCYTOSIS 1+; MACROCYTOSIS 0; PLATELET ESTIMATE NORMAL
[2020-11-07] MEDS ORDERED: AZITHROMYCIN IVPB 500 MG in DEXTROSE 5%-WATER - 250 ML IVPB ONE (17:28)
[2020-11-07] MEDS ORDERED: AZITHROMYCIN IVPB 500 MG/250 ML BAG IVPB ONE (17:48)
[2020-11-07 17:56] LABS: N-TERMINAL BNP 531.3 pg/ml (5-125)
[2020-11-07] MEDS ORDERED: dilTIAZem HCL 50 MG/10 ML - 10 ML VIAL IVPUSH ONE ×2 (18:01→18:28)
[2020-11-07] MEDS ORDERED: dilTIAZem HCL 50 MG/10 ML - 10 ML VIAL ONE (18:24)
[2020-11-07 18:31] LABS: EPI CELLS 13 /uL (0-25.1); HYALINE CASTS 0 /uL (0-3.1); PH,URINE 6.5 (5.0-8.0); URINE APPEARANCE CLEAR; URINE BILIRUBIN NEGATIVE (NEGATIVE); URINE COLOR YELLOW; URINE GLUCOSE (UA) NEGATIVE (NEGATIVE); URINE KETONE NEGATIVE (NEGATIVE); URINE LEUK ESTERASE 2+ (NEGATIVE); URINE NITRITE POSITIVE (NEGATIVE); URINE PROTEIN NEGATIVE (NEGATIVE); URINE RBC 8 /uL (0-23.9); URINE WBC 88 /uL (0-25.8)
[2020-11-07] MEDS ORDERED: dilTIAZem HCL 60 MG TABLET PO ONE (18:35)
[2020-11-07] MEDS ORDERED: dilTIAZem HCL 60 MG TABLET ONE (18:37)
[2020-11-07 18:42] LABS: URINE BACTERIA 690.1 /uL (0-1359)
[2020-11-07] MEDS ORDERED: ONDANSETRON 4 MG/2 ML VIAL IVPUSH PRN (21:06)
[2020-11-07] MEDS ORDERED: ACETAMINOPHEN 325 MG TABLET (FP) PO PRN (21:07)
[2020-11-07] MEDS ORDERED: ALBUTEROL SO4 2.5/IPRATROPIUM 0.5 INH SOL 3 ML VIAL.NEB. NEB PRN (21:11)
[2020-11-07] MEDS ORDERED: SODIUM CHLORIDE 1,000 ML IV SCH (21:15)
[2020-11-07] MEDS: NICOTINE 21 MG/24 HOURS TOPICAL PATCH TD SCH (21:51)
[2020-11-08] MEDS ORDERED: SODIUM CHLORIDE 2,517 ML IV ONE (04:16)
[2020-11-08] MEDS ORDERED: SODIUM CHLORIDE 1,000 ML IV SCH (04:30)
[2020-11-08 08:25] LABS: BASO % 0.5 % (0-2.0); EOS % 0.5 % (0-4.5); HEMATOCRIT 34.4 % (35.4-49); HEMOGLOBIN 11.8 GM/dL (11.7-16.9); LYMPH % 6.8 % (8-40); MCH 31.3 pg (25.7-33.7); MCHC 34.3 g/dl (32.0-35.9); MEAN CELL VOLUME 91.2 fl (80-96); MONO % 7.5 % (3.8-10.2); NEUT % 84.7 % (42.8-82.8); PLATELET COUNT 219 K/MM3 (134-434); RBC 3.77 M/mm3 (4.00-5.60); RDW 13.2 % (11.9-15.9); WHITE BLOOD COUNT 22.2 K/mm3 (4.0-10.0)
[2020-11-08 08:46] LABS: CHLORIDE 92 mmol/L (98-107); POTASSIUM 3.8 mmol/L (3.5-5.1); SODIUM 130 mmol/L (136-145)
[2020-11-08 08:48] LABS: ALBUMIN 2.8 g/dl (3.4-5.0); ANION GAP 6 MMOL/L (8-16); CO2 32 mmol/L (21-32); MAGNESIUM 1.7 mg/dL (1.8-2.4)
[2020-11-08 08:49] LABS: BLOOD UREA NITROGEN 7.5 mg/dL (7-18); CALCIUM 8.6 mg/dL (8.5-10.1); GLUCOSE,RANDOM 83 mg/dL (74-106)
[2020-11-08 08:51] LABS: CREATININE 0.5 mg/dL (0.55-1.3); SGOT/AST 15 U/L (15-37); SGPT/ALT 34 U/L (13-61)
[2020-11-08 08:52] LABS: PHOSPHOROUS 3.3 mg/dL (2.5-4.9)
[2020-11-08 08:53] LABS: CHOLESTEROL 88 mg/dL (50-200); TOT PROT 6.7 g/dl (6.4-8.2); TRIGLYCERIDES 48 mg/dL (0-150)
[2020-11-08 08:54] LABS: BILIRUBIN,TOTAL 0.5 mg/dL (0.2-1); LDL CHOLESTEROL (ONLY SJRH) 27 mg/dL (5-100)
[2020-11-08 08:55] LABS: ALK PHOS 122 U/L (45-117); HDL CHOLESTEROL 46 mg/dL (40-60)
[2020-11-08] MEDS ORDERED: cefTRIAXone SODIUM 1 GM VIAL ONE (09:06)
[2020-11-08] MEDS ORDERED: DEXTROSE 5%-WATER - 50 ML IVPB ONE (09:06)
[2020-11-08] MEDS ORDERED: MAGNESIUM SULF 50% (8.12 MEQ/2 ML-1 GM VIAL) IVPB ONE (09:30)
[2020-11-08] MEDS ORDERED: METOPROLOL TARTRATE 25 MG TABLET (FP) PO ONE (09:30)
[2020-11-08] MEDS: CEFTRIAXONE 1 GM in DEXTROSE 5%-WATER - 50 ML IVPB SCH (09:41)
[2020-11-08] MEDS ORDERED: ENOXAPARIN NA (PORCINE) 40 MG/0.4 ML DISP.SYRIN SQ SCH (10:00)
[2020-11-08] MEDS ORDERED: IPRATROPIUM BR 0.02% 0.5 MG/2.5 ML VIAL.NEB. NEB PRN (10:04)
[2020-11-08] MEDS: AZITHROMYCIN IVPB 500 MG/250 ML BAG IVPB SCH (10:55)
[2020-11-08] MEDS: NICOTINE 21 MG/24 HOURS TOPICAL PATCH TD SCH (11:55)
[2020-11-08 13:08] LABS: ANISOCYTOSIS 1+; MACROCYTOSIS 0; PLATELET ESTIMATE NORMAL
[2020-11-08] MEDS: APIXABAN 5 MG TABLET PO SCH (21:23)
[2020-11-08] MEDS: MONTELUKAST NA 10 MG TABLET PO SCH (21:23)
[2020-11-08] MEDS: risperiDONE 1 MG TABLET PO SCH (21:23)
[2020-11-08] MEDS: ATORVASTATIN CA 10 MG TABLET (FP) PO SCH (21:23)
[2020-11-08] MEDS: CARBIDOPA/LEVODOPA 10/100 TABLET (FP) PO SCH (21:23)
[2020-11-09 08:07] LABS: BASO % 0.3 % (0-2.0); EOS % 1.4 % (0-4.5); HEMATOCRIT 33.2 % (35.4-49); HEMOGLOBIN 11.6 GM/dL (11.7-16.9); LYMPH % 7.9 % (8-40); MCH 31.6 pg (25.7-33.7); MCHC 34.8 g/dl (32.0-35.9); MEAN CELL VOLUME 90.8 fl (80-96); MEAN PLT VOLUME 8.1 fl (7.5-11.1); MONO % 6.7 % (3.8-10.2); NEUT % 83.7 % (42.8-82.8); PLATELET COUNT 253 K/MM3 (134-434); RBC 3.66 M/mm3 (4.00-5.60); WHITE BLOOD COUNT 15.1 K/mm3 (4.0-10.0)
[2020-11-09 08:30] LABS: POTASSIUM 3.8 mmol/L (3.5-5.1)
[2020-11-09 08:33] LABS: ALBUMIN 2.7 g/dl (3.4-5.0); CALCIUM 8.8 mg/dL (8.5-10.1)
[2020-11-09 08:34] LABS: BLOOD UREA NITROGEN 10.1 mg/dL (7-18)
[2020-11-09 08:37] LABS: CREATININE 0.6 mg/dL (0.55-1.3); PHOSPHOROUS 3.4 mg/dL (2.5-4.9)
[2020-11-09 08:38] LABS: BILIRUBIN,TOTAL 0.7 mg/dL (0.2-1); TOT PROT 6.8 g/dl (6.4-8.2)
[2020-11-09] MEDS ORDERED: cefTRIAXone SODIUM 1 GM VIAL ONE (11:15)
[2020-11-09] MEDS ORDERED: DEXTROSE 5%-WATER - 50 ML IVPB ONE (11:15)
[2020-11-09] MEDS: THIAMINE HCL 100 MG TABLET (FP) PO SCH (11:19)
[2020-11-09] MEDS: CEFTRIAXONE 1 GM in DEXTROSE 5%-WATER - 50 ML IVPB SCH (11:19)
[2020-11-09] MEDS: FOLIC ACID 1 MG TABLET (FP) PO SCH (11:19)
[2020-11-09] MEDS: APIXABAN 5 MG TABLET PO SCH ×2 (11:19→21:04)
[2020-11-09] MEDS: PANTOPRAZOLE 20 MG TABLET PO SCH (11:19)
[2020-11-09] MEDS: CARBIDOPA/LEVODOPA 10/100 TABLET (FP) PO SCH ×2 (11:20→21:04)
[2020-11-09] MEDS: AZITHROMYCIN IVPB 500 MG/250 ML BAG IVPB SCH (11:20)
[2020-11-09] MEDS: risperiDONE 1 MG TABLET PO SCH ×2 (11:20→21:04)
[2020-11-09] MEDS: NICOTINE 21 MG/24 HOURS TOPICAL PATCH TD SCH (11:21)
[2020-11-09] MEDS: AMANTADINE HCL 100 MG TABLET PO SCH (11:21)
[2020-11-09] MEDS: CITALOPRAM HYDROBROMIDE 20 MG TABLET PO SCH (11:21)
[2020-11-09] MEDS: ATORVASTATIN CA 10 MG TABLET (FP) PO SCH (21:04)
[2020-11-09] MEDS: MONTELUKAST NA 10 MG TABLET PO SCH (21:04)
[2020-11-10] MEDS ORDERED: METOPROLOL TARTRATE 5 MG/5 ML VIAL IVPUSH ONE (08:21)
[2020-11-10 09:00] LABS: POTASSIUM 3.9 mmol/L (3.5-5.1)
[2020-11-10 09:04] LABS: BLOOD UREA NITROGEN 8.8 mg/dL (7-18); CALCIUM 8.1 mg/dL (8.5-10.1); MAGNESIUM 1.7 mg/dL (1.8-2.4)
[2020-11-10 09:06] LABS: BASO % 0.6 % (0-2.0); EOS % 3.8 % (0-4.5); HEMATOCRIT 35.5 % (35.4-49); HEMOGLOBIN 12.7 GM/dL (11.7-16.9); LYMPH % 13.1 % (8-40); MCH 32.2 pg (25.7-33.7); MCHC 35.8 g/dl (32.0-35.9); MEAN PLT VOLUME 8.2 fl (7.5-11.1); MONO % 9.4 % (3.8-10.2); NEUT % 73.1 % (42.8-82.8); PLATELET COUNT 247 K/MM3 (134-434); RBC 3.94 M/mm3 (4.00-5.60); WHITE BLOOD COUNT 10.8 K/mm3 (4.0-10.0)
[2020-11-10 09:08] LABS: BILIRUBIN,TOTAL 0.4 mg/dL (0.2-1); CREATININE 0.5 mg/dL (0.55-1.3)
[2020-11-10] MEDS ORDERED: cefTRIAXone SODIUM 1 GM VIAL ONE (09:44)
[2020-11-10] MEDS ORDERED: DEXTROSE 5%-WATER - 50 ML IVPB ONE (09:44)
[2020-11-10] MEDS: CEFTRIAXONE 1 GM in DEXTROSE 5%-WATER - 50 ML IVPB SCH (09:49)
[2020-11-10] MEDS: PANTOPRAZOLE 20 MG TABLET PO SCH (09:49)
[2020-11-10] MEDS: FOLIC ACID 1 MG TABLET (FP) PO SCH (09:49)
[2020-11-10] MEDS: AMANTADINE HCL 100 MG TABLET PO SCH (09:49)
[2020-11-10] MEDS: AZITHROMYCIN IVPB 500 MG/250 ML BAG IVPB SCH (09:49)
[2020-11-10] MEDS: NICOTINE 21 MG/24 HOURS TOPICAL PATCH TD SCH (09:49)
[2020-11-10] MEDS: CITALOPRAM HYDROBROMIDE 20 MG TABLET PO SCH (09:49)
[2020-11-10] MEDS: THIAMINE HCL 100 MG TABLET (FP) PO SCH (09:49)
[2020-11-10] MEDS: risperiDONE 1 MG TABLET PO SCH ×2 (09:49→21:25)
[2020-11-10] MEDS: CARBIDOPA/LEVODOPA 10/100 TABLET (FP) PO SCH ×2 (09:49→21:25)
[2020-11-10] MEDS: APIXABAN 5 MG TABLET PO SCH ×2 (09:49→21:24)
[2020-11-10] MEDS: METOPROLOL TARTRATE 5 MG/5 ML VIAL IVPUSH PRN (14:45)
[2020-11-10] MEDS: MONTELUKAST NA 10 MG TABLET PO SCH (21:25)
[2020-11-10] MEDS: ATORVASTATIN CA 10 MG TABLET (FP) PO SCH (21:25)
[2020-11-11] MEDS: METOPROLOL TARTRATE 5 MG/5 ML VIAL IVPUSH PRN ×4 (00:58→23:26)
[2020-11-11 08:39] LABS: BASO % 0.9 % (0-2.0); EOS % 7.8 % (0-4.5); HEMATOCRIT 37.6 % (35.4-49); HEMOGLOBIN 12.6 GM/dL (11.7-16.9); LYMPH % 17.6 % (8-40); MCH 29.5 pg (25.7-33.7); MCHC 33.6 g/dl (32.0-35.9); MEAN CELL VOLUME 87.9 fl (80-96); MEAN PLT VOLUME 8.4 fl (7.5-11.1); MONO % 10.5 % (3.8-10.2); NEUT % 63.2 % (42.8-82.8); PLATELET COUNT 244 K/MM3 (134-434); RBC 4.28 M/mm3 (4.00-5.60); RDW 13.4 % (11.9-15.9); WHITE BLOOD COUNT 8.4 K/mm3 (4.0-10.0)
[2020-11-11] MEDS ORDERED: cefTRIAXone SODIUM 1 GM VIAL ONE (09:02)
[2020-11-11] MEDS ORDERED: DEXTROSE 5%-WATER - 50 ML IVPB ONE (09:02)
[2020-11-11 09:06] LABS: POTASSIUM 4.3 mmol/L (3.5-5.1)
[2020-11-11 09:09] LABS: ALBUMIN 2.8 g/dl (3.4-5.0); BLOOD UREA NITROGEN 9.5 mg/dL (7-18)
[2020-11-11 09:10] LABS: CALCIUM 8.7 mg/dL (8.5-10.1)
[2020-11-11 09:13] LABS: CREATININE 0.5 mg/dL (0.55-1.3); PHOSPHOROUS 3.8 mg/dL (2.5-4.9)
[2020-11-11 09:14] LABS: BILIRUBIN,TOTAL 0.5 mg/dL (0.2-1); TOT PROT 6.9 g/dl (6.4-8.2)
[2020-11-11] MEDS: risperiDONE 1 MG TABLET PO SCH ×2 (09:21→21:23)
[2020-11-11] MEDS: CITALOPRAM HYDROBROMIDE 20 MG TABLET PO SCH (09:22)
[2020-11-11] MEDS: FOLIC ACID 1 MG TABLET (FP) PO SCH (09:22)
[2020-11-11] MEDS: PANTOPRAZOLE 20 MG TABLET PO SCH (09:22)
[2020-11-11] MEDS: APIXABAN 5 MG TABLET PO SCH ×2 (09:22→21:23)
[2020-11-11] MEDS: NICOTINE 21 MG/24 HOURS TOPICAL PATCH TD SCH (09:22)
[2020-11-11] MEDS: CARBIDOPA/LEVODOPA 10/100 TABLET (FP) PO SCH ×2 (09:28→21:23)
[2020-11-11] MEDS: AMANTADINE HCL 100 MG TABLET PO SCH (09:29)
[2020-11-11] MEDS: CEFTRIAXONE 1 GM in DEXTROSE 5%-WATER - 50 ML IVPB SCH (09:31)
[2020-11-11] MEDS: THIAMINE HCL 100 MG TABLET (FP) PO SCH (09:53)
[2020-11-11] MEDS ORDERED: metoPROLOL SUCCINATE 25 MG TAB.SR.24H (FP) PO ONE (14:36)
[2020-11-11] MEDS: ATORVASTATIN CA 10 MG TABLET (FP) PO SCH (21:23)
[2020-11-11] MEDS: MONTELUKAST NA 10 MG TABLET PO SCH (21:23)
[2020-11-12] MEDS ORDERED: METOPROLOL TARTRATE 50 MG TABLET (FP) PO PRN (00:24)
[2020-11-12] MEDS ORDERED: cefTRIAXone SODIUM 1 GM VIAL ONE (09:34)
[2020-11-12] MEDS ORDERED: DEXTROSE 5%-WATER - 50 ML IVPB ONE (09:34)
[2020-11-12] MEDS: PANTOPRAZOLE 20 MG TABLET PO SCH (09:44)
[2020-11-12] MEDS: THIAMINE HCL 100 MG TABLET (FP) PO SCH (09:44)
[2020-11-12] MEDS: AMANTADINE HCL 100 MG TABLET PO SCH (09:44)
[2020-11-12] MEDS: CARBIDOPA/LEVODOPA 10/100 TABLET (FP) PO SCH ×2 (09:44→22:02)
[2020-11-12] MEDS: FOLIC ACID 1 MG TABLET (FP) PO SCH (09:44)
[2020-11-12] MEDS: risperiDONE 1 MG TABLET PO SCH ×2 (09:44→22:02)
[2020-11-12] MEDS: APIXABAN 5 MG TABLET PO SCH ×2 (09:44→22:02)
[2020-11-12] MEDS: CITALOPRAM HYDROBROMIDE 20 MG TABLET PO SCH (09:45)
[2020-11-12] MEDS: CEFTRIAXONE 1 GM in DEXTROSE 5%-WATER - 50 ML IVPB SCH (09:46)
[2020-11-12] MEDS: NICOTINE 21 MG/24 HOURS TOPICAL PATCH TD SCH (09:46)
[2020-11-12 10:34] LABS: POTASSIUM 4.3 mmol/L (3.5-5.1)
[2020-11-12 10:48] LABS: BLOOD UREA NITROGEN 9.6 mg/dL (7-18)
[2020-11-12 10:52] LABS: PHOSPHOROUS 3.7 mg/dL (2.5-4.9)
[2020-11-12 10:56] LABS: CREATININE 0.5 mg/dL (0.55-1.3)
[2020-11-12] MEDS: ATORVASTATIN CA 10 MG TABLET (FP) PO SCH (22:02)
[2020-11-12] MEDS: MONTELUKAST NA 10 MG TABLET PO SCH (22:02)
[2020-11-13] MEDS ORDERED: cefTRIAXone SODIUM 1 GM VIAL ONE (10:46)
[2020-11-13] MEDS ORDERED: DEXTROSE 5%-WATER - 50 ML IVPB ONE (10:46)
[2020-11-13] MEDS: APIXABAN 5 MG TABLET PO SCH ×2 (10:51→21:24)
[2020-11-13] MEDS: PANTOPRAZOLE 20 MG TABLET PO SCH (10:51)
[2020-11-13] MEDS: THIAMINE HCL 100 MG TABLET (FP) PO SCH (10:51)
[2020-11-13] MEDS: FOLIC ACID 1 MG TABLET (FP) PO SCH (10:52)
[2020-11-13] MEDS: CEFTRIAXONE 1 GM in DEXTROSE 5%-WATER - 50 ML IVPB SCH (10:54)
[2020-11-13] MEDS: NICOTINE 21 MG/24 HOURS TOPICAL PATCH TD SCH (10:54)
[2020-11-13] MEDS: AMANTADINE HCL 100 MG TABLET PO SCH (10:54)
[2020-11-13] MEDS: risperiDONE 1 MG TABLET PO SCH ×2 (10:54→21:25)
[2020-11-13] MEDS: CARBIDOPA/LEVODOPA 10/100 TABLET (FP) PO SCH ×2 (10:55→21:25)
[2020-11-13] MEDS: CITALOPRAM HYDROBROMIDE 20 MG TABLET PO SCH (11:19)
[2020-11-13] MEDS: ATORVASTATIN CA 10 MG TABLET (FP) PO SCH (21:24)
[2020-11-13] MEDS: MONTELUKAST NA 10 MG TABLET PO SCH (21:25)
[2020-11-14] MEDS ORDERED: cefTRIAXone SODIUM 1 GM VIAL ONE (09:33)
[2020-11-14] MEDS ORDERED: DEXTROSE 5%-WATER - 50 ML IVPB ONE (09:33)
[2020-11-14 09:50] LABS: EOS % 7.2 % (0-4.5); LYMPH % 18.8 % (8-40); MCH 30.6 pg (25.7-33.7); MCHC 34.2 g/dl (32.0-35.9); MEAN CELL VOLUME 89.2 fl (80-96); MEAN PLT VOLUME 8.2 fl (7.5-11.1); MONO % 9.4 % (3.8-10.2); NEUT % 63.6 % (42.8-82.8); PLATELET COUNT 283 K/MM3 (134-434); RBC 3.92 M/mm3 (4.00-5.60); RDW 12.9 % (11.9-15.9)
[2020-11-14 10:20] LABS: POTASSIUM 4.4 mmol/L (3.5-5.1)
[2020-11-14 10:23] LABS: CALCIUM 8.8 mg/dL (8.5-10.1)
[2020-11-14 10:26] LABS: MAGNESIUM 1.8 mg/dL (1.8-2.4)
[2020-11-14 10:27] LABS: CREATININE 0.6 mg/dL (0.55-1.3); PHOSPHOROUS 3.8 mg/dL (2.5-4.9)
[2020-11-14] MEDS: PANTOPRAZOLE 20 MG TABLET PO SCH (11:00)
[2020-11-14] MEDS: CEFTRIAXONE 1 GM in DEXTROSE 5%-WATER - 50 ML IVPB SCH (11:00)
[2020-11-14] MEDS: CITALOPRAM HYDROBROMIDE 20 MG TABLET PO SCH (11:00)
[2020-11-14] MEDS: NICOTINE 21 MG/24 HOURS TOPICAL PATCH TD SCH (11:00)
[2020-11-14] MEDS: AMANTADINE HCL 100 MG TABLET PO SCH (11:00)
[2020-11-14] MEDS: APIXABAN 5 MG TABLET PO SCH ×2 (11:00→22:27)
[2020-11-14] MEDS: risperiDONE 1 MG TABLET PO SCH ×2 (11:00→22:26)
[2020-11-14] MEDS: THIAMINE HCL 100 MG TABLET (FP) PO SCH (11:00)
[2020-11-14] MEDS: CARBIDOPA/LEVODOPA 10/100 TABLET (FP) PO SCH ×2 (11:00→22:26)
[2020-11-14] MEDS: FOLIC ACID 1 MG TABLET (FP) PO SCH (11:00)
[2020-11-14] MEDS: MONTELUKAST NA 10 MG TABLET PO SCH (22:27)
[2020-11-14] MEDS: ATORVASTATIN CA 10 MG TABLET (FP) PO SCH (22:28)
[2020-11-15 07:33] LABS: BASO % 0.9 % (0-2.0); EOS % 7.6 % (0-4.5); HEMATOCRIT 39.2 % (35.4-49); HEMOGLOBIN 13.4 GM/dL (11.7-16.9); LYMPH % 22.4 % (8-40); MCH 29.5 pg (25.7-33.7); MCHC 34.1 g/dl (32.0-35.9); MEAN CELL VOLUME 86.7 fl (80-96); MEAN PLT VOLUME 7.8 fl (7.5-11.1); MONO % 9.5 % (3.8-10.2); NEUT % 59.6 % (42.8-82.8); PLATELET COUNT 341 K/MM3 (134-434); RBC 4.53 M/mm3 (4.00-5.60); RDW 12.9 % (11.9-15.9); WHITE BLOOD COUNT 6.7 K/mm3 (4.0-10.0)
[2020-11-15 07:49] LABS: POTASSIUM 4.4 mmol/L (3.5-5.1)
[2020-11-15 08:01] LABS: ALBUMIN 3.1 g/dl (3.4-5.0); CALCIUM 9.2 mg/dL (8.5-10.1); MAGNESIUM 2.1 mg/dL (1.8-2.4)
[2020-11-15 08:04] LABS: CREATININE 0.6 mg/dL (0.55-1.3); PHOSPHOROUS 3.6 mg/dL (2.5-4.9)
[2020-11-15 08:05] LABS: BILIRUBIN,TOTAL 0.4 mg/dL (0.2-1); TOT PROT 7.7 g/dl (6.4-8.2)
[2020-11-15] MEDS: CITALOPRAM HYDROBROMIDE 20 MG TABLET PO SCH (09:54)
[2020-11-15] MEDS: PANTOPRAZOLE 20 MG TABLET PO SCH (09:54)
[2020-11-15] MEDS: APIXABAN 5 MG TABLET PO SCH ×2 (09:54→21:57)
[2020-11-15] MEDS: risperiDONE 1 MG TABLET PO SCH ×2 (09:54→21:57)
[2020-11-15] MEDS: NICOTINE 21 MG/24 HOURS TOPICAL PATCH TD SCH (09:54)
[2020-11-15] MEDS: FOLIC ACID 1 MG TABLET (FP) PO SCH (09:54)
[2020-11-15] MEDS: CARBIDOPA/LEVODOPA 10/100 TABLET (FP) PO SCH ×2 (09:55→21:57)
[2020-11-15] MEDS: AMANTADINE HCL 100 MG TABLET PO SCH (09:55)
[2020-11-15] MEDS: THIAMINE HCL 100 MG TABLET (FP) PO SCH (09:56)
[2020-11-15] MEDS: MONTELUKAST NA 10 MG TABLET PO SCH (21:57)
[2020-11-15] MEDS: ATORVASTATIN CA 10 MG TABLET (FP) PO SCH (21:57)
[2020-11-16] MEDS: APIXABAN 5 MG TABLET PO SCH (10:01)
[2020-11-16] MEDS: THIAMINE HCL 100 MG TABLET (FP) PO SCH (10:01)
[2020-11-16] MEDS: FOLIC ACID 1 MG TABLET (FP) PO SCH (10:01)
[2020-11-16] MEDS: PANTOPRAZOLE 20 MG TABLET PO SCH (10:01)
[2020-11-16] MEDS: risperiDONE 1 MG TABLET PO SCH (10:02)
[2020-11-16] MEDS: NICOTINE 21 MG/24 HOURS TOPICAL PATCH TD SCH (10:02)
[2020-11-16] MEDS: CITALOPRAM HYDROBROMIDE 20 MG TABLET PO SCH (10:03)
[2020-11-16] MEDS: CARBIDOPA/LEVODOPA 10/100 TABLET (FP) PO SCH (10:03)
[2020-11-16] MEDS: AMANTADINE HCL 100 MG TABLET PO SCH (10:03)
[2020-11-16 17:20] VITALS: BP 116/80; PULSE 60; TEMP 97.9
== END 2020-11-16 17:31 | DRG 871 ==
LOC: JER 14:15 → JERBED 18:38 → J6WEST-2 11-08 00:03
PROVIDERS: ADMIT Hospitalist; ATTEND Student in an Organized Health Care Education/Training Program
DX: A41.89 Other specified sepsis (principal); J18.9 Pneumonia, unspecified organism; J96.01 Acute respiratory failure with hypoxia; E87.1 Hypo-osmolality and hyponatremia; E87.2 Acidosis; I48.92 Unspecified atrial flutter; N39.0 Urinary tract infection, site not specified; I48.0 Paroxysmal atrial fibrillation; I25.10 Atherosclerotic heart disease of native coronary artery without angina pectoris; I25.2 Old myocardial infarction; J44.9 Chronic obstructive pulmonary disease, unspecified; F20.9 Schizophrenia, unspecified; I48.91 Unspecified atrial fibrillation; I71.2 Thoracic aortic aneurysm, without rupture; F17.200 Nicotine dependence, unspecified, uncomplicated; I27.20 Pulmonary hypertension, unspecified; G20 Parkinson's disease; D72.829 Elevated white blood cell count, unspecified; R00.0 Tachycardia, unspecified; F10.10 Alcohol abuse, uncomplicated; Z72.89 Other problems related to lifestyle; Z86.73 Personal history of transient ischemic attack (TIA), and cerebral infarction without residual deficits; Z95.1 Presence of aortocoronary bypass graft; Z95.0 Presence of cardiac pacemaker
CPT/HCPCS: 36415; 71045-TC-FY; 71275-TC; 76604; 80048; 80053; 80061; 81003; 82728; 82962; 83036; 83605; 83721; 83735; 83880; 84100; 84484; 85025; 85379; 85610; 85730; 86140; 87040; 87086; 87804; 87899; 93005; 93010; 93306-TC; 93308; 93970; 94640; 94761; 97116-GP; 97161-GP; 99285-25; C9803; J0131; J2794; U0003

== ENCOUNTER 2020-11-23 01:10 | Inpatient (IN) | payer OTHER ==
[2020-11-23] MEDS ORDERED: dilTIAZem HCL 50 MG/10 ML - 10 ML VIAL IVPUSH ONE (02:05)
[2020-11-23] MEDS ORDERED: dilTIAZem HCL 50 MG/10 ML - 10 ML VIAL ONE (02:30)
[2020-11-23 02:43] LABS: BASO % 1.1 % (0-2.0); EOS % 15.7 % (0-4.5); HEMATOCRIT 38.1 % (35.4-49); HEMOGLOBIN 12.6 GM/dL (11.7-16.9); LYMPH % 38.1 % (8-40); MCH 29.1 pg (25.7-33.7); MCHC 33.1 g/dl (32.0-35.9); MEAN CELL VOLUME 88.1 fl (80-96); MEAN PLT VOLUME 8.5 fl (7.5-11.1); NEUT % 33.1 % (42.8-82.8); PLATELET COUNT 343 K/MM3 (134-434); RBC 4.32 M/mm3 (4.00-5.60); RDW 13.6 % (11.9-15.9); WHITE BLOOD COUNT 6.6 K/mm3 (4.0-10.0)
[2020-11-23 03:04] LABS: CHLORIDE 101 mmol/L (98-107); SODIUM 133 mmol/L (136-145)
[2020-11-23 03:06] LABS: ALBUMIN 3.2 g/dl (3.4-5.0); BLOOD UREA NITROGEN 20.8 mg/dL (7-18); CALCIUM 8.9 mg/dL (8.5-10.1); CO2 28 mmol/L (21-32); GLUCOSE,RANDOM 81 mg/dL (74-106); MAGNESIUM 2.1 mg/dL (1.8-2.4)
[2020-11-23 03:09] LABS: SGOT/AST 50 U/L (15-37); SGPT/ALT 24 U/L (13-61)
[2020-11-23 03:10] LABS: CREATININE 0.9 mg/dL (0.55-1.3)
[2020-11-23 03:11] LABS: BILIRUBIN,TOTAL 0.6 mg/dL (0.2-1); TOT PROT 7.3 g/dl (6.4-8.2)
[2020-11-23 03:12] LABS: ALK PHOS 99 U/L (45-117)
[2020-11-23 04:49] LABS: ANION GAP 5 MMOL/L (8-16); POTASSIUM 6.9 mmol/L (3.5-5.1)
[2020-11-23] MEDS ORDERED: dilTIAZem HCL 30 MG TABLET ONE ×3 (07:10→18:04)
[2020-11-23] MEDS: dilTIAZem HCL 30 MG TABLET PO SCH ×4 (07:13→23:07)
[2020-11-23 07:33] LABS: ALBUMIN 3.3 g/dl (3.4-5.0); BLOOD UREA NITROGEN 18.6 mg/dL (7-18); CALCIUM 9.3 mg/dL (8.5-10.1)
[2020-11-23 07:35] LABS: CREATININE 0.8 mg/dL (0.55-1.3)
[2020-11-23 07:37] LABS: BILIRUBIN,TOTAL 0.7 mg/dL (0.2-1); TOT PROT 7.2 g/dl (6.4-8.2)
[2020-11-23] MEDS ORDERED: METOPROLOL TARTRATE 5 MG/5 ML VIAL IVPUSH PRN (08:20)
[2020-11-23] MEDS ORDERED: APIXABAN 5 MG TABLET ONE (11:49)
[2020-11-23] MEDS: APIXABAN 5 MG TABLET PO SCH ×2 (11:49→23:07)
[2020-11-23] MEDS: ALBUTEROL SO4 2.5/IPRATROPIUM 0.5 INH SOL 3 ML VIAL.NEB. NEB SCH ×2 (17:26→20:39)
[2020-11-23] MEDS ORDERED: ALBUTEROL SO4 2.5/IPRATROPIUM 0.5 INH SOL 3 ML VIAL.NEB. NEB ONE (17:26)
[2020-11-23] MEDS ORDERED: PT OWN MED DRAWER 7, Y5N ONE (22:46)
[2020-11-23] MEDS: MONTELUKAST NA 10 MG TABLET PO SCH (23:07)
[2020-11-23] MEDS: CARBIDOPA/LEVODOPA 10/100 TABLET (FP) PO SCH (23:07)
[2020-11-23] MEDS: risperiDONE 1 MG TABLET PO SCH (23:07)
[2020-11-23] MEDS: AMANTADINE HCL 100 MG TABLET PO SCH (23:08)
[2020-11-23] MEDS: BUDESONIDE/FORMETEROL FUMARATE 160/4.5 mcg INHALER IH SCH (23:27)
[2020-11-24] MEDS: dilTIAZem HCL 30 MG TABLET PO SCH ×4 (05:56→23:25)
[2020-11-24] MEDS: CARBIDOPA/LEVODOPA 10/100 TABLET (FP) PO SCH ×3 (05:57→22:20)
[2020-11-24 07:48] LABS: HEMATOCRIT 35.8 % (35.4-49); HEMOGLOBIN 12.3 GM/dL (11.7-16.9); MCH 29.6 pg (25.7-33.7); MCHC 34.2 g/dl (32.0-35.9); MEAN CELL VOLUME 86.5 fl (80-96); PLATELET COUNT 309 K/MM3 (134-434); RBC 4.14 M/mm3 (4.00-5.60); RDW 13.6 % (11.9-15.9); WHITE BLOOD COUNT 5.4 K/mm3 (4.0-10.0)
[2020-11-24 07:59] LABS: POTASSIUM 4.5 mmol/L (3.5-5.1)
[2020-11-24 08:01] LABS: CALCIUM 8.9 mg/dL (8.5-10.1)
[2020-11-24 08:03] LABS: BLOOD UREA NITROGEN 13.5 mg/dL (7-18)
[2020-11-24 08:05] LABS: CREATININE 0.7 mg/dL (0.55-1.3)
[2020-11-24 08:29] VITALS: BMI 25.7
[2020-11-24] MEDS ORDERED: PT OWN MED DRAWER 7, Y5N ONE ×3 (09:37→22:06)
[2020-11-24] MEDS: CITALOPRAM HYDROBROMIDE 20 MG TABLET PO SCH (09:39)
[2020-11-24] MEDS: APIXABAN 5 MG TABLET PO SCH ×2 (09:39→22:20)
[2020-11-24] MEDS: FERROUS SO4 325 MG TABLET (FP) PO SCH (09:39)
[2020-11-24] MEDS: risperiDONE 1 MG TABLET PO SCH ×2 (09:40→22:20)
[2020-11-24] MEDS: AMANTADINE HCL 100 MG TABLET PO SCH ×2 (09:40→22:21)
[2020-11-24] MEDS: BUDESONIDE/FORMETEROL FUMARATE 160/4.5 mcg INHALER IH SCH ×2 (09:45→22:20)
[2020-11-24] MEDS: ALBUTEROL SO4 2.5/IPRATROPIUM 0.5 INH SOL 3 ML VIAL.NEB. NEB SCH ×4 (11:25→20:05)
[2020-11-24] MEDS ORDERED: metoPROLOL SUCCINATE 25 MG TAB.SR.24H (FP) PO SCH (15:45)
[2020-11-24] MEDS ORDERED: METOPROLOL TARTRATE 25 MG TABLET (FP) PO ONE (18:29)
[2020-11-24] MEDS ORDERED: METOPROLOL TARTRATE 5 MG/5 ML VIAL IVPUSH ONE (18:55)
[2020-11-24] MEDS: MONTELUKAST NA 10 MG TABLET PO SCH (22:20)
[2020-11-25] MEDS: CARBIDOPA/LEVODOPA 10/100 TABLET (FP) PO SCH ×2 (06:15→15:03)
[2020-11-25] MEDS: dilTIAZem HCL 30 MG TABLET PO SCH ×2 (06:15→12:53)
[2020-11-25] MEDS: ALBUTEROL SO4 2.5/IPRATROPIUM 0.5 INH SOL 3 ML VIAL.NEB. NEB SCH ×3 (07:42→15:02)
[2020-11-25] MEDS ORDERED: PT OWN MED DRAWER 7, Y5N ONE ×2 (09:19→15:02)
[2020-11-25] MEDS: CITALOPRAM HYDROBROMIDE 20 MG TABLET PO SCH (09:22)
[2020-11-25] MEDS: FERROUS SO4 325 MG TABLET (FP) PO SCH (09:22)
[2020-11-25] MEDS: risperiDONE 1 MG TABLET PO SCH (09:22)
[2020-11-25] MEDS: APIXABAN 5 MG TABLET PO SCH (09:23)
[2020-11-25] MEDS: AMANTADINE HCL 100 MG TABLET PO SCH (09:23)
[2020-11-25] MEDS ORDERED: metoPROLOL SUCCINATE 25 MG TAB.SR.24H (FP) PO SCH ×2 (10:00)
[2020-11-25] MEDS: BUDESONIDE/FORMETEROL FUMARATE 160/4.5 mcg INHALER IH SCH (10:23)
[2020-11-25 15:00] VITALS: BP 94/66; PULSE 91; TEMP 98.3
== END 2020-11-25 17:15 | disposition home health service (06) | DRG 309 ==
LOC: JER 01:10 → JERBED 05:40 → J4S 20:16
PROVIDERS: ADMIT Internal Medicine; ATTEND Family Medicine
DX: I48.92 Unspecified atrial flutter (principal); F20.89 Other schizophrenia; J44.9 Chronic obstructive pulmonary disease, unspecified; I25.10 Atherosclerotic heart disease of native coronary artery without angina pectoris; Z95.1 Presence of aortocoronary bypass graft; I48.0 Paroxysmal atrial fibrillation; F10.10 Alcohol abuse, uncomplicated; Z88.0 Allergy status to penicillin; G20 Parkinson's disease; I25.2 Old myocardial infarction; Z95.0 Presence of cardiac pacemaker; I49.5 Sick sinus syndrome
CPT/HCPCS: 36415; 71045-TC-FY; 71250-TC; 80048; 80053; 82550; 82553; 83605; 83735; 84439; 84443; 84484; 85025; 85027; 87040; 93005; 93010; 94640; 97116-GP; 97161-GP; 99285-25; C9803; J2794; U0003